=== PATIENT | male | born 1955 | race Hispanic/Latino ===

== ENCOUNTER 2016-11-13 12:23 | Inpatient (IN) | payer BC ==
[2016-11-13 12:30] VITALS: BMI 49.9
--- NOTE | 2016-11-13 13:32 | ED PDOC ---
Arrival/HPI <Luis ArmandoEdward kent - Last Filed: 11/13/16 20:12> <Celestino Vyas - Last Filed: 11/13/16 21:23> - General Chief Complaint: Shortness Of Breath Time Seen by Provider: 11/13/16 12:43 - History of Present Illness Narrative History of Present Illness (Text): 11/13/16 13:15 61 M with no pertinent PMHx presents with 6-8 weeks of gradually worsening sob. Pt states that 8 weeks ago, after flying back from [place], he had a URI infection for which he was Rx'd Abx. He started feeling sob at that time, shortly after the flight. He states that he is usually able to walk 4-6 blocks without trouble, but now he starts struggling after 2 blocks. He also states that he has trouble breathing and wheezes early in the morning. Patient denies any f/ch/cp/n/v/d. Patient further denies a cough or sputum production. He does state that his b/l LE have been more edematous. He has an appointment with Dr. Chahal next Wednesday for a nuclear stress test. No further complaints. (Edward Durán) Past Medical History - Provider Review Nursing Documentation Reviewed: Yes - Infectious Disease Hx of Infectious Diseases: None - Tetanus Immunization Tetanus Immunization: Unknown - Cardiac Hx Hypertension: Yes Hx Pacemaker: No - Pulmonary Hx Respiratory Disorders: No - Neurological Hx Paralysis: No - HEENT Hx HEENT Disorder: Yes (WEARS GLASSES) - Renal Hx Renal Disorder: No - Endocrine/Metabolic Hx Endocrine Disorders: Yes (DM TYPE 2) Hx Diabetes Mellitus Type 2: Yes - Hematological/Oncological Hx Blood Transfusions: No Hx Blood Transfusion Reaction: No - Integumentary Hx Dermatological Disorder: No - Musculoskeletal/Rheumatological Hx Musculoskeletal Disorders: No - Gastrointestinal Hx Gastrointestinal Disorders: No - Genitourinary/Gynecological Hx Genitourinary Disorders: No - Psychiatric Hx Emotional Abuse: No Hx Physical Abuse: No Hx Substance Use: No - Surgical History Hx Cholecystectomy: Yes Other/Comment: RLE sx - Anesthesia Hx Anesthesia: Yes Hx Anesthesia Reactions: No Hx Malignant Hyperthermia: No - Suicidal Assessment Feels Threatened In Home Enviroment: No <Edward Durán - Last Filed: 11/13/16 20:12> Family/Social History - Physician Review Nursing Documentation Reviewed: Yes Family/Social History: Diabetes Smoking Status: Never Smoked Hx Alcohol Use: Yes (SOCIAL) Frequency of alcohol use: Socially Hx Substance Use: No Hx Substance Use Treatment: No <Edward Durán - Last Filed: 11/13/16 20:12> Allergies/Home Meds <Edward Durán - Last Filed: 11/13/16 20:12> <AsaelCelestino Tony - Last Filed: 11/13/16 21:23> Allergies/Adverse Reactions: Allergies Sulfa (Sulfonamide Antibiotics) Allergy (Verified 11/13/16 12:30) RASH Home Medications: Home Meds Medication Instructions Recorded Confirmed Repaglinide [Prandin] 2 mg PO DAILY 06/21/13 11/13/16 Dapagliflozin Propanediol [Farxiga] 10 mg PO DAILY 08/27/14 11/13/16 Omeprazole [Prilosec] 20 mg PO DAILY 08/28/14 11/13/16 Amlodipine Besylate/Benazepril 1 cap PO DAILY 11/13/16 11/13/16 [Lotrel 10-20 mg Capsule] Benzonatate [Tessalon Perle] 200 mg pe PO TID 11/13/16 11/13/16 Budesonide [Pulmicort Flexhaler] 1 inh IH BID 11/13/16 11/13/16 Ursodiol [Actigall] 1 tab PO BID 11/13/16 11/13/16 metFORMIN [glucOPHAGE] 1 tab PO BID 11/13/16 11/13/16 Review of Systems - Physician Review All systems were reviewed & negative as marked: Yes - Review of Systems Constitutional: Normal. absent: Fatigue, Weight Change, Fevers Eyes: Normal. absent: Vision Changes, Photophobia, Eye Pain ENT: Normal. absent: Hearing Changes, Tinnitus, TMJ Pain Respiratory: SOB. absent: Cough, Sputum, Wheezing Cardiovascular: Edema. absent: Chest Pain, Palpitations, Calf Pain, SOTO, Orthopnea, Syncope Gastrointestinal: Normal. absent: Abdominal Pain, Stool Changes, Constipation, Diarrhea, Nausea, Vomiting Genitourinary Male: Normal. absent: Dysuria, Frequency, Hematuria Musculoskeletal: Normal. absent: Arthralgias, Back Pain, Neck Pain Skin: Normal. absent: Rash, Pruritis, Skin Lesions Neurological: Normal. absent: Headache, Dizziness, Focal Weakness Endocrine: Normal. absent: Diaphoresis, Polyuria, Polydipsia Hemo/Lymphatic: Normal. absent: Adenopathy, Easy Bleeding, Easy Bruising Psychiatric: Normal. absent: Anxiety, Depression, Suicidal Ideation <Edward Durán - Last Filed: 11/13/16 20:12> Physical Exam Vital Signs Reviewed: Yes Temperature: Afebrile Blood Pressure: Hypertensive Pulse: Tachycardic Respiratory Rate: Normal Appearance: Positive for: Well-Appearing, Non-Toxic, Comfortable Pain Distress: None Mental Status: Positive for: Alert and Oriented X 3 - Systems Exam Head: Present: Atraumatic, Normocephalic Pupils: Present: PERRL. No: Sluggish, Non-Reactive, Pinpoint Extroacular Muscles: Present: EOMI. No: Gaze Palsy, Entrapment Conjunctiva: Present: Normal. No: Injected, Icteric Ears: Present: Normal, NORMAL TM, Normal Canal. No: Erythema, TM Bulging Mouth: Present: Moist Mucous Membranes. No: Dry, Drooling Pharnyx: Present: Normal. No: ERYTHEMA, EXUDATE Nose (External): Present: Atraumatic. No: Abrasion, Contusion Neck: Present: Normal Range of Motion. No: Meningeal Signs, MIDLINE TENDERNESS , Paraspinal Tenderness Respiratory/Chest: Present: Clear to Auscultation, Good Air Exchange, Other ( becomes sob when talking). No: Respiratory Distress, Accessory Muscle Use Cardiovascular: Present: Regular Rate and Rhythm, Normal S1, S2. No: Murmurs Abdomen: Present: Normal Bowel Sounds. No: Tenderness, Distention, Peritoneal Signs, Rebound Back: Present: Normal Inspection. No: CVA Tenderness, Midline Tenderness, Paraspinal Tenderness Upper Extremity: Present: Normal Inspection, Normal ROM, NORMAL PULSES. No: Cyanosis, Edema, Tenderness Lower Extremity: Present: Edema (2+ pitting edema), NORMAL PULSES, Normal ROM. No: CALF TENDERNESS, Cyanosis Neurological: Present: GCS=15, CN II-XII Intact, Speech Normal, Motor Func Grossly Intact, Normal Sensory Function Skin: Present: Warm, Dry, Normal Color. No: Rashes, Diaphoretic, Erythematous Psychiatric: Present: Alert, Oriented x 3, Normal Insight, Normal Concentration , Normal Affect, Normal Mood. No: Suicidal Ideation, Homicidal Ideation <Edward Durán - Last Filed: 11/13/16 20:12> Vital Signs Temp Pulse Resp BP Pulse Ox 11/13/16 17:47 92 H 18 115/69 96 11/13/16 17:17 90 20 113/67 95 11/13/16 16:47 101 H 22 116/65 94 L 11/13/16 16:15 95 H 20 121/65 94 L 11/13/16 15:20 98 H 22 130/66 11/13/16 14:55 100 H 19 133/69 95 11/13/16 13:51 137/77 11/13/16 13:00 24 95 11/13/16 12:39 98.6 F 100 H 18 160/76 H 82 L Medical Decision Making <Luis ArmandoEdwardadolfo - Last Filed: 11/13/16 20:12> <Celestino Vyas - Last Filed: 11/13/16 21:23> ED Course and Treatment: Assessed 11/13/16 13:15 Impression 61 M presents with worsening sob and b/l LE swelling Plan - CBC, CMP, BNP - Tropes, EKG, CXR - D-Dimer, ABG - Lasix 40 mg - Reassess Reassessed 11/13/16 14:15 - CBC, CMP - D-dimer elevated - CXR shows pulm venous congestion - ABG shows elevated PCO2 - CTA ordered - Reassess Reassessed 11/13/16 15:30 - Spoke with Dr. Bella ([facility]), who agrees to admission on his service on telemetry - C/s Dr. Chahal - Low-dose SS Insulin (Edward Durán) Seen and examined with resident. 61 y/o M p/w shortness of breath on exertion that began 6 weeks ago after flight. On exam, hypoxic on room air, bilateral pitting edema, distant breath sounds. Imaging shows pulmonary vascular congestion and cardiomegaly without PE. (Celestino Vyas) - Lab Interpretations Lab Results: 11/13/16 13:45 11/13/16 13:45 Lab Results 11/13/16 14:48: POC Glucose (mg/dL) 167 H 11/13/16 14:00: pCO2 54 H, pO2 61.0 L, HCO3 26.6, ABG pH 7.30 L, ABG Total CO2 28.3 H, ABG O2 Saturation 93.7 L, ABG O2 Content 17.2, ABG Base Excess -0.7, ABG Hemoglobin 13.6, ABG Carboxyhemoglobin 2.7 H, POC ABG HHb (Measured) 6.1 H, ABG Methemoglobin 1.1, ABG O2 Capacity 18.4, Hgb O2 Saturation 90.0 L, FiO2 32.0 11/13/16 13:45: D-Dimer, Quantitative 0.86 H 11/13/16 13:45: Sodium 142, Potassium 4.8, Chloride 103, Carbon Dioxide 29, Anion Gap 15, BUN 42 H, Creatinine 1.0, Est GFR ( Amer) > 60, Est GFR ( Non-Af Amer) > 60, Random Glucose 178 H, Calcium 8.8, Total Bilirubin 1.3, AST 41, ALT 52, Alkaline Phosphatase 95, Troponin I 0.08, NT-Pro-B Natriuret Pep 1900 H, Total Protein 7.6, Albumin 4.0, Globulin 3.6, Albumin/Globulin Ratio 1.1 11/13/16 13:45: WBC 6.6, RBC 4.29, Hgb 14.2, Hct 44.8, MCV 104.4, MCH 33.1, MCHC 31.7, RDW 14.5, Plt Count 143, MPV 9.8, Gran % 80.7 H, Lymph % (Auto) 11.1 L, Story % (Auto) 6.9 H, Eos % (Auto) 0.8 L, Baso % (Auto) 0.5, Gran # 5.29, Lymph # 0.7 L, Story # 0.5, Eos # 0.1, Baso # 0.03 - RAD Interpretation Radiology Orders: 11/13/16 13:10 CHEST PORTABLE [RAD] Stat 11/13/16 14:42 ANGIO CHEST PE PROTOCOL [CT] Stat - Medication Orders Current Medication Orders: Aspirin (Ecotrin) 81 mg PO DAILY [facility] Enoxaparin Sodium (Lovenox) 30 mg SC DAILY [facility] PRN Reason: Protocol Furosemide (Lasix) 40 mg IV BID [facility] Last Admin: 11/13/16 20:29 Dose: 40 mg eMAR Start Stop Document 11/13/16 20:29 CDL (Rec: 11/13/16 20:31 CDL [id number]) Intravenous Solution Start Date 11/13/16 Start Time 20:31 End Date 11/13/16 End time 20:33 Total Infusion Time 2 MAR Blood Pressure Document 11/13/16 20:29 CDL (Rec: 11/13/16 20:31 CDL [id number]) Blood Pressure Blood Pressure (100/60-150/90) 120/60 Insulin Human Regular (Humulin R Low) 0 units SC ACHS [facility] PRN Reason: Protocol Last Admin: 11/13/16 18:11 Dose: 1 units MAR Blood Glucose Document 11/13/16 18:11 HI (Rec: 11/13/16 18:14 [id number] Blood Glucose Finger Stick Blood Glucose (70-120) 186 Subcutaneous Administrations Document 11/13/16 18:11 HI (Rec: 11/13/16 18:14 [id number] Injection Site MAR Injection Site Left Arm Charges for Administration # of Subcutaneous Administrations 1 Lisinopril (Zestril) 2.5 mg PO DAILY [facility] Pantoprazole Sodium (Protonix Ec Tab) 40 mg PO DAILY [facility] Potassium Chloride (K-Dur 20 Meq Er Tab) 20 meq PO DAILY [facility] Discontinued Medications Furosemide (Lasix) 40 mg IVP STAT STA Stop: 11/13/16 13:12 Last Admin: 11/13/16 13:51 Dose: 40 mg MAR Blood Pressure Document 11/13/16 13:51 [facility] (Rec: 11/13/16 13:52 [facility] [id number]) Blood Pressure Blood Pressure (100/60-150/90) 137/77 IVP Administration Document 11/13/16 13:51 [facility] (Rec: 11/13/16 13:52 [id number]) Charges for Administration # of IVP Administrations 1 Insulin Human Regular (Humulin R) Confirm Administered Dose 1 units .ROUTE .STK- MED ONE Stop: 11/13/16 18:13 Last Admin: 11/13/16 18:17 Dose: Iohexol (Omnipaque 350 150 Ml) Confirm Administered Dose 150 ml .ROUTE .STK-MED ONE Stop: 11/13/16 14:49 Last Admin: 11/13/16 17:48 Dose: Metoprolol Tartrate (Lopressor) 12.5 mg PO BID [facility] Stop: 11/13/16 19:16 Last Admin: 11/13/16 20:24 Dose: 12.5 mg MAR Pulse and Blood Pressure Document 11/13/16 20:24 CD[facility] (Rec: 11/13/16 20:24 CDL [id number]) Pulse Pulse Rate (60-90) 94 Blood Pressure Blood Pressure (100/60-150/90) 120/64 - PA / PHOTOGRAMMETRIC TECH / Resident Statement / has reviewed & agrees with the documentation as recorded. / has examined the patient and agrees with the treatment plan. <Celestino Vyas - Last Filed: 11/13/16 21:23> Disposition/Present on Arrival - Present on Arrival Any Indicators Present on Arrival: No History of DVT/PE: No History of Uncontrolled Diabetes: No Urinary Catheter: No History of Decub. Ulcer: No History Surgical Site Infection Following: None - Disposition Have Diagnosis and Disposition been Completed?: Yes Disposition Time: 16:00 Patient Plan: Admission <Edward Durán - Last Filed: 11/13/16 20:12> <Celestino Vyas - Last Filed: 11/13/16 21:23> - Disposition Diagnosis: CHF (congestive heart failure) Disposition: HOSPITALIZED Patient Problems: Current Active Problems Problem Status Onset CHF (congestive heart failure) Acute Condition: FAIR
[2016-11-13 14:00] LABS: BASO # 0.03 K/mm3 (0.0-2.0); BASO % 0.5 % (0.0-3.0); EOS # 0.1 (0.0-0.7); EOS % 0.8 % (1.5-5.0); GRAN # 5.29 (1.4-6.5); GRAN % 80.7 % (50.0-68.0); HEMATOCRIT 44.8 % (42.0-52.0); LYMPH # 0.7 (1.2-3.4); LYMPH % 11.1 % (22.0-35.0); MEAN CELL VOLUME 104.4 fl (80.0-105.0); MEAN CORPUSCULAR HEMOGLOBIN 33.1 pg (25.0-35.0); MEAN CORPUSCULAR HGB CONC 31.7 g/dl (31.0-37.0); MEAN PLATELET VOLUME 9.8 fl (7.0-11.0); MONO # 0.5 (0.1-0.6); MONO % 6.9 % (1.0-6.0); RED CELL DISTRIBUTION WIDTH 14.5 % (11.5-14.5); WHITE BLOOD COUNT 6.6 10^3/ul (4.5-11.0)
[2016-11-13 14:12] LABS: ARTERIAL BLOOD GAS HCO3 26.6 mmol/L (21-28); ARTERIAL BLOOD GAS O2 CAPACITY 18.4 mL/dl (16-24); ARTERIAL BLOOD GAS O2 CONTENT 17.2 ML/dl (15-23); CARBOXYHEMOGLOBIN 2.7 % (0.5-1.5); HHB 6.1 % (0-5); METHEMOGLOBIN 1.1 % (0.0-3.0)
--- NOTE | 2016-11-13 14:14 | RAD ---
HISTORY: Shortness of breath COMPARISON: 06/21/2013. FINDINGS: LUNGS: There is severe pulmonary venous congestion. There is subsegmental atelectasis in the right mid lung. PLEURA: No significant pleural effusion identified, no pneumothorax apparent. CARDIOVASCULAR: There is persistent moderate cardiomegaly. OSSEOUS STRUCTURES: No significant abnormalities. VISUALIZED UPPER ABDOMEN: Normal. OTHER FINDINGS: None. IMPRESSION: Severe pulmonary venous congestion and persistent moderate cardiomegaly. Linear atelectasis in the right mid lung.
[2016-11-13 14:16] LABS: ALB/GLOB RATIO 1.1 (1.1-1.8); ALKALINE PHOSPHATASE 95 U/L (38-126); ALT/SGPT 52 U/L (7-56); AST/SGOT 41 U/L (17-59); BILIRUBIN,TOTAL 1.3 mg/dL (0.2-1.3); BLOOD UREA NITROGEN 42 mg/dL (7-21); CALCIUM 8.8 mg/dL (8.4-10.5); CARBON DIOXIDE 29 mmol/L (21-33); CHLORIDE 103 mmol/L (98-107); GFR AFRICAN-AMERICAN > 60; GLUCOSE,RANDOM 178 mg/dL (70-110); POTASSIUM 4.8 mmol/L (3.6-5.0); SODIUM 142 mmol/L (132-148); TOTAL PROTEIN 7.6 g/dL (5.8-8.3)
[2016-11-13 14:27] LABS: TROPONIN I 0.08 ng/mL
--- NOTE | 2016-11-13 15:45 | CT ---
PROCEDURE: CT Chest with contrast (Pulmonary Angiogram) HISTORY: SOB COMPARISON: November 13, 2016. Chest x-ray TECHNIQUE: Axial computed tomography images were obtained of the chest in the pulmonary arterial phase of enhancement. Coronal and sagittal reformatted images were created and reviewed. Intravenous contrast dose: 150 cc Omnipaque 350. Mean Hounsfield unit values in the main pulmonary artery: 182.59 Radiation dose: Total exam DLP = 1085.73 mGy-cm. This CT exam was performed using one or more of the following dose reduction techniques: Automated exposure control, adjustment of the mA and/or kV according to patient size, and/or use of iterative reconstruction technique. FINDINGS: PULMONARY ARTERIES: No large, central pulmonary emboli. Based on both qualitative assessment of the study and the Hounsfield unit values this examination is nondiagnostic at and beyond the segmental branches of the pulmonary arteries. Dilated main pulmonary artery 3.94 cm consistent with but not necessarily diagnostic of pulmonary arterial hypertension. AORTA: No acute findings. No thoracic aortic aneurysm. LUNGS: Unremarkable. No nodule, mass or pulmonary consolidation. PLEURAL SPACES: Small bilateral pleural effusions. HEART: Cardiomegaly. Mild pulmonary vascular congestion. LYMPH NODES: No lymphadenopathy. BONES, CHEST WALL: Unremarkable. No fracture or destructive lesion OTHER FINDINGS: Hepatosplenomegaly incompletely visualize. Hepatic steatosis. Possible cirrhotic liver without focal hepatic masses. Trace perihepatic ascites IMPRESSION: No main, central pulmonary emboli. Limitations of the current examination: Nondiagnostic assessment at and beyond the segmental level.
[2016-11-13] MEDS: Insulin Reg-LOW-Coverage SC SCH ×2 (18:11→21:56)
[2016-11-13] MEDS ORDERED: Insulin Regular 1 UNITS/0.01 ML ML ONE (18:12)
[2016-11-14] MEDS: Potassium Chloride 20 mEq ER Tab PO SCH ×2 (00:24→09:33)
--- NOTE | 2016-11-14 01:06 | CARD ---
APPROVED REPORT EKG Measurement Heart [id number] MA [id number] <Conclusion> Sinus tachycardia RBBB Right ventricular hypertrophy Inferior infarct, age undetermined Anterolateral infarct, age undetermined Abnormal ECG
--- NOTE | 2016-11-14 01:48 | CON ---
DATE: 11/13/2016 LOCATION: The patient in room 270, bed 1. REASON FOR CONSULTATION: Congestive heart failure, hypertension, diabetes, and morbid obesity. HISTORY OF PRESENT ILLNESS: A 61-year-old male states that since last few weeks, he started getting shortness of breath on minimal exertion and is continued to get worse and he is getting shortness of breath on less distance, also gets swelling of legs. The patient was feeling very weak and tired and more short of breath today and he came to the emergency room and found to have congestive heart failure. The patient denied any chest pain or palpitation. The patient stated he sleeps with two pillows. PAST MEDICAL HISTORY: Positive for diabetes and hypertension. PERSONAL HISTORY: Denies smoking. Drinks socially. ALLERGIES: THE PATIENT IS ALLERGIC TO SULFONAMIDE, ANTIBIOTICS. HOME MEDICATIONS: The patient was on Prandin 2 mg p.o. daily, Farxiga 10 mg p.o. daily, omeprazole 20 mg daily, Lotrel 10/20 mg one capsule daily, Tessalon Perles 200 mg t.i.d., Budesonide one inhalation b.i.d., Actigall one tablet p.o. b.i.d., metformin 500 mg b.i.d. FAMILY HISTORY: Not significant. PAST MEDICAL HISTORY: The patient had knee surgery and infected foot treatment. REVIEW OF SYSTEMS: All the system reviewed. Positive mentioned in the history other than negative. PHYSICAL EXAMINATION: GENERAL: The patient is afebrile. VITAL SIGNS: Blood pressure 115/69, respiration 18, pulse 92. HEENT: Head is normocephalic. Eyes: Pupils are normal. Conjunctiva normal. Nose and throat, normal. NECK: JVP low. Carotids are equal. Thorax, AP diameter normal. LUNGS: Basilar rales. CARDIOVASCULAR: S1 and S2. ABDOMEN: Markedly protuberant. No organomegaly. EXTREMITIES: The patient has changes of chronic venous stasis and has edema bilaterally. No clubbing. No cyanosis. LABORATORY DATA: WBC 6.6, hemoglobin 14.2, hematocrit 44.8, platelets 143. Sodium 142, potassium 4.8, BUN 42, creatinine 1.0, random sugar 184, random glucose 178, anti-pro brain natriuretic peptide 1900, total protein and albumin normal. Chest x-ray consisted with congestive heart failure. 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 DIAGNOSIS: Congestive failure heart, hypertension, diabetes mellitus type 2, renal dysfunction, morbid obesity, and chronic venous stasis. PLAN: We will give Lasix 40 mg IV b.i.d., metoprolol 12.5 mg p.o. b.i.d., Lovenox 30 mg subcutaneous daily, Protonix 40 mg daily, lisinopril 2.5 mg daily, Ecotrin 81 mg daily, potassium 20 mEq p.o. daily. The patient already on insulin coverage. We will do an echocardiogram. We will also check TSH and lipid profile and we will repeat SMA-7 in the morning. We will follow with you. Inez Chahal MD
[2016-11-14 08:29] LABS: BLOOD UREA NITROGEN 42 mg/dL (7-21); CALCIUM 8.9 mg/dL (8.4-10.5); CARBON DIOXIDE 31 mmol/L (21-33); CHLORIDE 100 mmol/L (95-110); CHOLESTEROL 179 mg/dL (130-200); GFR AFRICAN-AMERICAN > 60; GLUCOSE,RANDOM 151 mg/dL (70-110); MAGNESIUM 2.2 mg/dL (1.7-2.2); PHOSPHOROUS 4.4 mg/dL (2.5-4.5); POTASSIUM 4.8 mmol/L (3.6-5.0); SODIUM 140 mmol/L (132-148)
[2016-11-14] MEDS: Insulin Reg-LOW-Coverage SC SCH ×4 (08:31→21:54)
[2016-11-14] MEDS: Enoxaparin 30 mg Syringe SC SCH (09:33)
[2016-11-14] MEDS: Pantoprazole 40 mg EC Tab PO SCH (09:33)
[2016-11-14 11:55] VITALS: RESP 20
--- NOTE | 2016-11-14 17:25 | PN ---
DATE: 11/14/2016 LOCATION: The patient is in room 270, bed 1. REASON FOR CONSULTATION: Congestive heart failure, hypertension, diabetes, and morbid obesity. SUBJECTIVE: The patient states that he still has shortness of breath and swelling of leg, but shortness of breath is less marked as compared to yesterday and swelling of leg is also decreasing. Denies chest pain or palpitation. PHYSICAL EXAMINATION: VITAL SIGNS: Blood pressure 148/85, earlier pressure was 123/73, respirations 20, pulse 86, and temperature 98.2. HEENT: Head is normocephalic. Eyes, pupils normal, conjunctivae normal. Nose and throat normal. NECK: JVP low. Carotids are equal. THORAX: AP diameter normal. LUNGS: Basal rales. CARDIOVASCULAR: S1 and S2. ABDOMEN: Markedly protuberant. No organomegaly. EXTREMITIES: No clubbing or cyanosis. The patient has chronic venous stasis changes in the leg with marked edema on the legs. LABORATORY DATA: Today's lab show sodium 140, potassium 4.8, BUN 42, creatinine 1.2, random sugar 210, and another sugar was 151. TSH is normal. Lipid profile is normal. DIAGNOSES: Congestive heart failure, hypertension, diabetes mellitus, renal dysfunction, morbid obesity, and chronic venous stasis changes on the legs. PLAN: The patient seems to be diuresing with Lasix 40 IV b.i.d. and aspirin 81 mg p.o. daily. The patient yesterday received metoprolol 12.5 mg p.o. b.i.d., but only stat dose received. We are going to reorder metoprolol 12.5 b.i.d., Lovenox 30 mg subcutaneous daily, and Protonix 40 p.o. daily. We will increase Zestril to 10 mg p.o. daily. Echo has been already ordered. We will follow with you. Ienz Chahal MD
[2016-11-15 06:08] VITALS: TEMP 97.6; O2SAT 93
--- NOTE | 2016-11-15 07:45 | HP ---
CHIEF COMPLAINT: Three weeks of worsening shortness of breath. HISTORY OF PRESENT ILLNESS: This is a 61-year-old man known to my office for many years. He is always a large fellow and has become more and more morbidly obese. He says over the last three weeks he developed worsening shortness of breath, was seen in the office by Dr. Juliano Bella, sent for cardiology evaluation. He was seen by Dr. Chahal in the office. EKG was unremarkable. Echocardiogram and stress test was scheduled. Diet was emphasized; however, in the past week, he has worsening dyspnea with a slightest bit of exertion and came to the emergency room because he was more concerned. In the emergency room, pulmonary embolus is entertained and ruled out. The patient was found to be volume overloaded, CHF showing congestion in the lungs. He was treated with IV Lasix and admitted. He was seen in the ER late last night by Dr. Chahal and again this morning. PAST MEDICAL HISTORY: Significant for hypertension and diabetes. There is no history of coronary artery disease, cardiac catheterization, stents, or other heart symptoms. There is no history of tuberculosis, asthma, seizures, gout, COPD, TIA, and CVA. He did have a history of a foot infection and varicose veins, venous insufficiency, and venostasis of lower extremities and morbid obesity. MEDICATIONS: See list above. ALLERGIES: NONE KNOWN. SOCIAL HISTORY: Tobacco, no. Alcohol, rare occasional. REVIEW OF SYSTEMS: Multi-point review of systems is significant only for those items mentioned above as it would relate to his arthritis and his obesity. PHYSICAL EXAMINATION: GENERAL: The patient was seen this Wednesday morning in room 270, bed 1, sitting at the edge of the bed, much more comfortable and clinically improves and as described on admission. HEENT: Conjunctivae are pink. Mucous membranes are moist. NECK: Supple without masses. LUNGS: Clear. HEART: Regular, not tachycardic. ABDOMEN: Morbidly obese. EXTREMITIES: Obese with +1 to +2 soft pitting edema, most likely the edema of obesity. IMPRESSION: 1. Morbid obesity. 2. Congestive heart failure. 3. Volume overload. 4. Anasarca. 5. Hypertension. 6. Diabetes. PLAN: The patient was scheduled for an echocardiogram later today, certainly thallium stress test to rule out underlying coronary artery disease would be indicated. We will continue to diurese him aggressively with IV Lasix report on his echo. I suspect LV function would be rather good and a large portion of his exertional dyspnea and volume overload is related to obesity, but we will need to look at cardiac workup first. Pulmonary embolus and DVTs have been ruled out. Hypertension and diabetes have been under reasonable control. I talked with the patient at great length and counseled him regarding the morbid obesity and diet. He has been hearing this from the family as well and realizes it is time to change. Jose Angel Bella MD
[2016-11-15] MEDS: Insulin Reg-LOW-Coverage SC SCH ×2 (08:48→12:24)
[2016-11-15] MEDS: Pantoprazole 40 mg EC Tab PO SCH (10:00)
[2016-11-15] MEDS: Potassium Chloride 20 mEq ER Tab PO SCH (10:00)
[2016-11-15] MEDS: Enoxaparin 30 mg Syringe SC SCH (10:02)
--- NOTE | 2016-11-15 10:24 | RAD ---
HISTORY: COMPARISON: 11/13/2016 TECHNIQUE: Chest PA and lateral FINDINGS: LINES AND TUBES: None. LUNG AND PLEURA: There is interval improvement in pulmonary venous congestion. There are bilateral small pleural effusions, larger on the right. There is right lower lobe subsegmental atelectasis and mild left basilar atelectasis. There is fluid in the minor fissure HEART AND MEDIASTINUM: The heart is not enlarged. The hilar and mediastinal contours are within normal limits. SKELETAL STRUCTURES: The bony structures are within normal limits for the patient's age. VISUALIZED UPPER ABDOMEN: Normal. OTHER FINDINGS: None. IMPRESSION: Improving congestive heart failure.
--- NOTE | 2016-11-15 11:42 | CARD ---
APPROVED REPORT EXAM: Two-dimensional and M-mode echocardiogram with Doppler and color Doppler. INDICATION 2D DIMENSIONS IVSd1.4 (0.7-1.1cm)LVDd5.2 (3.9-5.9cm) PWd1.3 (0.7-1.1cm)LVDs4.0 (2.5-4.0cm) FS (%) 22.9 %LVEF (%)45.7 (>50%) M-Mode DIMENSIONS Left Atrium (MM)5.70 (2.5-4.0cm)Aortic Root3.80 (2.2-3.7cm) Aortic Cusp Exc.2.00 (1.5-2.0cm) Aortic Valve AoV Peak Skotcifq152.0cm/Claude Peak GR.6mmHg Mitral Valve MV E Siwizity294.0cm/sMV E Peak Gr.8mmHgMV E Mean Gr.4mmHg E/A ratio0.0 TDI Lateral E' Peak V7.31cm/sMedial E' Peak V5.17cm/sE/Lateral E'17.5 E/Medial E'24.8 Tricuspid Valve TR Peak [id number]/sRAP [id number] Peak Gr.21mmHg [id number] LEFT VENTRICLE The left ventricle is normal size. There is mild concentric left ventricular hypertrophy. The systolic function is mildly impaired.EF-45% There is mild to moderate hypokinesis in the apical anterior wall. Transmitral Doppler flow pattern is Grade III-reversible restrictive diastolic dysfunction. No left ventricle thrombus noted on this study. There is no ventricular septal defect visualized. There is no left ventricular aneurysm. There is no mass noted in the left ventricle. RIGHT VENTRICLE The right ventricle is normal size. There is normal right ventricular wall thickness. The right ventricular systolic function is normal. ATRIA The left atrium is mildly dilated. The right atrium size is normal. The interatrial septum is intact with no evidence for an atrial septal defect. AORTIC VALVE The aortic valve is calcified and displays decreased opening. There is trace aortic regurgitation. There is mild valvular aortic stenosis. There is no aortic valvular vegetation. MITRAL VALVE The mitral valve is thickened but opens well. Mitral annular calcification is moderate to severe. Mitral regurgitation is trace. There is no mitral valve stenosis. There is no evidence of mitral valve prolapse. TRICUSPID VALVE The tricuspid valve leaflets are thickened , but open well. There is trace tricuspid regurgitation.RVSP-31 mmof hg. There is no tricuspid valve stenosis. There is no tricuspid valve prolapse or vegetation. PULMONIC VALVE The pulmonic valve is mildly thickened. There is trace pulmonic valvular regurgitation. There is no pulmonic valvular stenosis. GREAT VESSELS The aortic root is normal in size. The ascending aorta is normal in size. The pulmonary artery is normal. The IVC was not visualized. PERICARDIAL EFFUSION There is no pleural effusion. There is no pericardial effusion. <Conclusion> The left ventricle is normal size. There is mild concentric left ventricular hypertrophy. The systolic function is mildly impaired.EF-45% There is trace aortic regurgitation. There is mild valvular aortic stenosis. The aortic valve is calcified and displays decreased opening. Mitral regurgitation is trace. There is trace tricuspid regurgitation.RVSP-31 mmof hg. The IVC was not visualized. There is no pericardial effusion. TDS poor Sonic Window.
[2016-11-15 12:46] VITALS: BP 106/63; PULSE 71
--- NOTE | 2016-11-15 13:37 | PN ---
DATE: 11/15/2016 REASON FOR CONSULTATION AND FOLLOWUP: Congestive heart failure, hypertension, diabetes, and morbid obesity. SUBJECTIVE: The patient's breathing is better and swelling of leg is better. Denies chest pain, shortness of breath, or palpitation. PHYSICAL EXAMINATION: VITAL SIGNS: Blood pressure 148/75, respirations 20, pulse 75, and temperature 97.6. HEENT: Head is normocephalic. Eyes, pupils normal, conjunctivae normal. Nose and throat normal. NECK: JVP low. Carotids are equal. THORAX: AP diameter normal. LUNGS: Rales have improved. CARDIOVASCULAR: S1 and S2. ABDOMEN: Protuberant. No organomegaly. Bowel sounds normal. EXTREMITIES: No clubbing. No cyanosis. Chronic venous stasis marking on the lower legs. Edema of leg has gotten less. LABORATORY DATA: Done on 11/13/2016 and 11/14/2016 and there were reported no previous notes. The patient has a chest x-ray today, which showed improvement of the congestive heart failure. DIAGNOSES: Congestive heart failure, hypertension, diabetes mellitus, renal dysfunction, morbid obesity, and chronic venous stasis changes on the legs. PLAN: The patient insist on going home today and he promised he will do stress test outpatient. Actually, he is scheduled for coming for stress test. Dr. Bella is going to give the prescriptions for medication. All of the instructions were given to the patient. He will not go back to work until he has stress test done and he was advised to lose weight. We will follow with you. Inez Chahal MD
== END 2016-11-15 14:10 | disposition home or self-care (01) | DRG 292 ==
LOC: ED 12:23 → ERH 16:01 → 2RSO 19:32
PROVIDERS: ADMIT Internal Medicine; ATTEND Internal Medicine
DX: I11.0 Hypertensive heart disease with heart failure (principal); I50.9 Heart failure, unspecified; Z68.42 Body mass index [BMI] 45.0-49.9, adult; E66.01 Morbid (severe) obesity due to excess calories; E11.9 Type 2 diabetes mellitus without complications; I87.2 Venous insufficiency (chronic) (peripheral); N28.9 Disorder of kidney and ureter, unspecified; Z79.84 Long term (current) use of oral hypoglycemic drugs; Z90.49 Acquired absence of other specified parts of digestive tract; Z88.2 Allergy status to sulfonamides

== ENCOUNTER 2016-12-07 06:11 | Day surgery (SDC) | payer BC ==
[2016-12-01 11:38] VITALS: BMI 45.9
--- NOTE | 2016-12-05 18:59 | HP ---
REASON FOR ADMISSION: Left heart cath, abnormal stress test, unstable angina, diabetes, hypertension, and morbid obesity. BRIEF CLINICAL HISTORY: A 61-year-old male with past medical history significant for morbid obesity, diabetes, hypertension, hyperlipidemia, and cardiomyopathy complaining of chest pain. So the patient underwent stress test that revealed abnormal stress myocardial perfusion study dated 11/20/2016. This is significant for interseptal ischemia, ejection fraction 17%. The patient is scheduled for active cardiac cath and possible angioplasty. The patient is complaining of chest pain and dyspnea on exertion. PAST MEDICAL HISTORY: Significant for diabetes, hypertension, hyperlipidemia, and morbid obesity. Previous cardiac workup as follows: The patient had echocardiography done on 11/14/2016, at [facility] that showed ejection fraction of 45%, trace aortic regurgitation, mild valvular aortic stenosis, aorta was calcified, trace mitral regurgitation, tricuspid regurgitation, RV systolic pressure of 31. Left atrium is mildly dilated and right atrium is normal. Right ventricle has normal function and normal LV size. The patient underwent a stress test dated 11/20/2016, it was a Lexiscan that showed abnormal SPECT myocardial perfusion with a fixed anteroseptal apical defect consistent with myocardial injury or infarct in the past and ejection fraction of 17%. REVIEW OF SYSTEMS: As per HPI. CURRENT MEDICATIONS: The patient is taking at home; metformin one tablet twice a day, Prandin 2 mg daily, Lasix 20 mg daily, omeprazole 20 mg daily, metoprolol, Lopressor 25 mg q.12 hours, Ecotrin 81 mg, amlodipine 10 mg, and benazepril 20 mg daily. ALLERGIES: ALLERGY TO SULFONAMIDES. PHYSICAL EXAMINATION VITAL SIGNS: Height of the patient is 5 feet 10 inches, weight of the patient is 320 pounds, body mass index 45.9 kg/m2. HEENT: PERRLA intact. NECK: Supple. No carotid bruit or thyromegaly. CHEST: Clear to auscultation. HEART: S1 and S2, regular. ABDOMEN: Soft. EXTREMITIES: Clubbing and cyanosis negative. LABORATORY DATA: Blood workup pending. EKG shows a normal sinus. IMPRESSION: 1. Morbid obesity. 2. Unstable angina. 3. Diabetes. 4. Hypertension. 5. Hyperlipidemia. 6. Abnormal stress test. 7. Chest pain. 8. No dyspnea on exertion. 9. Cardiomyopathy, rule out ischemic cardiomyopathy. RECOMMENDATIONS: We will follow the blood, once it is available. If the hemoglobulin, BUN, and creatinine is stable we will give 300 mg of prazosin, loaded aspirin, Plavix, and do the cardiac catheterization. Further recommendation after cardiac catheterization. We will follow with you. Thank you Dr. Bella/Dr. Chahal for providing us the opportunity in taking care of the patient, Chaparro Eller. Inez Guillen MD
[2016-12-07 07:08] LABS: BASO # 0.04 K/mm3 (0.0-2.0); BASO % 0.6 % (0.0-3.0); EOS # 0.2 (0.0-0.7); EOS % 3.3 % (1.5-5.0); GRAN # 4.48 (1.4-6.5); GRAN % 67.7 % (50.0-68.0); HEMATOCRIT 46.9 % (42.0-52.0); LYMPH # 1.2 (1.2-3.4); LYMPH % 18.7 % (22.0-35.0); MEAN CORPUSCULAR HEMOGLOBIN 32.1 pg (25.0-35.0); MEAN CORPUSCULAR HGB CONC 32.2 g/dl (31.0-37.0); MEAN PLATELET VOLUME 9.9 fl (7.0-11.0); MONO # 0.6 (0.1-0.6); MONO % 9.7 % (1.0-6.0); RED CELL DISTRIBUTION WIDTH 13.7 % (11.5-14.5); WHITE BLOOD COUNT 6.6 10^3/ul (4.5-11.0)
[2016-12-07 07:10] LABS: MEAN CELL VOLUME 99.6 fl (80.0-105.0)
[2016-12-07 07:22] LABS: BLOOD UREA NITROGEN 38 mg/dL (7-21); CALCIUM 9.5 mg/dL (8.4-10.5); CARBON DIOXIDE 33 mmol/L (21-33); CHLORIDE 101 mmol/L (98-107); CHOLESTEROL 199 mg/dL (130-200); GFR AFRICAN-AMERICAN > 60; GLUCOSE,RANDOM 134 mg/dL (70-110); SODIUM 143 mmol/L (132-148)
[2016-12-07 07:33] LABS: INR 1.01 (0.93-1.08); PARTIAL THROMBOPLASTIN TIME 26.8 Seconds (23.7-30.8)
[2016-12-07] MEDS ORDERED: Lidocaine 2% Inj (20ml) ONE (07:41)
[2016-12-07] MEDS ORDERED: Nitroglycerin 50mg in D5W 50 MG/250 ML BOTTLE IV ONE (07:42)
[2016-12-07] MEDS ORDERED: Midazolam 2 MG/2 ML VIAL ONE (07:44)
[2016-12-07] MEDS ORDERED: Iodixanol 320 MG/ML 200 ML BOTTLE IV ONE (07:44)
[2016-12-07 08:05] VITALS: O2SAT 95
[2016-12-07] MEDS ORDERED: Iohexol 350mgl/ml 50 ML ONE (08:43)
[2016-12-07] MEDS ORDERED: Eptifibatide 20 mg/10mL Inj IVP ONE (08:48)
[2016-12-07] MEDS ORDERED: Iodixanol 320 MG/ML 100 ML BOTTLE IV ONE ×2 (08:49→09:08)
[2016-12-07] MEDS ORDERED: Sodium Chloride 0.9% 1,000 ML IV SCH (09:45)
[2016-12-07] MEDS ORDERED: AMLODIPINE BESYLATE PO SCH (10:00)
[2016-12-07] MEDS ORDERED: BENAZEPRIL PO SCH (10:00)
[2016-12-07 11:09] VITALS: TEMP 98.7
[2016-12-07] MEDS ORDERED: Insulin Reg-LOW-Coverage SC SCH (11:30)
[2016-12-07 12:19] LABS: BLOOD UREA NITROGEN 36 mg/dL (7-21); CARBON DIOXIDE 28 mmol/L (21-33); CHLORIDE 101 mmol/L (98-107); GFR AFRICAN-AMERICAN > 60; GLUCOSE,RANDOM 161 mg/dL (70-110); POTASSIUM 4.6 mmol/L (3.6-5.0); SODIUM 139 mmol/L (132-148)
[2016-12-07 12:42] LABS: BASO # 0.02 K/mm3 (0.0-2.0); BASO % 0.3 % (0.0-3.0); EOS # 0.1 (0.0-0.7); EOS % 1.5 % (1.5-5.0); GRAN # 4.93 (1.4-6.5); GRAN % 75.7 % (50.0-68.0); HEMATOCRIT 43.1 % (42.0-52.0); LYMPH # 1.1 (1.2-3.4); LYMPH % 16.1 % (22.0-35.0); MEAN CELL VOLUME 98.6 fl (80.0-105.0); MEAN CORPUSCULAR HEMOGLOBIN 32.3 pg (25.0-35.0); MEAN CORPUSCULAR HGB CONC 32.7 g/dl (31.0-37.0); MEAN PLATELET VOLUME 9.8 fl (7.0-11.0); MONO # 0.4 (0.1-0.6); MONO % 6.4 % (1.0-6.0); RED CELL DISTRIBUTION WIDTH 13.6 % (11.5-14.5); WHITE BLOOD COUNT 6.5 10^3/ul (4.5-11.0)
[2016-12-07] MEDS ORDERED: Bacitracin 500 Units/gm Oint Foilpak UD ONE (14:39)
[2016-12-07 15:05] VITALS: BP 120/70; PULSE 88; RESP 18
--- NOTE | 2016-12-07 18:19 | CARD ---
APPROVED REPORT Procedure(s) performed: Left Heart Catheterization PTCA with Stenting of Proximal LAd with HUMBERTO PTCA with Stenting of Mid LAD with HUMBERTO HISTORY The patient is a 61 year-old male with a history of : most recent EF: 17%. (EF Method: RADIONUCLIDE), previous CHF, diabetes mellitus with oral treatment , hypertension , dyslipidemia , chest Pain and abnormal stress test. INDICATION The indication(s) include : positive stress test, dyspnea. CASE TECHNIQUE The patient was brought electively to the Cardiac Catheterization Laboratory in a fasting state and was prepped and draped in a sterile manner. The left wrist was infiltrated with 2% Lidocaine subcutaneous anesthesia. A 6 Fr Glidesheath (Radial) sheath was inserted into the left radial artery without difficulty. Coronary angiography was performed using coronary diagnostic catheters. The left coronary system was accessed and visualized with a Diagnostic ,6 Fr JL 4.5 catheter. The right coronary system was accessed and visualized with a Diagnostic ,5 Fr JR 4 catheter. The left ventricle was accessed and visualized with a 5 Fr Pigtail 145 (Angled) catheter. Left ventricular/Aortic Valve gradient assessed on pullback. Left ventriculogram was performed in ROJAS projection. Pre-demployment femoral angiogram was performed . Closure device was deployed with a Fr TR Band without any complications. The patient tolerated the procedure well and there were no complications associated with the procedure. Vessel Analysis The patient's coronary anatomy is co-dominant. The left main coronary artery is a large size vessel with diffuse calcification noted throughout this vessel and without significant stenosis. The left main trifurcates to the left anterior descending, circumflex, and ramus. The left anterior descending artery is a medium size vessel with diffuse calcification noted throughout this vessel and with significant stenosis. There is a 95% stenosis in the proximal segment. Distal LAd is diffusely diseased, Mid LAD has 80% stenosis. The first diagonal branch is a small size vessel . The second diagonal branch is a small size vessel . The circumflex artery is a large size vessel with diffuse calcification noted throughout this vessel and without significant stenosis. The first obtuse marginal branch is a large size vessel with diffuse calcification noted throughout this vessel and without significant stenosis. The second obtuse marginal branch is a large size vessel with diffuse calcification noted throughout this vessel and without significant stenosis. The left posterior descending artery is a medium size vessel with diffuse calcification noted throughout this vessel and without significant stenosis. There is a 50% stenosis . The ramus intermedius artery is a large size vessel with diffuse calcification noted throughout this vessel and without significant stenosis. The right coronary artery is a large size vessel with diffuse calcification noted throughout this vessel and without significant stenosis. The right posterior descending artery is a medium size vessel with diffuse calcification noted throughout this vessel and without significant stenosis. There is a 50-60% stenosis in the distal segment. Left Ventricle The left ventricle is mildly enlarged in size with mildly decreased contractility. Ischemic cardiomyopathy. The left ventricular ejection fraction is estimated to be 45%. The left ventricular end diastolic pressure is 25 mmHg. There was no gradient across the aortic valve upon pullback. PCI Technique Lesion Anticoagulation was achieved with Heparin. Percutaneous coronary intervention was performed on the proximal left anterior descending artery segment. The lesion stenosis prior to intervention was 95% with JREEMY 2 flow. A 6 Fr XB 3.5 Guide Catheter was used to engage the ostium. BALLOON DILATION A Balloon catheter 2.5 x 15 mm Sprinter RX was inserted and inflated up to 12.00atm for 27seconds. STENT DEPLOYMENT A drug-eluting stent 2.75 x 30 mm Resolute HUMBERTO was inserted and inflated up to 14.00atm for 16seconds. Another HUMBERTO Distal to first overlapping to first Humberto deployed in Mid LAD POST STENT DEPLOYMENT BALLOON DILATION A Balloon catheter 3.0 x 15 mm Trek RX NC was inserted and inflated up to 14.00atm for 16seconds. Final angiography reveals 0 % stenosis with JEREMY 3 flow. PCI Technique Lesion 2 Percutaneous Coronary Intervention was performed on the mid left anterior descending artery segment. The lesion stenosis prior to intervention was 80% with JEREMY 2 flow. A 6 Fr XB 3.5 Guide Catheter was used to engage the ostium. BALLOON DILATION A Balloon catheter 2.5 x 15 mm Sprinter RX was inserted and inflated up to 12atm for 20seconds. STENT DEPLOYMENT A drug-eluting stent 2.5 x 14 mm Resolute HUMBERTO was inserted and inflated up to 10atm for 20seconds. POST STENT DEPLOYMENT BALLOON DILATION A Balloon catheter 3.0 x 15 mm Trek RX NC was inserted and inflated up to 12atm for 20seconds. Final angiography reveals 0 % stenosis with JEREMY 3 flow. 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 EF-45%, EDP-25 mmoh Hg. Successful PTCA with HUMBERTO of Proximal and Mid LAD Morbid obesity NO Significant Gradient across Aortic Valve Noted (NO by Cath), Mild to Moderate by Echo. Recommendations Cardiac Rehabilitation ReferralDaily ASA with Plavix for at least one year Aggressive Medical TherapyCardiac Risk Reduction Program Weight Loss Reduction Program CC; DRs. Manuel Bella / Fela.
--- NOTE | 2016-12-07 19:58 | CARD ---
APPROVED REPORT EKG Measurement Heart [id number] <Conclusion> Normal sinus rhythm Possible Left atrial enlargement Right bundle branch block Septal infarct, age undetermined Abnormal ECG
== END 2016-12-07 16:31 | disposition home or self-care (01) ==
LOC: CATH 06:11 → 2RSO 09:50 → CATH 16:31
PROVIDERS: ATTEND Internal Medicine Cardiovascular Disease
DX: I25.110 Atherosclerotic heart disease of native coronary artery with unstable angina pectoris (principal); I25.5 Ischemic cardiomyopathy; I11.0 Hypertensive heart disease with heart failure; I50.9 Heart failure, unspecified; I08.3 Combined rheumatic disorders of mitral, aortic and tricuspid valves; E66.01 Morbid (severe) obesity due to excess calories; Z68.42 Body mass index [BMI] 45.0-49.9, adult; E11.9 Type 2 diabetes mellitus without complications; Z79.84 Long term (current) use of oral hypoglycemic drugs; E78.5 Hyperlipidemia, unspecified; Z88.2 Allergy status to sulfonamides
CPT/HCPCS: 36415; 80048; 80061; 82948; 85025; 85175; 85610; 85730; 86850; 86900; 93005; 93458; 99152; 99153; C1725 ×2; C1769 ×2; C1874 ×2; C1887 ×2; C9600; J1327; J1644 ×2; J2250; J3010; J7030; J7040; Q9967 ×2

== ENCOUNTER 2017-11-09 11:22 | Inpatient (IN) | payer BC ==
[2017-11-09 11:37] VITALS: BMI 49.9
[2017-11-09 11:58] LABS: BASO # 0.03 K/mm3 (0.0-2.0); BASO % 0.4 % (0.0-3.0); EOS # 0.2 (0.0-0.7); EOS % 2.4 % (1.5-5.0); GRAN # 6.07 (1.4-6.5); GRAN % 81.5 % (50.0-68.0); HEMOGLOBIN 9.7 g/dL (14.0-18.0); LYMPH # 0.7 (1.2-3.4); LYMPH % 9.3 % (22.0-35.0); MEAN CELL VOLUME 83.3 fl (80.0-105.0); MEAN CORPUSCULAR HEMOGLOBIN 24.6 pg (25.0-35.0); MEAN CORPUSCULAR HGB CONC 29.5 g/dl (31.0-37.0); MEAN PLATELET VOLUME 9.5 fl (7.0-11.0); MONO # 0.5 (0.1-0.6); MONO % 6.4 % (1.0-6.0); RBC 3.95 10^6/uL (3.5-6.1); RED CELL DISTRIBUTION WIDTH 16.5 % (11.5-14.5); WHITE BLOOD COUNT 7.5 10^3/ul (4.5-11.0)
--- NOTE | 2017-11-09 12:03 | ED PDOC ---
Arrival/HPI - General Historian: Patient - History of Present Illness Time/Duration: Prior to Arrival Symptom Onset: Sudden Symptom Course: Unchanged <Vladimir Nieto - Last Filed: 11/09/17 20:54> <Jeremias Ayoub - Last Filed: 11/09/17 22:16> - General Chief Complaint: Palpitations Time Seen by Provider: 11/09/17 11:23 - History of Present Illness Narrative History of Present Illness (Text): 11/09/17 11:58 62 year old male, past medical history of 2 OANH placed in RCA and LAD, diabetes , hypertension, and hyperlipidemia, presents to the emergency department with rapid afib. Patient was upstairs getting a stress test with Dr. Chahal when he converted to rapid afib. At that time he was given Digoxin, verapamil, and beta ba which did not bring the heart rate down. Patient was subsequently sent to the Emergency room. This is new onset for him, no known prior history. He denies feeling short of breath, dizzy, lightheaded, or any loss of consciousness. He denies palpitations or chest pain with radiation to the arm, back, or jaw. He is currently on plavix and aspirin, no anticoagulants. Denies fever, chills, nausea, vomiting, cough, headache, or urinary symptoms. PMD: Dr. De Jesus Cardio: Dr. Chahal (Vladimir Nieto) Past Medical History - Provider Review Nursing Documentation Reviewed: Yes - Infectious Disease Hx of Infectious Diseases: None - Tetanus Immunization Tetanus Immunization: Unknown - Cardiac Hx Congestive Heart Failure: Yes Hx Hypertension: Yes Hx Pacemaker: No - Pulmonary Hx Respiratory Disorders: No - Neurological Hx Paralysis: No - HEENT Hx HEENT Disorder: Yes Other/Comment: wear glasses - Renal Hx Renal Disorder: Yes Hx Kidney Stones: Yes - Endocrine/Metabolic Hx Diabetes Mellitus Type 2: Yes - Hematological/Oncological Hx Blood Transfusions: No Hx Blood Transfusion Reaction: No - Integumentary Hx Dermatological Disorder: No - Musculoskeletal/Rheumatological Hx Musculoskeletal Disorders: Yes - Gastrointestinal Hx Gastrointestinal Disorders: Yes Hx Gall Bladder Disease: Yes (cholecystectomy) Hx Gastroesophageal Reflux: Yes - Genitourinary/Gynecological Hx Genitourinary Disorders: No - Psychiatric Hx Emotional Abuse: No Hx Physical Abuse: No Hx Substance Use: No - Surgical History Hx Cardiac Catheterization: Yes Hx Cholecystectomy: Yes - Anesthesia Hx Anesthesia Reactions: No Hx Malignant Hyperthermia: No - Suicidal Assessment Feels Threatened In Home Enviroment: No <Vladimir Nieto - Last Filed: 11/09/17 20:54> Family/Social History - Physician Review Nursing Documentation Reviewed: Yes Family/Social History: Unknown Family HX Smoking Status: Never Smoked Hx Alcohol Use: Yes (SOCIAL) Frequency of alcohol use: Socially Hx Substance Use: No Hx Substance Use Treatment: No <Vladimir Nieto - Last Filed: 11/09/17 20:54> Allergies/Home Meds <Vladimir Nieto - Last Filed: 11/09/17 20:54> <Jeremias Ayoub - Last Filed: 11/09/17 22:16> Allergies/Adverse Reactions: Allergies Sulfa (Sulfonamide Antibiotics) Allergy (Verified 11/09/17 11:27) RASH Home Medications: Home Meds Medication Instructions Recorded Confirmed Repaglinide [Prandin] 2 mg PO DAILY 06/21/13 11/09/17 Dapagliflozin Propanediol [Farxiga] 10 mg PO DAILY 08/27/14 11/09/17 Omeprazole [Prilosec] 20 mg PO DAILY 08/28/14 11/09/17 metFORMIN [glucOPHAGE] 1 tab PO BID 11/13/16 11/09/17 Benzonatate [Tessalon Perles] 200 mg PO TID 12/07/16 11/09/17 Amlodipine Besylate/Benazepril 1 cap PO DAILY 11/09/17 11/09/17 [Lotrel 10-20 mg Capsule] Atorvastatin [Lipitor] 10 mg PO DAILY 11/09/17 11/09/17 Cyclobenzaprine [Cyclobenzaprine 10 mg PO DAILY 11/09/17 11/09/17 HCl] Furosemide 40 mg PO DAILY 11/09/17 11/09/17 Meloxicam [Mobic] 15 mg PO DAILY 11/09/17 11/09/17 Review of Systems - Physician Review All systems were reviewed & negative as marked: Yes - Review of Systems Constitutional: absent: Fevers Eyes: absent: Vision Changes ENT: absent: Hearing Changes Respiratory: absent: SOB, Cough Cardiovascular: Edema. absent: Chest Pain, Palpitations, Calf Pain, Syncope Gastrointestinal: absent: Abdominal Pain, Nausea, Vomiting Genitourinary Male: absent: Dysuria, Hematuria Musculoskeletal: Back Pain Skin: Skin Lesions Neurological: absent: Headache, Dizziness, Focal Weakness, Speech Changes, Facial Droop Endocrine: absent: Diaphoresis <Vladimir Nieto - Last Filed: 11/09/17 20:54> Physical Exam Vital Signs Reviewed: Yes Temperature: Afebrile Blood Pressure: Normal Pulse: Tachycardic Respiratory Rate: Normal Appearance: Positive for: Well-Appearing, Non-Toxic, Comfortable Pain Distress: None Mental Status: Positive for: Alert and Oriented X 3 - Systems Exam Head: Present: Atraumatic, Normocephalic Pupils: Present: PERRL Extroacular Muscles: Present: EOMI Conjunctiva: Present: Normal Mouth: Present: Moist Mucous Membranes Respiratory/Chest: Present: Clear to Auscultation, Good Air Exchange. No: Respiratory Distress, Accessory Muscle Use Cardiovascular: Present: Normal S1, S2, Peripheal Pulses Present, Tachycardic. No: Murmurs Abdomen: No: Tenderness, Distention, Peritoneal Signs Upper Extremity: Present: Normal Inspection, NORMAL PULSES. No: Cyanosis, Edema Lower Extremity: Present: Edema, Temperature Abnormalties. No: CALF TENDERNESS , NORMAL PULSES Neurological: Present: GCS=15, Speech Normal Psychiatric: Present: Alert, Oriented x 3, Normal Insight, Normal Concentration <BiggvazquezVladimir - Last Filed: 11/09/17 20:54> Vital Signs Temp Pulse Resp BP Pulse Ox 11/09/17 16:32 98.6 F 118 H 18 117/89 98 11/09/17 15:06 135 H 117/67 11/09/17 14:24 117/67 11/09/17 14:08 137 H 134/78 11/09/17 13:27 137 H 18 129/83 11/09/17 12:39 136 H 114/66 11/09/17 12:16 135 H 18 142/96 H 97 11/09/17 12:13 135 H 142/96 H 11/09/17 11:23 98.7 F 134 H 18 136/72 95 Medical Decision Making <Vladimir Nieto - Last Filed: 11/09/17 20:54> <Jeremias Ayoub - Last Filed: 11/09/17 22:16> ED Course and Treatment: 11/09/17 12:06 62M, presents with new onset rapid Afib. Patient currently has no complaints. Remains tachycardic. CBC, CMP, BNP, PT/PTT/INR Chest x-ray EKG Urinalysis Cardezem Bolus then Drip Reassess 11/09/17 12:32 BNP elevated Hgb 9.7 - Rectal exam performed, negative FOBT EKG - sinus tachycardia, 134bpm, RBBB 11/09/17 14:35 Contacted PMD who stated patient had labs drawn on 11/02/17 which also showed a low Hgb of 10.4. Will start anticoagulation. Patient remains stable, normotensive, satting at 95-99%. He continues to be tachycardic in the 130s. Contacted Dr. Chahal who recommends increasing the cardezem drip and adding atenolol. 11/09/17 16:09 Spoke with hospitalist. Patient will be admitted to telemetry. (Vladimir Nieto) 11/09/17 20:49 Patient seen with Resident: In agreement with resident note. Patient was seen and evaluated with resident, came up with plan and treatment together. Patient's history and presentation reviewed with Dr. Leighton Chahal, who had evaluated patient prior to arrival. Patient reportedly was at outpatient stress test when he was found to be in tachycardic rhythm consistent with new onset atrial fibrillation. Patient had no response PRIOR to arrival from administered Verapamil, Metoprolol and Digoxin. He was sent to ED by log handler for evaluation. On examination, he DENIES any acute symptoms. Does state feeling sob with exertion for several months. No chest pain. Blood pressure stable. On monitor patient is in rapid irregular heart rate/rhythm rate of 130-136, but DENIES symptoms with serial exams. Patient initiated on Cardizem bolus and drip with no change in heart rate. He remains asymptomatic. Dr. Leighton Chahal updated with patient's rhythm. With cardiology consultation, Cardizem bolus repeated, drip increased and Atenolol ordered. Rate slightly improved. I have communicated with cardiology that heart rate improved but persistently tachycardic. Patient noted to be anemic. I called PMD Dr. Tony Bella who reports blood work on 11/02 that also revealed anemia. He denies melena, denies rectal bleeding, denies hemotpysis. Rectal exam reviewed and patient with no melena, guaiac NEGATIVE. Dr. Chahal and PMD notified of anemia, log handler requests heparin administration for rapid atrial fibrillation. Patient updated with treatment plan. On re-exam, he denies any chest pain or shortness of breath, denies dizziness. (Jeremias Ayoub) - Lab Interpretations Lab Results: 11/09/17 11:20 11/09/17 11:20 Lab Results 11/09/17 11:20: PT 12.7 H, INR 1.10, APTT 28.8 11/09/17 11:20: WBC 7.5, RBC 3.95, Hgb 9.7 L D, Hct 32.9 L, MCV 83.3 D, MCH 24.6 L, MCHC 29.5 L, RDW 16.5 H, Plt Count 180, MPV 9.5, Gran % 81.5 H, Lymph % (Auto) 9.3 L, [place] % (Auto) 6.4 H, Eos % (Auto) 2.4, Baso % (Auto) 0.4, Gran # 6.07, Lymph # (Auto) 0.7 L, [place] # (Auto) 0.5, Eos # (Auto) 0.2, Baso # (Auto) 0.03 11/09/17 11:20: Sodium 141, Potassium 4.6, Chloride 105, Carbon Dioxide 25, Anion Gap 16, BUN 53 H, Creatinine 1.2, Est GFR ( Amer) > 60, Est GFR ( Non-Af Amer) > 60, Random Glucose 178 H, Calcium 8.9, Magnesium 2.3 H, Total Bilirubin 0.6, AST 31, ALT 35, Alkaline Phosphatase 77, Lactate Dehydrogenase 548, Total Creatine Kinase 108, Troponin I 0.04 D, NT-Pro-B Natriuret Pep 2820 H, Total Protein 8.0, Albumin 4.2, Globulin 3.8, Albumin/Globulin Ratio 1.1 - RAD Interpretation Radiology Orders: 11/09/17 11:38 CHEST PORTABLE [RAD] Stat - Medication Orders Current Medication Orders: Aspirin (Aspirin Chewable) 81 mg PO DAILY BRYSON Atenolol (Tenormin) 25 mg PO DAILY BRYSON Atorvastatin Calcium (Lipitor) 10 mg PO DIN BRYSON Heparin Sodium/Sodium Chloride (Heparin 92138 Units/250ml 1/2 Normal Saline) 25 ,000 units in 250 mls @ 18.942 mls/hr IV .[id number] PRN; Protocol; 12 UNITS/KG/HR PRN Reason: ADJUST RATE PER PROTOCOL Last Admin: 11/09/17 15:08 Dose: 12 units/kg/hr, 18.942 mls/hr eMAR Start Stop Document 11/09/17 15:08 (Rec: 11/09/17 15:09 [id number] Intravenous Solution Start Date 11/09/17 Start Time 15:09 Titration Intervention Document 11/09/17 15:08 (Rec: 11/09/17 15:09 [id number][facility] Titration Intake Waste Amount 0 Container Volume 250 Titration Dosing Titration Dose 12 IV Rate 18.942 Intake/Decrease Started diltiaZEM IVPB 100mg in NS (Cardizem 100mg In Ns) 100 mls @ 10 mls/hr IV .Q10H PRN; Protocol; 10 MG/HR PRN Reason: TITRATE PER MD ORDER Last Admin: 11/09/17 16:10 Dose: 10 mg/hr, 10 mls/hr eMAR Start Stop Document 11/09/17 16:10 (Rec: 11/09/17 16:10 [id number]) Intravenous Solution Start Date 11/09/17 Start Time 14:24 MAR Pulse Rate Document 11/09/17 16:10 (Rec: 11/09/17 16:10 [id number]) Pulse Rate Pulse Rate (60-90) 135 Titration Intervention Document 11/09/17 16:10 (Rec: 11/09/17 16:10 [id number]) Titration Intake Waste Amount 0 Container Volume 100 Titration Dosing Titration Dose 10 IV Rate 10 Intake/Decrease Started Sodium Chloride (Sodium Chloride 0.45%) 1,000 mls @ 100 mls/hr IV .Q10H BRYSON Metformin HCl (Glucophage) 500 mg PO BID BRYSON Discontinued Medications Atenolol (Tenormin) 25 mg PO DAILY STA Stop: 11/09/17 14:25 Last Admin: 11/09/17 15:06 Dose: 25 mg MAR Pulse and Blood Pressure Document 11/09/17 15:06 (Rec: 11/09/17 15:07 [id number]) Pulse Pulse Rate (60-90) 135 Blood Pressure Blood Pressure (100/60-150/90) 117/67 Diltiazem HCl (Cardizem) 15 mg IVP ONCE ONE Stop: 11/09/17 12:06 Last Admin: 11/09/17 12:13 Dose: 15 mg IVP Administration Document 11/09/17 12:13 (Rec: 11/09/17 12:14 [id number]) Charges for Administration # of IVP Administrations 1 MAR Pulse and Blood Pressure Document 11/09/17 12:13 (Rec: 11/09/17 12:14 [id number]) Pulse Pulse Rate (60-90) 135 Blood Pressure Blood Pressure (100/60-150/90) 142/96 Diltiazem HCl (Cardizem) 20 mg IVP ONCE ONE Stop: 11/09/17 13:31 Last Admin: 11/09/17 14:08 Dose: 20 mg IVP Administration Document 11/09/17 14:08 (Rec: 11/09/17 14:08 [id number]) Charges for Administration # of IVP Administrations 1 MAR Pulse and Blood Pressure Document 11/09/17 14:08 (Rec: 11/09/17 14:08 [id number]) Pulse Pulse Rate (60-90) 137 Blood Pressure Blood Pressure (100/60-150/90) 134/78 Heparin Sodium (Porcine) (Heparin) 4,000 units IV ONCE ONE PRN Reason: Protocol Stop: 11/09/17 14:12 Last Admin: 11/09/17 15:07 Dose: 4,000 units eMAR Start Stop Document 11/09/17 15:07 (Rec: 11/09/17 15:08 [id number]) Intravenous Solution Start Date 11/09/17 Start Time 15:07 diltiaZEM IVPB 100mg in NS (Cardizem 100mg In Ns) 100 mls @ 5 mls/hr IV .Q20H PRN; Protocol; 5 MG/HR PRN Reason: PER MD Last Admin: 11/09/17 12:14 Dose: 5 mls/hr eMAR Start Stop Document 11/09/17 12:14 (Rec: 11/09/17 12:15 [facility]-[id number]) Intravenous Solution Start Date 11/09/17 Start Time 12:15 Pneumococcal Polyvalent Vaccine (Pneumovax 23 Vaccine) 0.5 ml IM .ONCE ONE Stop: 11/09/17 17:08 <Vladimir Nieto - Last Filed: 11/09/17 20:54> - PA / ART HISTORY INSTRUCTOR / Resident Statement MD/DO has reviewed & agrees with the documentation as recorded. MD/DO has examined the patient and agrees with the treatment plan. - Scribe Statement The provider has reviewed the documentation as recorded by the Scribe <Jeremias Ayoub - Last Filed: 11/09/17 22:16> - Scribe Statement Caroline Juan All medical record entries made by the Scribe were at my direction and personally dictated by me. I have reviewed the chart and agree that the record accurately reflects my personal performance of the history, physical exam, medical decision making, and the department course for this patient. I have also personally directed, reviewed, and agree with the discharge instructions and disposition. (Jeremias Ayoub) Disposition/Present on Arrival - Present on Arrival Any Indicators Present on Arrival: No History of DVT/PE: No History of Uncontrolled Diabetes: No Urinary Catheter: No History of Decub. Ulcer: No History Surgical Site Infection Following: None - Disposition Have Diagnosis and Disposition been Completed?: Yes Disposition Time: 14:37 Patient Plan: Admission, Telemetry <Vladimir Nieto - Last Filed: 11/09/17 20:54> <Jeremias Ayoub - Last Filed: 11/09/17 22:16> - Disposition Diagnosis: New onset a-fib, Anemia Disposition: HOSPITALIZED Patient Problems: Current Active Problems Problem Status Onset New onset a-fib Acute Condition: STABLE
[2017-11-09] MEDS ORDERED: diltiaZEM IVPB 100mg in NS 100 ML IV PRN (12:05)
[2017-11-09 12:09] LABS: INR 1.1; PARTIAL THROMBOPLASTIN TIME 28.8 Seconds (25.1-36.5); PROTHROMBIN TIME 12.7 SECONDS (9.4-12.5)
[2017-11-09 12:10] LABS: ALB/GLOB RATIO 1.1 (1.1-1.8); ALBUMIN 4.2 g/dL (3.0-4.8); ALT/SGPT 35 U/L (7-56); AST/SGOT 31 U/L (17-59); BLOOD UREA NITROGEN 53 mg/dL (7-21); CALCIUM 8.9 mg/dL (8.4-10.5); GFR NON-AFRICAN AMERICAN > 60
[2017-11-09 12:20] LABS: B-TYPE NATRIURETIC PEPTIDE 2820 pg/mL (0-450); TROPONIN I 0.04 ng/mL
--- NOTE | 2017-11-09 14:09 | RAD ---
Date of service: 11/09/2017 HISTORY: new onset rapid atrial fibrillation COMPARISON: 11/15/2016 FINDINGS: LUNGS: No active pulmonary disease. PLEURA: No significant pleural effusion identified, no pneumothorax apparent. CARDIOVASCULAR: Moderate cardiomegaly OSSEOUS STRUCTURES: No significant abnormalities. VISUALIZED UPPER ABDOMEN: Normal. OTHER FINDINGS: None. IMPRESSION: No active disease.
--- NOTE | 2017-11-09 14:10 | CARD ---
APPROVED REPORT Date of service: 11/09/2017 EKG Measurement Heart [id number] <Conclusion> Suspect arm lead reversal, interpretation assumes no reversal Sinus tachycardia Right bundle branch block Anteroseptal infarct, age undetermined Abnormal ECG
[2017-11-09] MEDS: Heparin25000 units/250ml 1/2NS 25,000 UNITS/250 ML BAG IV PRN (15:08)
[2017-11-09 15:52] LABS: URINE BILIRUBIN NEGATIVE (NEGATIVE); URINE BLOOD NEGATIVE (NEGATIVE); URINE GLUCOSE (UA) >=1000 mg/dL (NEGATIVE); URINE LEUKOCYTE ESTERASE NEGATIVE Leu/uL (NEGATIVE); URINE PROTEIN TRACE mg/dL (<30 mg/dL)
[2017-11-09 15:53] LABS: URINE APPEARANCE SL CLOUDY (CLEAR); URINE COLOR YELLOW (YELLOW)
[2017-11-09 15:56] LABS: URINE BACTERIA FEW (NEG); URINE RBC 0 - 2 /hpf (0-2); URINE WBC 0 - 2 /hpf (0-6)
[2017-11-09] MEDS: diltiaZEM IVPB 100mg in NS 100 ML IV PRN ×2 (16:10→22:52)
[2017-11-09] MEDS ORDERED: Pneumococcal 23-Valent Vaccine IM ONE (17:07)
[2017-11-09] MEDS: Sodium Chloride 0.45% 1,000 ML IV SCH (20:00)
[2017-11-10 03:30] LABS: BASO # 0.04 K/mm3 (0.0-2.0); BASO % 0.6 % (0.0-3.0); EOS # 0.4 (0.0-0.7); EOS % 5.6 % (1.5-5.0); GRAN # 4.04 (1.4-6.5); GRAN % 64.6 % (50.0-68.0); HEMOGLOBIN 8.5 g/dL (14.0-18.0); LYMPH # 1.3 (1.2-3.4); LYMPH % 21.4 % (22.0-35.0); MEAN CELL VOLUME 83.3 fl (80.0-105.0); MEAN CORPUSCULAR HEMOGLOBIN 24.9 pg (25.0-35.0); MEAN CORPUSCULAR HGB CONC 29.9 g/dl (31.0-37.0); MEAN PLATELET VOLUME 8.9 fl (7.0-11.0); MONO # 0.5 (0.1-0.6); MONO % 7.8 % (1.0-6.0); RBC 3.41 10^6/uL (3.5-6.1); RED CELL DISTRIBUTION WIDTH 16.7 % (11.5-14.5); WHITE BLOOD COUNT 6.3 10^3/ul (4.5-11.0)
[2017-11-10 03:36] LABS: BLOOD UREA NITROGEN 44 mg/dL (7-21); CALCIUM 7.3 mg/dL (8.4-10.5); GFR NON-AFRICAN AMERICAN > 60; HDL CHOLESTEROL 24 mg/dL (29-60)
[2017-11-10 03:47] LABS: LDL CHOLESTEROL 45 mg/dL (0-129)
--- NOTE | 2017-11-10 04:17 | CON ---
DATE: 11/09/2017 LOCATION: The patient is in emergency room. REASON FOR CONSULTATION: Atrial flutter, atrial fibrillation, coronary artery disease, history of stent, hypertension, diabetes, hyperlipidemia, morbid obesity. HISTORY OF PRESENT ILLNESS: The patient is a 62-year-old male with known case of coronary artery disease, has sent inserted in 11/2016, known hypertension, diabetes, hyperlipidemia, morbid obesity, admitted with a history that he came for outpatient nuclear stress test today and when he was put on the monitor he was found to be in atrial flutter with rapid rate, ventricular rate around 136 to 140 per minute. The patient denies any chest pain, dizziness or palpitation or shortness of breath. The patient has no prior history of arrhythmia in the past. PAST MEDICAL HISTORY: As mentioned before patient had coronary artery disease, has a stent insertion in 11/2016, CHF, hypertension, diabetes, hyperlipidemia, morbid obesity. PAST SURGICAL HISTORY: The patient had cholecystectomy and also had surgery on the foot. PERSONAL HISTORY: Denies smoking, drinks socially. ALLERGIES: THE PATIENT IS NOT SURE WHETHER HE IS ALLERGIC TO SULFA DRUGS THAT IS QUESTIONABLE. FAMILY HISTORY: Mother with coronary artery disease. REVIEW OF SYSTEMS: All the systems are reviewed. Positives mentioned in the history, others were negative. MEDICATIONS AT HOME: The patient was taking Lasix 40 daily, potassium 20 daily, Plavix 75 daily, aspirin 81 daily, metformin 1000 b.i.d. and Lipitor 10 daily, Timolol. PHYSICAL EXAMINATION VITAL SIGNS: Blood pressure 124/80, respirations 18, pulse around 130 per minute, patient is afebrile. HEENT: Head is normocephalic. Eyes: Pupils normal. Conjunctivae slightly pale. NECK: JVP low. Carotids equal. THORAX: AP diameter normal. LUNGS: No rales. CARDIOVASCULAR: S1 and S2. ABDOMEN: Protuberant. No organomegaly. EXTREMITIES: No clubbing, no cyanosis. The patient has some changes of chronic venous stasis on the lower legs. LABORATORY DATA: Sodium 141, potassium 4.6, BUN 53, creatinine 1.2, calcium 8.9, random glucose 176. AST and ALT normal. Total protein and albumin normal. Troponin 0.04. WBC 7.5, hemoglobin 9.7, hematocrit 32, MCV 83.3, MCH 24.6, MCHC 29.5. Platelets 180. EKG showed atrial flutter, heart rate around 136 per minute, right bundle-branch block. DIAGNOSES: New onset of atrial flutter with rapid rate with coronary artery disease, history of stent insertion in 11/2016, hypertension, diabetes mellitus. The patient also with acute congestive heart failure in the past, has changes of chronic venous stasis, morbid obesity, hyperlipidemia, renal dysfunction, anemia. PLAN: Since patient has anemia, we will start heparin, so if he has any signs of GI bleeding, it can be reversed easily. We will give Cardizem bolus and Cardizem drip. We will continue aspirin 81 mg daily, we will hold off Plavix form because patient is going on heparin and also he is almost 11 months when we put the stent for coronary artery disease. The patient had stress test today, we will follow the report, we will check also TSH and lipid profile and SMA-7, magnesium, phosphorus in the morning. The patient's PT, PTT on admission were normal. IV Fluids, Labs in Morning. We will follow with you. Inez Chahal MD CHRISTINE
[2017-11-10] MEDS: Heparin25000 units/250ml 1/2NS 25,000 UNITS/250 ML BAG IV PRN (04:28)
--- NOTE | 2017-11-10 06:22 | HP ---
ADMITTING HISTORY AND PHYSICAL CHIEF COMPLAINT: New-onset atrial fibrillation in an asymptomatic 62-year-old male. HISTORY OF PRESENT ILLNESS: This is a 62-year-old man with a history of coronary artery disease, stents placed 1 year ago, who was undergoing routine followup evaluation by his trapeze artist, Dr. Chahal. He had an echocardiogram with exercise thallium stress test. When he presented for his scans, was found to be tachycardic at 130 to 140 beats per minute and new-onset atrial fibrillation. The patient has no history of atrial fibrillation. Only drinks one cup of coffee a day, does not smoke, does not take diet pills, decongestants, antihistamines, stimulants, or other medications. There is no history of thyroid abnormalities. PAST MEDICAL HISTORY: Significant for hypertension and diabetes, morbid obesity, cardiac catheterization and stents placed in 11/2016, diabetic foot ulcer, infections with venous stasis and venous insufficiency of lower extremities. There is no history of tuberculosis, asthma, seizures, gout, COPD, TIA, or CVA. MEDICATIONS: He is on multiple medications with the diagnoses as above. Please see the medication list. ALLERGIES: SULFA THAT IS REPORTED AN ALLERGY WITH UNKNOWN REACTION. SOCIAL HISTORY: Tobacco, does not smoke, although there is a questionable history in the past. Alcohol, no. Coffee, one cup per day. Social, he is with grandchildren. Works in [employer]. His trapeze artist is Dr. Chahal. 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 Mckay, from his leg wounds in 2013. His last reported ejection fraction was approximately 17%. MEDICATIONS: Included aspirin, potassium, Plavix, Lotrel 10/20, Lasix 40, metformin 500 b.i.d., Prandin 2 mg, Prilosec, metoprolol 25 b.i.d., Farxiga 10 mg daily. PHYSICAL EXAMINATION: GENERAL: The patient was seen in room 268, bed 1, this Wednesday evening with his sitting at the bedside. He is sitting up, awake, alert, clear, no acute distress, totally asymptomatic. HEENT: Head and neck is unremarkable. Conjunctivae are pink. Mucous membranes are moist. NECK: Supple without masses. No thyroid masses. No bruits. No palpable masses. LUNGS: Showed good aeration right and left. HEART: Irregular, but not tachycardic. ABDOMEN: Massively obese. EXTREMITIES: Showed trace to +1 chronic edema of obesity. IMPRESSION: 1. New-onset atrial fibrillation. 2. Diabetes. 3. Hypertension. 4. Coronary artery disease. 5. Low ejection fraction of 17%. PLAN: The patient is admitted to Telemetry floor after receiving doses of IV Cardizem. He is currently on heparin drip. I explained to the patient and his about the electrical malfunction abnormality of atrial fibrillation and the need for anticoagulants in the future. He has had an echo and a stress test done today, so we will await the results of those tests. We will use medications to control his weight as he was already on the beta-ba. We will discuss that with his trapeze artist, Dr. Chahal. Of course, again the importance of diet, exercises, and weight reduction has been explained to the patient as his estimated weight is in a 350-pound range. Jose Angel Bella MD
[2017-11-10] MEDS ORDERED: diltiaZEM IVPB 100mg in NS 100 ML IV PRN (06:23)
--- NOTE | 2017-11-10 08:03 | CP.PCM.PN ---
Subjective - Date & Time of Evaluation Date of Evaluation: 11/10/17 Time of Evaluation: 06:20 - Subjective Subjective: Awake, sitting at side of bed, no distress Reason for consultation and follow up: Cardiac evaluation of new onset atrial fibrillation Seen and examined by me and Dr. Guillen Objective - Vital Signs/Intake and Output Vital Signs (last 24 hours): Temp Pulse Resp BP Pulse Ox 97.7 F 65 19 108/59 L 94 L 11/10/17 05:59 11/10/17 05:59 11/10/17 05:59 11/10/17 05:59 11/10/17 05:59 Intake and Output: 11/10/17 11/10/17 06:59 18:59 Intake Total 2009 Output Total 600 Balance 1410 - Medications Medications: Current Medications Aspirin (Aspirin Chewable) 81 mg PO DAILY [facility] Atenolol (Tenormin) 25 mg PO DAILY [facility] Atorvastatin Calcium (Lipitor) 10 mg PO DIN [facility] Diltiazem HCl (Cardizem) 60 mg PO TID [facility] Heparin Sodium/Sodium Chloride (Heparin 39825 Units/250ml 1/2 Normal Saline) 25 ,000 units in 250 mls @ 18.942 mls/hr IV .[id number] PRN; Protocol; 12 UNITS/KG/HR PRN Reason: ADJUST RATE PER PROTOCOL Last Admin: 11/10/17 04:28 Dose: 12 units/kg/hr, 18.942 mls/hr Sodium Chloride (Sodium Chloride 0.45%) 1,000 mls @ 100 mls/hr IV .Q10H [facility] Last Admin: 11/09/17 20:00 Dose: 100 mls/hr Metformin HCl (Glucophage) 500 mg PO BID [facility] - Labs Labs: 11/10/17 03:15 11/10/17 03:15 PT 12.7 SECONDS (9.4-12.5) H 11/09/17 11:20 INR 1.10 11/09/17 11:20 APTT 67.3 Seconds (25.1-36.5) H 11/10/17 03:15 - Constitutional Appears: No Acute Distress - Eye Exam Eye Exam: Normal appearance - ENT Exam ENT Exam: Mucous Membranes Moist - Respiratory Exam Respiratory Exam: Decreased Breath Sounds, NORMAL BREATHING PATTERN - Cardiovascular Exam Cardiovascular Exam: +S1, +S2 Additional comments: Aflutter- 60's 2 seconds pause on telemetry - GI/Abdominal Exam GI & Abdominal Exam: Soft, Normal Bowel Sounds - Extremities Exam Additional comments: 2+ edema - Neurological Exam Neurological Exam: Alert, Awake, Oriented x3 - Psychiatric Exam Psychiatric exam: Normal Affect - Skin Skin Exam: Dry, Warm Assessment and Plan - Assessment and Plan (Free Text) Assessment: 62 year old male morbidly obese who came in for elective stress test and found to be in rapid atrial fibrillation. He was sent to the ER and started on Cardizem drip with bolus.He was also given Digoxin, verapamil, and beta ba which did not bring the heart rate down. History of coronary artery disease with drug eluding stent on the RCA and LAD, diabetes, hypertension, and hyperlipidemia. Admitted to telemetry on Cardizem drip. He is going for his second part of stress test today. Plan: Had 2.6 seconds pause on telemetry, Aflutter at 60/min On cardizem drip at 10 mg /hr, decreased to 5 mg/hr Will discontinue drip and switch to oral cardizem Stable blood pressure Patient willl go for second part of Stress test today No distress Continue current medications Continue current treatment Will follow up Plan and treatment discussed with Dr. Guillen
[2017-11-10] MEDS: Sodium Chloride 0.45% 1,000 ML IV SCH ×2 (08:07→16:57)
[2017-11-10] MEDS ORDERED: Potassium Chloride 20 mEq ER Tab PO ONE (09:50)
--- NOTE | 2017-11-10 10:37 | PN ---
DATE: 11/10/2017 LOCATION: The patient in room 268, bed 1. SUBJECTIVE: As mentioned in today's progress note already written by Nina Mcnally, the patient was admitted with rapid atrial flutter yesterday. The patient's heart rate has slowed down now and the patient is being switched to p.o. Cardizem, but on the other hand, the patient's BUN was elevated on admission and hemoglobin and hematocrit were 9.7 and 32.9. BUN and creatinine on admission were 53 and 1.2. So the patient was also started on hydration with 100 mL half normal saline. Today's BUN 44, creatinine 1.2. Hemoglobin 8.5, hematocrit 28.4. MCH is also low. MCHC is also low. The patient has a history of CHF and LV dysfunction. The patient was put on heparin because of the consideration that he may have GI bleeding for cause of his anemia, that is why he was not put on Lovenox or Eliquis. So the patient's, with hydration, hemoglobin and hematocrit are falling further. He needs GI workup for rule out GI bleeding for this anemia. So I discussed with Dr. Juliano Bella. He agrees with that and a GI consultation is going to be requested. Till that time, we will continue heparin while GI workup is going on. He will be going for the second part of his stress test today because of Obesity his Stress Test is 2 days protocol. Inez Chahal MD CHRISTINE
--- NOTE | 2017-11-10 11:58 | CP.PCM.CON ---
<Yuni Estes - Last Filed: 11/10/17 11:59> History of Present Illness - History of Present Illness History of Present Illness: Seen and examined at bedside, chart reviewed. Request for consult is for Anemia. HPI: This is a 62 y.o patient with PMH of of CAD s/p stent on Plavix and Aspirin was [facility], s/p thallium stress foudn to be tachycardic 130-140 with new onset Atrial Fibrillation, patient denies SOB or CP. On admission hgb was 9.7, today noted to drop at 8.5. Patient has h/o gastric ulcer on last EGD in 2014. He is currently on baby Aspirin and Plavix. He also has chronic back pain and takes Advil at least 2-3 times a week. He is also on Flexeril prn and recently given a prescription for Mobic which he has not started. He denies dyspepsia, N/V or abdominal pain. He in on Prilosec 20 mg for many years now. No melena or BRBPR. He did have stool guiac done yesterday, negative. No c/o anorexia or weight loss. No c/o of overt GI bleeding. Never had colonoscopy. He is currently on Heparin drip per protocol. PMH: HTN, morbid obesity,DM,diabetic foot ulcer, venous stasis of lower extremities, CBD stone PSH: cholecystectomy, cardiac catherization w/ stent (11/2016), EGD 08/2014: gastric ulcer, gastric BX: no IM/HP, EUS/ERCP 06/2013: CBD stone extraction w/ spincterotomy Social HX: denies smoking, etoh, illicit drugs Allergies: Sulfa Family HX: noncontributory at this time MEDS: reviewed as per MAR: at home on PLAVIX/Aspirin ROS: systems reviewed , w/ positive findings, see HPI Past Patient History - Infectious Disease Hx of Infectious Diseases: None - Tetanus Immunizations Tetanus Immunization: Unknown - Past Social History Smoking Status: Never Smoked - CARDIAC Hx Congestive Heart Failure: Yes Hx Hypertension: Yes Hx Pacemaker: No - PULMONARY Hx Respiratory Disorders: No - NEUROLOGICAL Hx Paralysis: No - HEENT Hx HEENT Problems: Yes Other/Comment: wear glasses - RENAL Hx Chronic Kidney Disease: Yes Hx Kidney Stones: Yes - ENDOCRINE/METABOLIC Hx Diabetes Mellitus Type 2: Yes - HEMATOLOGICAL/ONCOLOGICAL Hx Blood Transfusions: No Hx Blood Transfusion Reaction: No - INTEGUMENTARY Hx Dermatological Problems: No - MUSCULOSKELETAL/RHEUMATOLOGICAL Hx Musculoskeletal Disorders: Yes - GASTROINTESTINAL Hx Gastrointestinal Disorders: Yes Hx Gall Bladder Disease: Yes (cholecystectomy) Hx Gastroesophageal Reflux: Yes - GENITOURINARY/GYNECOLOGICAL Hx Genitourinary Disorders: No - PSYCHIATRIC Hx Emotional Abuse: No Hx Physical Abuse: No Hx Substance Use: No - SURGICAL HISTORY Hx Cardiac Catheterization: Yes Hx Cholecystectomy: Yes - ANESTHESIA Hx Anesthesia Reactions: No Hx Malignant Hyperthermia: No Meds Allergies/Adverse Reactions: Allergies Allergy/AdvReac Type Severity Reaction Status Date / Time Sulfa (Sulfonamide Allergy RASH Verified 11/09/17 11:27 Antibiotics) - Medications Medications: Current Medications Aspirin (Aspirin Chewable) 81 mg PO DAILY [facility] Last Admin: 11/10/17 10:31 Dose: 81 mg Atenolol (Tenormin) 25 mg PO DAILY [facility] Last Admin: 11/10/17 10:33 Dose: 25 mg Atorvastatin Calcium (Lipitor) 10 mg PO DIN [facility] Diltiazem HCl (Cardizem) 60 mg PO TID [facility] Last Admin: 11/10/17 10:32 Dose: 60 mg Heparin Sodium/Sodium Chloride (Heparin 60771 Units/250ml 1/2 Normal Saline) 25,000 units in 250 mls @ 18.942 mls/hr IV .[id number] PRN; Protocol; 12 UNITS/KG/HR PRN Reason: ADJUST RATE PER PROTOCOL Last Admin: 11/10/17 04:28 Dose: 12 units/kg/hr, 18.942 mls/hr Sodium Chloride (Sodium Chloride 0.45%) 1,000 mls @ 100 mls/hr IV .Q10H [facility] Last Admin: 11/10/17 08:07 Dose: 100 mls/hr Metformin HCl (Glucophage) 500 mg PO BID [facility] Last Admin: 11/10/17 10:32 Dose: 500 mg Physical Exam - Constitutional Appears: No Acute Distress - Head Exam Head Exam: NORMOCEPHALIC - Eye Exam Eye Exam: Normal appearance. absent: Scleral icterus - Neck Exam Neck exam: Positive for: Normal Inspection - Respiratory Exam Respiratory Exam: Clear to Auscultation Bilateral, NORMAL BREATHING PATTERN. absent: Respiratory Distress - Cardiovascular Exam Cardiovascular Exam: +S1, +S2 - GI/Abdominal Exam GI & Abdominal Exam: Normal Bowel Sounds (obese), Soft. absent: Guarding, Or ganomegaly, Rebound, Tenderness - Extremities Exam Extremities exam: Positive for: pedal edema (venous stasis). Negative for: calf tenderness - Neurological Exam Neurological exam: Alert, Oriented x3 - Skin Skin Exam: Dry, Warm Results - Vital Signs Recent Vital Signs: Last Vital Signs Temp 97.7 F 11/10/17 05:59 Pulse 65 11/10/17 05:59 Resp 19 11/10/17 05:59 BP 108/59 L 11/10/17 05:59 Pulse Ox 94 L 11/10/17 05:59 - Labs Result Diagrams: 11/10/17 03:15 11/10/17 03:15 Labs: Laboratory Results - last 24 hr 11/09/17 11/09/17 11/10/17 15:30 21:32 03:15 WBC 6.3 RBC 3.41 L Hgb 8.5 L Hct 28.4 L MCV 83.3 MCH 24.9 L MCHC 29.9 L RDW 16.7 H Plt Count 146 MPV 8.9 Gran % 64.6 Lymph % (Auto) 21.4 L Preble % (Auto) 7.8 H Eos % (Auto) 5.6 H Baso % (Auto) 0.6 Gran # 4.04 Lymph # (Auto) 1.3 Preble # (Auto) 0.5 Eos # (Auto) 0.4 Baso # (Auto) 0.04 APTT 50.5 H Sodium Potassium Chloride Carbon Dioxide Anion Gap BUN Creatinine Est GFR ( Amer) Est GFR (Non-Af Amer) POC Glucose (mg/dL) Random Glucose Calcium Phosphorus Magnesium Triglycerides Cholesterol LDL Cholesterol Direct HDL Cholesterol Urine Color Yellow Urine Appearance Sl cloudy Urine pH 6.0 Ur Specific [place] 1.025 Urine Protein Trace H Urine Glucose (UA) >=1000 Urine Ketones Negative Urine Blood Negative Urine Nitrate Negative Urine Bilirubin Negative Urine Urobilinogen 1.0 H Ur Leukocyte Esterase Negative Urine RBC 0 - 2 Urine WBC 0 - 2 Ur Epithelial Cells None Urine Bacteria Few Stool Occult Blood 11/10/17 11/10/17 11/10/17 03:15 03:15 03:36 WBC RBC Hgb Hct MCV MCH MCHC RDW Plt Count MPV Gran % Lymph % (Auto) Preble % (Auto) Eos % (Auto) Baso % (Auto) Gran # Lymph # (Auto) Preble # (Auto) Eos # (Auto) Baso # (Auto) APTT 67.3 H Sodium 133 Potassium 3.7 Chloride 103 Carbon Dioxide 21 Anion Gap 13 BUN 44 H Creatinine 1.2 Est GFR ( Amer) > 60 Est GFR (Non-Af Amer) > 60 POC Glucose (mg/dL) Random Glucose 101 Calcium 7.3 L Phosphorus 3.8 Magnesium 2.0 Triglycerides 100 Cholesterol 96 L LDL Cholesterol Direct 45 HDL Cholesterol 24 L Urine Color Urine Appearance Urine pH Ur Specific [place] Urine Protein Urine Glucose (UA) Urine Ketones Urine Blood Urine Nitrate Urine Bilirubin Urine Urobilinogen Ur Leukocyte Esterase Urine RBC Urine WBC Ur Epithelial Cells Urine Bacteria Stool Occult Blood Negative 11/10/17 07:54 WBC RBC Hgb Hct MCV MCH MCHC RDW Plt Count MPV Gran % Lymph % (Auto) Preble % (Auto) Eos % (Auto) Baso % (Auto) Gran # Lymph # (Auto) Preble # (Auto) Eos # (Auto) Baso # (Auto) APTT Sodium Potassium Chloride Carbon Dioxide Anion Gap BUN Creatinine Est GFR ( Amer) Est GFR (Non-Af Amer) POC Glucose (mg/dL) 154 H Random Glucose Calcium Phosphorus Magnesium Triglycerides Cholesterol LDL Cholesterol Direct HDL Cholesterol Urine Color Urine Appearance Urine pH Ur Specific [place] Urine Protein Urine Glucose (UA) Urine Ketones Urine Blood Urine Nitrate Urine Bilirubin Urine Urobilinogen Ur Leukocyte Esterase Urine RBC Urine WBC Ur Epithelial Cells Urine Bacteria Stool Occult Blood Assessment & Plan - Assessment and Plan (Free Text) Assessment: ASSESSMENT: New Onset Atrial Fibrillation Anemia, r/o GIB, PUD h/o Gastric Ulcer Chronic Back Pain, NSAID use Morbid Obesity DM HTN Poor Ejection fraction 17% PLAN: monitor H/H for overt GIB obtain iron studies, B12, folate start Protonix 40 mg IVP on Heparin drip per protocol Cardiology FU Patient would benefit from EGD in view of h/o gastric ulcer and NSAID use, consider when patient is optimal. Also discuss w/ patient he would benefit from colonoscopy. Thank you for this consult and for allowing us to participate in your patient care, further recommendation based upon clinical course. Seen and discussed w/ Dr. Muro. <Sarah Muro V - Last Filed: 11/11/17 00:04> Meds - Medications Medications: Current Medications Aspirin (Aspirin Chewable) 81 mg PO DAILY [facility] Last Admin: 11/10/17 10:31 Dose: 81 mg Atenolol (Tenormin) 25 mg PO DAILY [facility] Last Admin: 11/10/17 10:33 Dose: 25 mg Atorvastatin Calcium (Lipitor) 10 mg PO DIN [facility] Last Admin: 11/10/17 17:22 Dose: 10 mg Diltiazem HCl (Cardizem) 60 mg PO TID [facility] Last Admin: 11/10/17 17:22 Dose: 60 mg Heparin Sodium/Sodium Chloride (Heparin 65850 Units/250ml 1/2 Normal Saline) 25,000 units in 250 mls @ 18.942 mls/hr IV .[id number] PRN; Protocol; 12 UNITS/KG/HR PRN Reason: ADJUST RATE PER PROTOCOL Last Admin: 11/10/17 04:28 Dose: 12 units/kg/hr, 18.942 mls/hr Sodium Chloride (Sodium Chloride 0.45%) 1,000 mls @ 100 mls/hr IV .Q10H [facility] Last Admin: 11/10/17 16:57 Dose: 100 mls/hr Metformin HCl (Glucophage) 500 mg PO BID [facility] Last Admin: 11/10/17 17:22 Dose: 500 mg Pantoprazole Sodium (Protonix Inj) 40 mg IVP DAILY [facility] Last Admin: 11/10/17 13:41 Dose: 40 mg Results - Vital Signs Recent Vital Signs: Last Vital Signs Temp 98.6 F 11/10/17 17:51 Pulse 67 11/10/17 17:51 Resp 20 11/10/17 17:51 BP 129/73 11/10/17 17:51 Pulse Ox 95 11/10/17 14:22 - Labs Result Diagrams: 11/10/17 03:15 11/10/17 03:15 Labs: Laboratory Results - last 24 hr 11/10/17 11/10/17 11/10/17 03:15 03:15 03:15 WBC 6.3 RBC 3.41 L Hgb 8.5 L Hct 28.4 L MCV 83.3 MCH 24.9 L MCHC 29.9 L RDW 16.7 H Plt Count 146 MPV 8.9 Gran % 64.6 Lymph % (Auto) 21.4 L Pre[place] % (Auto) 7.8 H Eos % (Auto) 5.6 H Baso % (Auto) 0.6 Gran # 4.04 Lymph # (Auto) 1.3 Preble # (Auto) 0.5 Eos # (Auto) 0.4 Baso # (Auto) 0.04 APTT 67.3 H Sodium 133 Potassium 3.7 Chloride 103 Carbon Dioxide 21 Anion Gap 13 BUN 44 H Creatinine 1.2 Est GFR ( Amer) > 60 Est GFR (Non-Af Amer) > 60 POC Glucose (mg/dL) Random Glucose 101 Calcium 7.3 L Phosphorus 3.8 Magnesium 2.0 Iron TIBC % Saturation Ferritin Triglycerides 100 Cholesterol 96 L LDL Cholesterol Direct 45 HDL Cholesterol 24 L Vitamin B12 Folate TSH 3rd Generation Stool Occult Blood 11/10/17 11/10/17 11/10/17 03:36 07:54 11:36 WBC RBC Hgb Hct MCV MCH MCHC RDW Plt Count MPV Gran % Lymph % (Auto) Pre[place] % (Auto) Eos % (Auto) Baso % (Auto) Gran # Lymph # (Auto) Pre[place] # (Auto) Eos # (Auto) Baso # (Auto) APTT Sodium Potassium Chloride Carbon Dioxide Anion Gap BUN Creatinine Est GFR ( Amer) Est GFR (Non-Af Amer) POC Glucose (mg/dL) 154 H 146 H Random Glucose Calcium Phosphorus Magnesium Iron TIBC % Saturation Ferritin Triglycerides Cholesterol LDL Cholesterol Direct HDL Cholesterol Vitamin B12 Folate TSH 3rd Generation Stool Occult Blood Negative 11/10/17 11/10/17 11/10/17 13:00 13:00 13:00 WBC RBC Hgb Hct MCV MCH MCHC RDW Plt Count MPV Gran % Lymph % (Auto) [place] % (Auto) Eos % (Auto) Baso % (Auto) Gran # Lymph # (Auto) Pre[place] # (Auto) Eos # (Auto) Baso # (Auto) APTT Sodium Potassium Chloride Carbon Dioxide Anion Gap BUN Creatinine Est GFR ( Amer) Est GFR (Non-Af Amer) POC Glucose (mg/dL) Random Glucose Calcium Phosphorus Magnesium Iron 44 L TIBC 442 % Saturation 10 L Ferritin 9.5 Triglycerides Cholesterol LDL Cholesterol Direct HDL Cholesterol Vitamin B12 440 Folate 18.1 TSH 3rd Generation 1.15 Stool Occult Blood 11/10/17 11/10/17 16:42 21:22 WBC RBC Hgb Hct MCV MCH MCHC RDW Plt Count MPV Gran % Lymph % (Auto) [place] % (Auto) Eos % (Auto) Baso % (Auto) Gran # Lymph # (Auto) Pre[place] # (Auto) Eos # (Auto) Baso # (Auto) APTT Sodium Potassium Chloride Carbon Dioxide Anion Gap BUN Creatinine Est GFR ( Amer) Est GFR (Non-Af Amer) POC Glucose (mg/dL) 141 H 140 H Random Glucose Calcium Phosphorus Magnesium Iron TIBC % Saturation Ferritin Triglycerides Cholesterol LDL Cholesterol Direct HDL Cholesterol Vitamin B12 Folate TSH 3rd Generation Stool Occult Blood Attending/Attestation - Attestation I have personally seen and examined this patient.: Yes I have fully participated in the care of the patient.: Yes I have reviewed all pertinent clinical information: Yes Notes (Text): This is an addendum to GI cconsult report dictated by Yuni Estes APN.The patient was seen and examined earlier. Medical records, lab studies, imagings were reviewed. Last 24 hours events reviewed. Agreed with the above treatment plan as outlined in Yuni Estes APN's notes with the addition of the following This patient was found to be tachycardic while at stress test Patient was found to have A.fib Patient was found to be anemic with Hemoglobin of 8.5 Patient denied wendi Patient had been on NSAID for chronic back pain Patient also has been on aspirin and plavix History of PUD, gastric ulcer Last EGD 2014 never has colonoscopy History of CBD stone status post ERCP in 2013 Continue PPI Will follow up hemoglobin and hematocrit Follow up EGD and colon in view of significant anemia requiring anti-platelet therapy/anticoagulation Would request CT on abdomen and pelvis with PO contrast 11/10/17 23:55
[2017-11-10 14:18] LABS: IRON 44 ug/dL (45-180)
[2017-11-10 14:28] LABS: % IRON SATURATION 10 % (20-55); TOTAL IRON BINDING CAPACITY 442 ug/dL (261-462)
[2017-11-10 16:14] LABS: FERRITIN 9.5 ng/mL
[2017-11-10 16:45] LABS: FOLATE 18.1 ng/mL
[2017-11-11] MEDS: Pantoprazole 40 mg EC Tab PO SCH (06:44)
[2017-11-11] MEDS: Heparin25000 units/250ml 1/2NS 25,000 UNITS/250 ML BAG IV PRN ×2 (06:44→20:19)
[2017-11-11 07:21] LABS: HEMOGLOBIN 9.1 g/dL (14.0-18.0); MEAN CELL VOLUME 82.8 fl (80.0-105.0); MEAN PLATELET VOLUME 9.9 fl (7.0-11.0); RBC 3.79 10^6/uL (3.5-6.1); RED CELL DISTRIBUTION WIDTH 16.7 % (11.5-14.5); WHITE BLOOD COUNT 7.2 10^3/ul (4.5-11.0)
[2017-11-11 07:52] LABS: ALB/GLOB RATIO 1.1 (1.1-1.8); ALBUMIN 3.8 g/dL (3.0-4.8); ALT/SGPT 29 U/L (7-56); AST/SGOT 25 U/L (17-59); BLOOD UREA NITROGEN 39 mg/dL (7-21); CALCIUM 8.6 mg/dL (8.4-10.5); GFR NON-AFRICAN AMERICAN > 60
[2017-11-11] MEDS ORDERED: Barium Sulfate Susp 2.1% w/v, 2.0% w/w 450 mL Bottle PO ONE (07:57)
--- NOTE | 2017-11-11 08:01 | CP.PCM.PN ---
<Sim Da Silva - Last Filed: 11/11/17 12:14> Subjective - Date & Time of Evaluation Date of Evaluation: 11/11/17 Time of Evaluation: 07:57 - Subjective Subjective: GI Progress Note for Dr. Muro's Service- Walter, PGY2 Patient seen and assessed at bedside. No acute events overnight noted. Patient currently denies any fevers, chills, chest pain, abdominal pain, N/V/D/C, changes in urine output or any skin changes. Objective - Vital Signs/Intake and Output Vital Signs (last 24 hours): Temp Pulse Resp BP Pulse Ox 98.2 F 129 H 20 128/78 96 11/11/17 06:00 11/11/17 06:00 11/11/17 06:00 11/11/17 06:00 11/11/17 06:00 Intake and Output: 11/11/17 11/11/17 06:59 18:59 Intake Total 1727 Output Total 0 Balance 1727 - Medications Medications: Current Medications Aspirin (Aspirin Chewable) 81 mg PO DAILY [facility] Last Admin: 11/10/17 10:31 Dose: 81 mg Atenolol (Tenormin) 25 mg PO DAILY [facility] Last Admin: 11/10/17 10:33 Dose: 25 mg Atorvastatin Calcium (Lipitor) 10 mg PO DIN [facility] Last Admin: 11/10/17 17:22 Dose: 10 mg Diltiazem HCl (Cardizem) 60 mg PO TID [facility] Last Admin: 11/10/17 17:22 Dose: 60 mg Heparin Sodium/Sodium Chloride (Heparin 23205 Units/250ml 1/2 Normal Saline) 25 ,000 units in 250 mls @ 18.942 mls/hr IV .[id number] PRN; Protocol; 12 UNITS/KG/HR PRN Reason: ADJUST RATE PER PROTOCOL Last Admin: 11/11/17 06:44 Dose: 12 units/kg/hr, 18.942 mls/hr Sodium Chloride (Sodium Chloride 0.45%) 1,000 mls @ 100 mls/hr IV .Q10H [facility] Last Admin: 11/10/17 16:57 Dose: 100 mls/hr Metformin HCl (Glucophage) 500 mg PO BID [facility] Last Admin: 11/10/17 17:22 Dose: 500 mg Pantoprazole Sodium (Protonix Ec Tab) 40 mg PO 0600 [facility] Last Admin: 11/11/17 06:44 Dose: 40 mg - Labs Labs: 11/11/17 06:30 11/11/17 06:30 PT 12.7 SECONDS (9.4-12.5) H 11/09/17 11:20 INR 1.10 11/09/17 11:20 APTT 76.7 Seconds (25.1-36.5) H 11/11/17 06:30 - Constitutional Appears: Non-toxic, No Acute Distress - Head Exam Head Exam: ATRAUMATIC, NORMOCEPHALIC - Eye Exam Eye Exam: EOMI - Neck Exam Neck Exam: Full ROM - Respiratory Exam Respiratory Exam: NORMAL BREATHING PATTERN. absent: Accessory Muscle Use, Respiratory Distress - Cardiovascular Exam Cardiovascular Exam: +S1, +S2 - GI/Abdominal Exam GI & Abdominal Exam: Soft, Normal Bowel Sounds. absent: Bruit, Distended, Firm , Guarding, Rigid, Tenderness, Diminished Bowel Sounds, Hernia, Hyperactive Bowel Sounds, Hypoactive Bowel Sounds, Organomegaly, Pulsatile Mass, Rebound, Mass - Rectal Exam Rectal Exam: Deferred - Extremities Exam Extremities Exam: absent: Calf Tenderness - Neurological Exam Neurological Exam: Alert, Awake - Psychiatric Exam Psychiatric exam: Normal Affect, Normal Mood - Skin Skin Exam: Dry, Intact, Normal Color, Warm Assessment and Plan - Assessment and Plan (Free Text) Assessment: 62 year old male with a past medical history significant for HTN, morbid obesity , DM2 ,diabetic foot ulcer, venous stasis of lower extremities, CBD stone, PUD, who presents for new onset atrial fibrillation. GI was consulted for acute drop in hemoglobin. FOBT negative. Patient is currently on a heparin drip and without GI complaints such as abdominal pain, N/V/D/C, hematemesis, melena or hematochezia. Plan: -CT Abdomen/Pelvis with PO contract pending -H/H trending upwards at 9.1/31.4 -Continue to monitor with serial CBC's -Heart Healthy Moderate Carbohydrate Consistent Diet -Continue daily PPI GI Disposition: Patient will benefit from EGD/Colonoscopy. Will need anesthesia to evaluate patient prior to scheduling. Patient seen and case discussed with attending, Dr. Muro. <Sarah Muro V - Last Filed: 11/11/17 22:17> Objective - Vital Signs/Intake and Output Vital Signs (last 24 hours): Temp Pulse Resp BP Pulse Ox 97.7 F 72 18 111/81 96 11/11/17 18:00 11/11/17 22:00 11/11/17 18:00 11/11/17 22:00 11/11/17 06:00 Intake and Output: 11/11/1718 18:59 06:59 Intake Total 920 250 Output Total 2300 Balance -1380 250 - Medications Medications: Current Medications Aspirin (Aspirin Chewable) 81 mg PO DAILY [facility] Last Admin: 11/11/17 09:12 Dose: 81 mg Atorvastatin Calcium (Lipitor) 10 mg PO DIN [facility] Last Admin: 11/11/17 18:01 Dose: 10 mg Carvedilol (Coreg) 3.125 mg PO BID [facility] Last Admin: 11/11/17 18:01 Dose: 3.125 mg Digoxin (Lanoxin) 0.25 mg PO 1400 [facility] Diltiazem HCl (Cardizem) 60 mg PO QID [facility] Last Admin: 11/11/17 22:00 Dose: 60 mg Furosemide (Lasix) 40 mg PO DAILY [facility] Heparin Sodium/Sodium Chloride (Heparin 00622 Units/250ml 1/2 Normal Saline) 25 ,000 units in 250 mls @ 18.942 mls/hr IV .[id number] PRN; Protocol; 12 UNITS/KG/HR PRN Reason: ADJUST RATE PER PROTOCOL Last Admin: 11/11/17 20:19 Dose: 12 units/kg/hr, 18.942 mls/hr Lisinopril (Zestril) 2.5 mg PO DAILY [facility] Metformin HCl (Glucophage) 500 mg PO BID [facility] Last Admin: 11/11/17 18:01 Dose: 500 mg Pantoprazole Sodium (Protonix Ec Tab) 40 mg PO 0600 [facility] Last Admin: 11/11/17 06:44 Dose: 40 mg - Labs Labs: 11/11/17 06:30 11/11/17 06:30 PT 12.7 SECONDS (9.4-12.5) H 11/09/17 11:20 INR 1.10 11/09/17 11:20 APTT 76.7 Seconds (25.1-36.5) H 11/11/17 06:30 Attending/Attestation - Attestation I have personally seen and examined this patient.: Yes I have fully participated in the care of the patient.: Yes I have reviewed all pertinent clinical information, including history, physical exam and plan: Yes Notes (Text): This is an addendum to GI followup report dictated by the Online [employer]. The patient was seen and evaluated earlier. Medical records, lab studies, imagings were reviewed. Last 24 hours events reviewed. Agreed with the above treatment plan as outlined in [employer] 's notes with the addition of the following This patient denies any bleeding per rectum or wendi Patient did have drop in hemoglobin On heparin drip CT scan was reviewed negative History of Gastric ulcer last EGD 2013 On examination morbidly obese patient Discussed with DR. Bella Scheduled for EGD tomorrow Would get cardiology clearance and anesthesiology prior Would hold heparin four hours before procedure 11/11/17 22:13
--- NOTE | 2017-11-11 08:16 | PN ---
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 The patient had no symptoms. He denied chest pain, palpitations, shortness of breath. He was treated with beta-blockers and calcium channel blockers. Finally on oral diltiazem, the patient's rate had come down to 65 beats per minute. When seen today, he is sitting up in bed. His is at bedside. He offers no complaints. He is in good spirits. He will be going for the second part of his thallium stress test later today. PHYSICAL EXAMINATION: LUNGS: On physical exam, his lungs are clear. HEART: Irregularly irregular. VITAL SIGNS: He is afebrile at 97.7 degrees Fahrenheit, blood pressure is 108/59 and heart rate is 65 beats per minute. LABORATORY DATA: The a.m. laboratory studies show the white blood cell count to be 6.3. His hemoglobin is 8.5 which is a considerable drop from 9.7 the day before. Hematocrit is 28.4, platelet count is 146. Sodium is 133, potassium 3.7, blood urea nitrogen is 44 which is down from 53, thanks to overnight IV fluids, creatinine is 1.2, glucose is 101. I discussed the case with Dr. Chahal, his laborer pole crew. We agree that there may be some dilutional effects causing the drop in his hemoglobin, however, 1 g drop is considerable amount concerning the size of the patient and there was a note of concern, therefore, we decided to follow the patient with repeat blood work in the morning and we are asking Dr. Muro, the fruit picker to evaluate the patient. Of note, few stool samples from 3 o'clock in the morning was negative for heme. We will continue to closely follow the patient. Juliano Bella MD [facility] # [id number]
--- NOTE | 2017-11-11 08:28 | CP.PCM.PN ---
Subjective - Date & Time of Evaluation Date of Evaluation: 11/11/17 Time of Evaluation: 06:25 - Subjective Subjective: No distress,awake, sitting at side of bed, unable to sleep at night Reason for consultation and follow up: Cardiac evaluation of new onset atrial fibrillation, elective stress test Seen and examined by me and Dr. Guillen Objective - Vital Signs/Intake and Output Vital Signs (last 24 hours): Temp Pulse Resp BP Pulse Ox 98.2 F 129 H 20 128/78 96 11/11/17 06:00 11/11/17 06:00 11/11/17 06:00 11/11/17 06:00 11/11/17 06:00 Intake and Output: 11/11/17 11/11/17 06:59 18:59 Intake Total 1727 Output Total 0 Balance 1727 - Medications Medications: Current Medications Aspirin (Aspirin Chewable) 81 mg PO DAILY [facility] Last Admin: 11/10/17 10:31 Dose: 81 mg Atenolol (Tenormin) 25 mg PO DAILY [facility] Last Admin: 11/10/17 10:33 Dose: 25 mg Atorvastatin Calcium (Lipitor) 10 mg PO DIN [facility] Last Admin: 11/10/17 17:22 Dose: 10 mg Diltiazem HCl (Cardizem) 60 mg PO TID [facility] Last Admin: 11/10/17 17:22 Dose: 60 mg Heparin Sodium/Sodium Chloride (Heparin 65751 Units/250ml 1/2 Normal Saline) 25 ,000 units in 250 mls @ 18.942 mls/hr IV .[id number] PRN; Protocol; 12 UNITS/KG/HR PRN Reason: ADJUST RATE PER PROTOCOL Last Admin: 11/11/17 06:44 Dose: 12 units/kg/hr, 18.942 mls/hr Sodium Chloride (Sodium Chloride 0.45%) 1,000 mls @ 100 mls/hr IV .Q10H [facility] Last Admin: 11/10/17 16:57 Dose: 100 mls/hr Metformin HCl (Glucophage) 500 mg PO BID [facility] Last Admin: 11/10/17 17:22 Dose: 500 mg Pantoprazole Sodium (Protonix Ec Tab) 40 mg PO 0600 [facility] Last Admin: 11/11/17 06:44 Dose: 40 mg - Labs Labs: 11/11/17 06:30 11/11/17 06:30 PT 12.7 SECONDS (9.4-12.5) H 11/09/17 11:20 INR 1.10 11/09/17 11:20 APTT 76.7 Seconds (25.1-36.5) H 11/11/17 06:30 - Constitutional Appears: No Acute Distress - Eye Exam Eye Exam: Normal appearance - ENT Exam ENT Exam: Mucous Membranes Moist - Respiratory Exam Respiratory Exam: Decreased Breath Sounds, Clear to Ausculation Bilateral, NORMAL BREATHING PATTERN - Cardiovascular Exam Cardiovascular Exam: Irregular Rhythm, +S1, +S2 Additional comments: Atrial flutter-120's - GI/Abdominal Exam GI & Abdominal Exam: Soft, Normal Bowel Sounds - Extremities Exam Additional comments: 2+ edema - Neurological Exam Neurological Exam: Alert, Awake, Oriented x3 - Psychiatric Exam Psychiatric exam: Normal Affect - Skin Skin Exam: Intact, Warm Assessment and Plan - Assessment and Plan (Free Text) Assessment: 62 year old male morbidly obese who came in for elective stress test and found to be in rapid atrial fibrillation. He was sent to the ER and started on Cardizem drip with bolus.He was also given Digoxin, Verapamil, and beta ba which did not bring the heart rate down. History of coronary artery disease with drug eluding stent on the RCA and LAD, diabetes, hypertension, and hyperlipidemia. Admitted to telemetry on Cardizem drip and Heparin drip. Completed stress test. GI work up for low H/H. Plan: Completed 2 part protocol Thallium Stress test yesterday pending results Heart rate 120's Aflutter, will increase Cardizem and Atenolol dose He was on Cardizem drip yesterday however had 2 seconds pause, IV Cardizem switch to oral Cardizem Stable blood pressure No distress, but unable to sleep at night On Heparin drip for Atrial fib/Aflutter. titrated per protocol On IV 1/2 NSS at 100 cc/hr for hydration, BUN/creatinine improving H/H-8.5/28.4, GI on consult GI recommendation appreciated to have EGD, patient undecided, wanted to go home and come back as out patient procedure Continue current medications Continue current treatment Will follow up Plan and treatment discussed with Dr. Guillen
[2017-11-11] MEDS: Sodium Chloride 0.45% 1,000 ML IV SCH ×2 (12:38→13:50)
--- NOTE | 2017-11-11 13:07 | CT ---
Date of service: 11/11/2017 PROCEDURE: CT Abdomen and Pelvis without intravenous contrast HISTORY: Anemia; History of PUD COMPARISON: None. TECHNIQUE: Without contrast.. Contrast dose: Radiation dose: Total exam DLP = 1093 mGy-cm. This CT exam was performed using one or more of the following dose reduction techniques: Automated exposure control, adjustment of the mA and/or kV according to patient size, and/or use of iterative reconstruction technique. FINDINGS: LOWER THORAX: Small pleural effusions LIVER: Unremarkable. No gross lesion or ductal dilatation. GALLBLADDER AND BILE DUCTS: Gallbladder removed PANCREAS: Unremarkable. No gross lesion or ductal dilatation. SPLEEN: Unremarkable. ADRENALS: Unremarkable. No mass. KIDNEYS AND URETERS: Unremarkable. No hydronephrosis. No solid mass. VASCULATURE: Unremarkable. No aortic aneurysm. BOWEL: Unremarkable. No obstruction. No gross mural thickening. APPENDIX: Unremarkable. Normal appendix. PERITONEUM: Unremarkable. No free fluid. No free air. LYMPH NODES: Unremarkable. No enlarged lymph nodes. BLADDER: Unremarkable. REPRODUCTIVE: Unremarkable. BONES: No acute fracture. OTHER FINDINGS: None. IMPRESSION: No acute intra-abdominal findings
[2017-11-11] MEDS ORDERED: Digoxin 500 mcg/2ml (0.5 mg/2ml) Inj IVP ONE ×2 (14:38→18:00)
--- NOTE | 2017-11-11 19:42 | PN ---
DATE: 11/11/2017 DAILY PROGRESS NOTE SUBJECTIVE: Patient was seen this morning in room 268, bed 1, who is sitting at the edge of the bed with no visitors present. We spoke with him about atrial fibrillation and the workup in progress including the drop in hemoglobin and the endoscopy that is hoped for tomorrow. PHYSICAL EXAMINATION: GENERAL: Patient is awake, alert, and clear. LUNGS: Show good aeration, right and left. HEART: Regular, borderline tachycardic in the upper 90s. ASSESSMENT AND PLAN: Case discussed with Dr. Muro for endoscopy tomorrow to work up the drop in hemoglobin. We will keep him on IV heparin until then and then switch probably to Eliquis. I told the patient if he is cleared by Cardiology and his rate remains stable regardless of rhythm, he might be ready to go home as early as Wednesday or Wednesday. The patient is very much looking forward to go home as soon as possible. Jose Angel Bella MD
[2017-11-12] MEDS: Pantoprazole 40 mg EC Tab PO SCH (06:07)
--- NOTE | 2017-11-12 06:53 | CP.PCM.PN ---
Subjective - Date & Time of Evaluation Date of Evaluation: 11/12/17 Time of Evaluation: 06:15 - Subjective Subjective: Lying in bed, No distress,awake, kept NPO for EGD today Reason for consultation and follow up: Cardiac evaluation of new onset atrial fibrillation, elective Thallium Stress test, Seen and examined by me and Dr. Guillen Objective - Vital Signs/Intake and Output Vital Signs (last 24 hours): Temp Pulse Resp BP Pulse Ox 97.8 F 130 H 19 129/88 95 11/12/17 06:00 11/12/17 06:00 11/12/17 06:00 11/12/17 06:00 11/12/17 06:00 Intake and Output: 11/11/17 11/12/17 18:59 06:59 Intake Total 920 736 Output Total 2300 600 Balance -1380 136 - Medications Medications: Current Medications Aspirin (Aspirin Chewable) 81 mg PO DAILY [facility] Last Admin: 11/11/17 09:12 Dose: 81 mg Atorvastatin Calcium (Lipitor) 10 mg PO DIN [facility] Last Admin: 11/11/17 18:01 Dose: 10 mg Carvedilol (Coreg) 3.125 mg PO BID [facility] Last Admin: 11/11/17 18:01 Dose: 3.125 mg Digoxin (Lanoxin) 0.25 mg PO 1400 [facility] Diltiazem HCl (Cardizem) 60 mg PO QID [facility] Last Admin: 11/11/17 22:00 Dose: 60 mg Furosemide (Lasix) 40 mg PO DAILY [facility] Heparin Sodium/Sodium Chloride (Heparin 05069 Units/250ml 1/2 Normal Saline) 25 ,000 units in 250 mls @ 18.942 mls/hr IV .[id number] PRN; Protocol; 12 UNITS/KG/HR PRN Reason: ADJUST RATE PER PROTOCOL Last Admin: 11/11/17 20:19 Dose: 12 units/kg/hr, 18.942 mls/hr Lisinopril (Zestril) 2.5 mg PO DAILY [facility] Metformin HCl (Glucophage) 500 mg PO BID [facility] Last Admin: 11/11/17 18:01 Dose: 500 mg Pantoprazole Sodium (Protonix Ec Tab) 40 mg PO 0600 [facility] Last Admin: 11/12/17 06:07 Dose: 40 mg - Labs Labs: 11/11/17 06:30 11/11/17 06:30 PT 12.7 SECONDS (9.4-12.5) H 11/09/17 11:20 INR 1.10 11/09/17 11:20 APTT 76.7 Seconds (25.1-36.5) H 11/11/17 06:30 - Constitutional Appears: No Acute Distress - Eye Exam Eye Exam: Normal appearance - ENT Exam ENT Exam: Mucous Membranes Moist - Respiratory Exam Respiratory Exam: Clear to Ausculation Bilateral, NORMAL BREATHING PATTERN - Cardiovascular Exam Cardiovascular Exam: Irregular Rhythm, +S1, +S2 Additional comments: telemetry Atrial flutter 70's - GI/Abdominal Exam GI & Abdominal Exam: Soft, Normal Bowel Sounds - Extremities Exam Extremities Exam: Normal Capillary Refill Additional comments: 1-2+ edema - Neurological Exam Neurological Exam: Alert, Awake, Oriented x3 - Psychiatric Exam Psychiatric exam: Normal Affect - Skin Skin Exam: Intact, Warm Assessment and Plan - Assessment and Plan (Free Text) Assessment: 62 year old male morbidly obese who came in for elective stress test and found to be in rapid atrial fibrillation. He was sent to the ER and started on Cardizem drip with bolus.He was also given Digoxin, Verapamil, and beta ba which did not bring the heart rate down. History of coronary artery disease with drug eluding stent on the RCA and LAD, diabetes, hypertension, and hyperlipidemia. Admitted to telemetry on Cardizem drip and Heparin drip. Completed stress test. GI work up for low H/H. IV Cardizem switch to oral. For EGD today. Cleared for procedure. Moderate to high risk considering co- morbidities. Plan: Agreed and consented for EGD today Cleared for procedure from cardiac standpoint Hold Heparin for the procedure Thallium Stress test fixed savanah septal apical distal defect suggestive of previous myocardial infarction, LVEF 22% Needs Ablation as out patient for afib/aflutter if does not convert to normal sinus rhthym. right now rate controlled. In the future, may need AICD for low EF (LVEF 22%) Stable blood pressure Started Digoxin yesterday No distress On ASA 81 mg daily,Lipitor 10 mg daily,coreg 3.125 mg BID, Digoxin 0.25 mg daily, Cardizem 60 mg QID,Zestril 2.5 mg daily, Lasix 40 mg daily GI on consult, work up in progress Continue current medications Continue current treatment Will follow up Plan and treatment discussed with Dr. Guillen
--- NOTE | 2017-11-12 08:21 | PN ---
DATE: 11/11/2017 REASON FOR THE CONSULTATION AND FOLLOWUP: Atrial flutter, new onset during the stress test; severe anemia. This note is an addendum to the initial progress note dictated by our nurse practitioner, Nina Mcnally. Stress test reviewed fixed defect. No reversible ischemia. Ejection fraction 22%, significantly decreased. The patient had echocardiography done also shows 4-chamber dilatation, ejection fraction 35% to 40%, atrial flutter, trace aortic regurgitation, trace mitral regurgitation, trace tricuspid regurgitation. In view of above, we will continue the GI workup. Once the GI workup is done, we will start Eliquis because it is hard for the patient to be remained in sinus because of 4-chamber dilatation and suggest possible radiofrequency ablation that will improve the EF and after radiofrequency ablation, if still EF remains low, consider AICD. We will discuss with the patient and discuss with the . For now, we will leave on heparin until the endoscopy is done and GI workup is done. Once the GI workup we will start Eliquis and will discharge as outpatient to have EP evaluation for radiofrequency ablation of flutter, so that it may improve the LV function. Monitor renal function closely and monitor electrolytes, and we will change medication to Coreg and first we will control the heart rate. When the rate is well controlled, then we will put low dose of LILIANA inhibitors, diuretics, heart failure therapy, and we will discontinue IV fluid. We will give two doses of digoxin and continue with Cardizem. Inez Guillen MD
[2017-11-12 08:36] LABS: BASO # 0.05 K/mm3 (0.0-2.0); BASO % 0.7 % (0.0-3.0); EOS # 0.4 (0.0-0.7); EOS % 4.9 % (1.5-5.0); GRAN # 5.05 (1.4-6.5); GRAN % 71.4 % (50.0-68.0); HEMOGLOBIN 9.2 g/dL (14.0-18.0); LYMPH # 0.9 (1.2-3.4); MEAN CELL VOLUME 83.1 fl (80.0-105.0); MEAN CORPUSCULAR HEMOGLOBIN 24.7 pg (25.0-35.0); MEAN CORPUSCULAR HGB CONC 29.7 g/dl (31.0-37.0); MEAN PLATELET VOLUME 9.4 fl (7.0-11.0); MONO # 0.7 (0.1-0.6); RBC 3.73 10^6/uL (3.5-6.1); RED CELL DISTRIBUTION WIDTH 16.6 % (11.5-14.5); WHITE BLOOD COUNT 7.1 10^3/ul (4.5-11.0)
[2017-11-12 08:39] LABS: INR 1.14; PROTHROMBIN TIME 13.1 SECONDS (9.4-12.5)
[2017-11-12 08:47] LABS: ALB/GLOB RATIO 1.3 (1.1-1.8); ALBUMIN 3.8 g/dL (3.0-4.8); ALT/SGPT 32 U/L (7-56); AST/SGOT 20 U/L (17-59); BLOOD UREA NITROGEN 32 mg/dL (7-21); CALCIUM 8.6 mg/dL (8.4-10.5); GFR NON-AFRICAN AMERICAN > 60
[2017-11-12] MEDS ORDERED: Dextrose 50% SYRINGE Inj (50 ml) IV STA (09:14)
[2017-11-12] MEDS ORDERED: Insulin Regular 1 UNITS/0.01 ML ML IVP STA (09:14)
[2017-11-12 12:57] LABS: BLOOD UREA NITROGEN 30 mg/dL (7-21); CALCIUM 8.8 mg/dL (8.4-10.5); GFR NON-AFRICAN AMERICAN > 60
--- NOTE | 2017-11-12 14:58 | PN ---
DATE: 11/12/2017 REASON FOR DICTATION: Addendum to initial progress note dictated this morning. SUBJECTIVE: The patient is cleared for endoscopy and colonoscopy. Continue now heart failure therapy because stress test was done, found the ejection fraction of 22%, fixed defect. No reversible ischemia. 35%. The patient has stent in coronaries and admitted with AFib/flutter. Plan is to continue GI workup. Rule out any active bleeding. If no active bleeding, we will start anticoagulation and therefore the patient for radiofrequency ablation for AFib/flutter. Reassess the LV function after ablation if the EF does not improve 35, consider AICD. Discussed with the patient in length. Discussed with the patient's . The patient is cleared to go for endoscopy from Cardiology point of view. After endoscopy, the patient is okay to be discharged. We have started back on digoxin. Continue Lasix. Continue lisinopril and continue Coreg. The patient is not on spironolactone because potassium is elevated. We will repeat SMA-7 in the morning. Inez Guillen MD
[2017-11-12] MEDS ORDERED: Benzocaine/Butamben/Tetracai 14-2-2% TOP Spray TOP ONE (15:31)
[2017-11-12] MEDS ORDERED: Midazolam 2 MG/2 ML VIAL ONE ×2 (15:34→15:36)
[2017-11-12] MEDS ORDERED: Propofol 10 mg/ml Inj (20 ML) ONE (15:35)
[2017-11-12] MEDS ORDERED: Esmolol 100 mg/10ml Inj IV ONE (15:35)
[2017-11-12] MEDS ORDERED: Etomidate 20 mg/10ml Inj IV ONE (15:35)
[2017-11-12 16:00] LABS: ARTERIAL BLOOD GAS O2 SAT 98.7 % (95-98); ARTERIAL BLOOD GAS PCO2 52 mm/Hg (35-45); ARTERIAL BLOOD GAS PH 7.29 (7.35-7.45); ARTERIAL BLOOD GAS TCO2 26.6 mmol.L (22-28)
[2017-11-12] MEDS ORDERED: Naloxone 0.4 mg/ml Inj (Adult) ONE (16:02)
[2017-11-12] MEDS ORDERED: Flumazenil 0.1 mg/ml Inj (5ml) IVP ONE (16:02)
--- NOTE | 2017-11-12 16:19 | PCM.RRT ---
<Bruce Portillo - Last Filed: 11/12/17 16:46> FRONT END ALIGNMENT SPECIALIST Nurse Assessment - Situation Date: 11/12/17 Time FRONT END ALIGNMENT SPECIALIST was called: 15:43 FRONT END ALIGNMENT SPECIALIST Location:: Endoscopy FRONT END ALIGNMENT SPECIALIST Reason for Call: O2 Saturation below 90% FRONT END ALIGNMENT SPECIALIST Called By: Physician - Respiratory Oxygen Delivery Method: Intubated Plan - Assessment of Findings&Treatment Plan Bruce Portillo- Internal Medicine Resident- House Doctor Subjective: FRONT END ALIGNMENT SPECIALIST called on patient for oxygen desaturation during endoscopic procedure. As per staff, patient was undergoing upper endoscopy with use of fentanyl and versed for sedation when his oxygen saturation decreased to ~50%. Procedure was stopped and patient was intubated by anesthesiologist. During FRONT END ALIGNMENT SPECIALIST patient was given flumazenil and narcan as per anesthesiologist's instructions. Further subjective data cannot be attained at this time due to ams. 12 Point ROS cannot be ascertained due to altered mental status Physical Examination: - Constitutional Appears: No Acute Distress - Head Exam Head Exam: ATRAUMATIC - Eye Exam Pupil Exam: PERRL - ENT Exam ENT Exam: Mucous Membranes Moist - Respiratory Exam Respiratory Exam: Bilateral breath sounds audible, absent: Respiratory Distress - Cardiovascular Exam Cardiovascular Exam: Tachycardia, +S1, +S2 - GI/Abdominal Exam GI & Abdominal Exam: Normal Bowel Sounds. absent: Firm, Guarding - Extremities Exam Extremities exam: Positive for: normal inspection. Negative for: calf tenderness - Neurological Exam Neurological exam: patient is awake, alert, does not respond to verbal stimuli, does not follow commands, retracts from painful stimuli - Skin Skin Exam: Normal Color, Warm Assessment and Plan: Patient is a 62 year old male on whom an FRONT END ALIGNMENT SPECIALIST called was called upon for respiratory failure. Hypercapnic Respiratory Failure - Patient intubated by anesthesiologist, s/p flumazenil and narcan - EKG- Sinus Tachycardia, RBBB- HR 129bpm, QTc 591 - ABG reviewed- acidotic, retaining CO2 52, O2 516, Bicarb 25, Lactic 2.5 - Patient transferred to ICU for further management- extubated as patient is more awake, alert, and responsive - Patient case endorsed to ICU team Primary team made aware patient case. Family made aware by ICU attending and are present at bedside. Patient case endorsed to and plan approved by attending physician, Dr. Ríos. <Josy Ríos - Last Filed: 11/13/17 13:52> Attending/Attestation - Attestation I have personally seen and examined this patient.: Yes I have fully participated in the care of the patient.: Yes I have reviewed all pertinent clinical information, including history, physical exam and plan: Yes Notes (Text): 11/13/17 13:48 Attending note; Patient seen and examined with resident during rapid response. Patient is a 62 year old male with PMH of of CAD s/p stent, new onset Atrial Fibrillation was placed on cardizem and heparin drip. The patient went for endoscopy today and desaturated despite measures take to gently sedate and carefully monitor O2 sat. Patient was intubated by anesthesia. EGD was not completed due to desaturation. A rapid response was called, the patient was given narcan to reverse the sedation effects and the patient was moved to the ICU. She was evaluated by sewing machine operator semiautomatic . Currently patient is extubated . Alert and awake .mildly confused . Not in any acute distress . Vitals stable . Case discussed with sewing machine operator semiautomatic in detail . Patient's family by the bedside . Monitor closely in ICU. PMD and saddle and side wire stitcher aware of the transfer. Further plan per PMD/cardiology and GI. 11/13/17 13:52
[2017-11-12] MEDS ORDERED: Dextrose 50% SYRINGE Inj (50 ml) IV PRN (16:23)
[2017-11-12] MEDS: diltiaZEM IVPB 100mg in NS 100 ML IV PRN (16:33)
--- NOTE | 2017-11-12 16:50 | CP.PCM.CON ---
<Jazmine Maurice - Last Filed: 11/12/17 17:28> History of Present Illness - History of Present Illness History of Present Illness: ICU Consult for Dr. Hernández consulted for Respiratory Distress This is a 62 y.o patient with PMH of of CAD s/p stent on Plavix and Aspirin was at last picker, s/p thallium stress 11/10 found to be tachycardic 130-140 with new onset Atrial Fibrillation,placed on cardizem and heparin drip. recieved endoscopy today and despite measures take to gently sedate and carefully monitor O2 sat the patient quickly desaturated and had to be intubated. A rapid response was called, the patient was given narcan to reverse the sedation effects and the patient was moved to the ICU. Upon arrival he began to be more alert and mildly combative. The patient was extubated after following commands and passing extubation criteria. After extubation he was able to cough well and answer simple questions. He denies CP, WEST, abdominal pain, nausea or vomiting. PMH: HTN, morbid obesity,DM,diabetic foot ulcer, venous stasis of lower extremities, CBD stone PSH: cholecystectomy, cardiac catherization w/ stent (11/2016), EGD 08/2014: gastric ulcer, gastric BX: no IM/HP, EUS/ERCP 06/2013: CBD stone extraction w/ spincterotomy Social HX: denies smoking, etoh, illicit drugs Allergies: Sulfa Family HX: noncontributory at this time Home MEDS: reviewed as per MAR: at home on PLAVIX/Aspirin Review of Systems - Review of Systems All systems: reviewed and no additional remarkable complaints except Review of Systems: as per HPI Past Patient History - Infectious Disease Hx of Infectious Diseases: None - Tetanus Immunizations Tetanus Immunization: Unknown - Past Social History Smoking Status: Never Smoked - CARDIAC Hx Congestive Heart Failure: Yes Hx Hypertension: Yes Hx Pacemaker: No - PULMONARY Hx Respiratory Disorders: No - NEUROLOGICAL Hx Paralysis: No - HEENT Hx HEENT Problems: Yes Other/Comment: wear glasses - RENAL Hx Chronic Kidney Disease: Yes Hx Kidney Stones: Yes - ENDOCRINE/METABOLIC Hx Diabetes Mellitus Type 2: Yes - HEMATOLOGICAL/ONCOLOGICAL Hx Blood Transfusions: No Hx Blood Transfusion Reaction: No - INTEGUMENTARY Hx Dermatological Problems: No - MUSCULOSKELETAL/RHEUMATOLOGICAL Hx Musculoskeletal Disorders: Yes - GASTROINTESTINAL Hx Gastrointestinal Disorders: Yes Hx Gall Bladder Disease: Yes (cholecystectomy) Hx Gastroesophageal Reflux: Yes - GENITOURINARY/GYNECOLOGICAL Hx Genitourinary Disorders: No - PSYCHIATRIC Hx Emotional Abuse: No Hx Physical Abuse: No Hx Substance Use: No - SURGICAL HISTORY Hx Surgeries: Yes - ANESTHESIA Hx Anesthesia Reactions: No Hx Malignant Hyperthermia: No Meds Allergies/Adverse Reactions: Allergies Allergy/AdvReac Type Severity Reaction Status Date / Time Sulfa (Sulfonamide Allergy RASH Verified 11/09/17 11:27 Antibiotics) - Medications Medications: Current Medications Aspirin (Aspirin Chewable) 81 mg PO DAILY [facility] Last Admin: 11/12/17 09:27 Dose: Not Given Atorvastatin Calcium (Lipitor) 10 mg PO DIN [facility] Last Admin: 11/11/17 18:01 Dose: 10 mg Carvedilol (Coreg) 3.125 mg PO BID [facility] Last Admin: 11/12/17 09:23 Dose: 3.125 mg Dextrose (Dextrose 50% Inj) 0 ml IV STAT PRN; Protocol PRN Reason: Hypoglycemia Protocol Digoxin (Lanoxin) 0.25 mg PO 1400 [facility] Diltiazem HCl (Cardizem) 60 mg PO QID [facility] Last Admin: 11/12/17 13:44 Dose: Not Given Furosemide (Lasix) 40 mg PO DAILY [facility] Last Admin: 11/12/17 09:23 Dose: 40 mg Heparin Sodium/Sodium Chloride (Heparin 43471 Units/250ml 1/2 Normal Saline) 25 ,000 units in 250 mls @ 18.942 mls/hr IV .[id number] PRN; Protocol; 12 UNITS/KG/HR PRN Reason: ADJUST RATE PER PROTOCOL Last Admin: 11/11/17 20:19 Dose: 12 units/kg/hr, 18.942 mls/hr diltiaZEM IVPB 100mg in NS (Cardizem 100mg In Ns) 100 mls @ 5 mls/hr IV .Q20H PRN; Protocol; 5 MG/HR PRN Reason: TITRATE PER MD ORDER Last Admin: 11/12/17 16:33 Dose: 5 mg/hr, 5 mls/hr Dextrose (Dextrose 5% In Water 1000 Ml) 1,000 mls @ 0 mls/hr IV .Q0M PRN; Protocol; Per Protocol PRN Reason: Hypoglycemia Protocol Insulin Human Lispro (Humalog Low) 0 units SC ACHS [facility] PRN Reason: Protocol Lisinopril (Zestril) 2.5 mg PO DAILY [facility] Last Admin: 11/12/17 09:24 Dose: 2.5 mg Metformin HCl (Glucophage) 500 mg PO BID [facility] Last Admin: 11/11/17 18:01 Dose: 500 mg Pantoprazole Sodium (Protonix Ec Tab) 40 mg PO 0600 [facility] Last Admin: 11/12/17 06:07 Dose: 40 mg Physical Exam - Constitutional Appears: Non-toxic, No Acute Distress - Head Exam Head Exam: ATRAUMATIC, NORMAL INSPECTION - Respiratory Exam Respiratory Exam: Rales - Cardiovascular Exam Cardiovascular Exam: Tachycardia Additional comments: in atrial fibrillation with RVR - GI/Abdominal Exam GI & Abdominal Exam: Soft. absent: Firm, Guarding, Tenderness - Extremities Exam Extremities exam: Negative for: calf tenderness - Neurological Exam Neurological exam: Alert, CN II-XII Intact, Oriented x3 - Psychiatric Exam Psychiatric exam: Normal Affect, Normal Mood - Skin Skin Exam: Dry, Intact, Normal Color, Warm Results - Vital Signs Recent Vital Signs: Last Vital Signs Temp 98 F 11/12/17 15:14 Pulse 114 H 11/12/17 15:14 Resp 16 11/12/17 15:14 BP 163/91 H 11/12/17 16:32 Pulse Ox 100 11/12/17 15:14 - Labs Result Diagrams: 11/12/17 07:30 11/12/17 12:40 Labs: Laboratory Results - last 24 hr 11/11/17 11/11/17 11/12/17 16:47 21:24 06:30 WBC RBC Hgb Hct MCV MCH MCHC RDW Plt Count MPV Gran % Lymph % (Auto) Woodruff % (Auto) Eos % (Auto) Baso % (Auto) Gran # Lymph # (Auto) Woodruff # (Auto) Eos # (Auto) Baso # (Auto) PT INR APTT 75.1 H pCO2 pO2 HCO3 ABG pH ABG Total CO2 ABG O2 Saturation ABG Base Excess ABG Potassium Lactate FiO2 Sodium Potassium Chloride Carbon Dioxide Anion Gap BUN Creatinine Est GFR ( Amer) Est GFR (Non-Af Amer) POC Glucose (mg/dL) 144 H 136 H Random Glucose Calcium Total Bilirubin AST ALT Alkaline Phosphatase Total Protein Albumin Globulin Albumin/Globulin Ratio Arterial Blood Potassium 11/12/17 11/12/17 11/12/17 07:30 07:30 07:30 WBC 7.1 RBC 3.73 Hgb 9.2 L Hct 31.0 L MCV 83.1 MCH 24.7 L MCHC 29.7 L RDW 16.6 H Plt Count 164 MPV 9.4 Gran % 71.4 H Lymph % (Auto) 13.0 L Woodruff % (Auto) 10.0 H Eos % (Auto) 4.9 Baso % (Auto) 0.7 Gran # 5.05 Lymph # (Auto) 0.9 L Woodruff # (Auto) 0.7 H Eos # (Auto) 0.4 Baso # (Auto) 0.05 PT 13.1 H INR 1.14 APTT pCO2 pO2 HCO3 ABG pH ABG Total CO2 ABG O2 Saturation ABG Base Excess ABG Potassium Lactate FiO2 Sodium 139 Potassium 5.3 H Chloride 107 Carbon Dioxide 25 Anion Gap 12 BUN 32 H Creatinine 1.2 Est GFR ( Amer) > 60 Est GFR (Non-Af Amer) > 60 POC Glucose (mg/dL) Random Glucose 152 H Calcium 8.6 Total Bilirubin 0.6 AST 20 ALT 32 Alkaline Phosphatase 79 Total Protein 6.7 Albumin 3.8 Globulin 3.0 Albumin/Globulin Ratio 1.3 Arterial Blood Potassium 11/12/17 11/12/17 11/12/17 07:33 12:40 12:48 WBC RBC Hgb Hct MCV MCH MCHC RDW Plt Count MPV Gran % Lymph % (Auto) Woodruff % (Auto) Eos % (Auto) Baso % (Auto) Gran # Lymph # (Auto) Woodruff # (Auto) Eos # (Auto) Baso # (Auto) PT INR APTT pCO2 pO2 HCO3 ABG pH ABG Total CO2 ABG O2 Saturation ABG Base Excess ABG Potassium Lactate FiO2 Sodium 139 Potassium 4.6 Chloride 106 Carbon Dioxide 25 Anion Gap 13 BUN 30 H Creatinine 1.2 Est GFR ( Amer) > 60 Est GFR (Non-Af Amer) > 60 POC Glucose (mg/dL) 149 H 164 H Random Glucose 171 H Calcium 8.8 Total Bilirubin AST ALT Alkaline Phosphatase Total Protein Albumin Globulin Albumin/Globulin Ratio Arterial Blood Potassium 11/12/17 15:57 WBC RBC Hgb Hct MCV MCH MCHC RDW Plt Count MPV Gran % Lymph % (Auto) Woodruff % (Auto) Eos % (Auto) Baso % (Auto) Gran # Lymph # (Auto) Woodruff # (Auto) Eos # (Auto) Baso # (Auto) PT INR APTT pCO2 52 H pO2 516.0 H HCO3 25.0 ABG pH 7.29 L ABG Total CO2 26.6 ABG O2 Saturation 98.7 H ABG Base Excess -2.3 L ABG Potassium 4.0 Lactate 2.5 H FiO2 100.0 Sodium 139.0 Potassium Chloride 110.0 H Carbon Dioxide Anion Gap BUN Creatinine Est GFR ( Amer) Est GFR (Non-Af Amer) POC Glucose (mg/dL) Random Glucose Calcium Total Bilirubin AST ALT Alkaline Phosphatase Total Protein Albumin Globulin Albumin/Globulin Ratio Arterial Blood Potassium 4.0 Assessment & Plan - Assessment and Plan (Free Text) Assessment: 62 y/o M who presents from Endoscopy with acute respiratory decompensation during procedure with light sedation. Patient needed to be intubated during the procedure d/t acute desaturation. Upon arrival in ICU after recieving narcan he became alert and awake following commands and was subsequently extubated. Will monitor in ICU overnight. Plan: Neuro - awake alert oriented x3 - denies pain - moves all extremities, no gross deficits Cardio: - afib RVR, restarted on Heparin and Cardizem drip - c/w all previous cardiac meds - Dr. Guillen following - maintain systolic BP above 90 Pulm: - will likely need bipap overnight - maintain O2 sats >90% - O2NC PRN GI: - soft NT - c/w protonix - GI following Endo: - ISS, hypoglycemia protocol oin place - [facility] blood sugar checks - maintain euglycemia Renal: - BUN/ CR 33/1.2 - f/u UOP - will monitor Heme: - hgb/hct 9.2/31 - no signs of bleeding at this time - will monitor ID: - no concerns for infection at this time - WBC normal, afebrile patient seen and discussed with Dr. Edgar Maurice, PGY1 - Date & Time Date: 11/12/17 Time: 16:20 <Krunal Hernández - Last Filed: 11/12/17 18:15> Meds - Medications Medications: Current Medications Aspirin (Aspirin Chewable) 81 mg PO DAILY [facility] Last Admin: 11/12/17 09:27 Dose: Not Given Atorvastatin Calcium (Lipitor) 10 mg PO DIN [facility] Last Admin: 11/12/17 16:50 Dose: Not Given Carvedilol (Coreg) 3.125 mg PO BID [facility] Last Admin: 11/12/17 09:23 Dose: 3.125 mg Dextrose (Dextrose 50% Inj) 0 ml IV STAT PRN; Protocol PRN Reason: Hypoglycemia Protocol Digoxin (Lanoxin) 0.25 mg PO 1400 [facility] Diltiazem HCl (Cardizem) 60 mg PO QID [facility] Last Admin: 11/12/17 13:44 Dose: Not Given Furosemide (Lasix) 40 mg PO DAILY [facility] Last Admin: 11/12/17 09:23 Dose: 40 mg Heparin Sodium/Sodium Chloride (Heparin 62145 Units/250ml 1/2 Normal Saline) 25 ,000 units in 250 mls @ 18.942 mls/hr IV .[id number] PRN; Protocol; 12 UNITS/KG/HR PRN Reason: ADJUST RATE PER PROTOCOL Last Admin: 11/12/17 17:16 Dose: 12 units/kg/hr, 18.942 mls/hr diltiaZEM IVPB 100mg in NS (Cardizem 100mg In Ns) 100 mls @ 5 mls/hr IV .Q20H PRN; Protocol; 5 MG/HR PRN Reason: TITRATE PER MD ORDER Last Admin: 11/12/17 16:33 Dose: 5 mg/hr, 5 mls/hr Dextrose (Dextrose 5% In Water 1000 Ml) 1,000 mls @ 0 mls/hr IV .Q0M PRN; Protocol; Per Protocol PRN Reason: Hypoglycemia Protocol Insulin Human Lispro (Humalog Low) 0 units SC ACHS [facility] PRN Reason: Protocol Last Admin: 11/12/17 17:12 Dose: 1 unit Lisinopril (Zestril) 2.5 mg PO DAILY [facility] Last Admin: 11/12/17 09:24 Dose: 2.5 mg Metformin HCl (Glucophage) 500 mg PO BID [facility] Last Admin: 11/11/17 18:01 Dose: 500 mg Pantoprazole Sodium (Protonix Ec Tab) 40 mg PO 0600 [facility] Last Admin: 11/12/17 06:07 Dose: 40 mg Results - Vital Signs Recent Vital Signs: Last Vital Signs Temp 98 F 11/12/17 15:14 Pulse 114 H 11/12/17 15:14 Resp 16 11/12/17 15:14 BP 163/91 H 11/12/17 16:32 Pulse Ox 100 11/12/17 15:14 - Labs Result Diagrams: 11/12/17 07:30 11/12/17 12:40 Labs: Laboratory Results - last 24 hr 11/11/17 11/11/17 11/12/17 16:47 21:24 06:30 WBC RBC Hgb Hct MCV MCH MCHC RDW Plt Count MPV Gran % Lymph % (Auto) Woodruff % (Auto) Eos % (Auto) Baso % (Auto) Gran # Lymph # (Auto) Woodruff # (Auto) Eos # (Auto) Baso # (Auto) PT INR APTT 75.1 H pCO2 pO2 HCO3 ABG pH ABG Total CO2 ABG O2 Saturation ABG Base Excess ABG Potassium Lactate FiO2 Sodium Potassium Chloride Carbon Dioxide Anion Gap BUN Creatinine Est GFR ( Amer) Est GFR (Non-Af Amer) POC Glucose (mg/dL) 144 H 136 H Random Glucose Calcium Total Bilirubin AST ALT Alkaline Phosphatase Total Protein Albumin Globulin Albumin/Globulin Ratio Arterial Blood Potassium 11/12/17 11/12/17 11/12/17 07:30 07:30 07:30 WBC 7.1 RBC 3.73 Hgb 9.2 L Hct 31.0 L MCV 83.1 MCH 24.7 L MCHC 29.7 L RDW 16.6 H Plt Count 164 MPV 9.4 Gran % 71.4 H Lymph % (Auto) 13.0 L Woodruff % (Auto) 10.0 H Eos % (Auto) 4.9 Baso % (Auto) 0.7 Gran # 5.05 Lymph # (Auto) 0.9 L Woodruff # (Auto) 0.7 H Eos # (Auto) 0.4 Baso # (Auto) 0.05 PT 13.1 H INR 1.14 APTT pCO2 pO2 HCO3 ABG pH ABG Total CO2 ABG O2 Saturation ABG Base Excess ABG Potassium Lactate FiO2 Sodium 139 Potassium 5.3 H Chloride 107 Carbon Dioxide 25 Anion Gap 12 BUN 32 H Creatinine 1.2 Est GFR ( Amer) > 60 Est GFR (Non-Af Amer) > 60 POC Glucose (mg/dL) Random Glucose 152 H Calcium 8.6 Total Bilirubin 0.6 AST 20 ALT 32 Alkaline Phosphatase 79 Total Protein 6.7 Albumin 3.8 Globulin 3.0 Albumin/Globulin Ratio 1.3 Arterial Blood Potassium 11/12/17 11/12/17 11/12/17 07:33 12:40 12:48 WBC RBC Hgb Hct MCV MCH MCHC RDW Plt Count MPV Gran % Lymph % (Auto) Woodruff % (Auto) Eos % (Auto) Baso % (Auto) Gran # Lymph # (Auto) Woodruff # (Auto) Eos # (Auto) Baso # (Auto) PT INR APTT pCO2 pO2 HCO3 ABG pH ABG Total CO2 ABG O2 Saturation ABG Base Excess ABG Potassium Lactate FiO2 Sodium 139 Potassium 4.6 Chloride 106 Carbon Dioxide 25 Anion Gap 13 BUN 30 H Creatinine 1.2 Est GFR ( Amer) > 60 Est GFR (Non-Af Amer) > 60 POC Glucose (mg/dL) 149 H 164 H Random Glucose 171 H Calcium 8.8 Total Bilirubin AST ALT Alkaline Phosphatase Total Protein Albumin Globulin Albumin/Globulin Ratio Arterial Blood Potassium 11/12/17 15:57 WBC RBC Hgb Hct MCV MCH MCHC RDW Plt Count MPV Gran % Lymph % (Auto) Woodruff % (Auto) Eos % (Auto) Baso % (Auto) Gran # Lymph # (Auto) Woodruff # (Auto) Eos # (Auto) Baso # (Auto) PT INR APTT pCO2 52 H pO2 516.0 H HCO3 25.0 ABG pH 7.29 L ABG Total CO2 26.6 ABG O2 Saturation 98.7 H ABG Base Excess -2.3 L ABG Potassium 4.0 Lactate 2.5 H FiO2 100.0 Sodium 139.0 Potassium Chloride 110.0 H Carbon Dioxide Anion Gap BUN Creatinine Est GFR ( Amer) Est GFR (Non-Af Amer) POC Glucose (mg/dL) Random Glucose Calcium Total Bilirubin AST ALT Alkaline Phosphatase Total Protein Albumin Globulin Albumin/Globulin Ratio Arterial Blood Potassium 4.0 Addendum Addendum: 11/12/17 18:11 ICU Attending Addendum: Patient seen and examined. Case reviewed on round with housestaff. Agree with resident note above with the following additions/exceptions: 62M with hx of CAD s/p stent on Plavix and Aspirin along with afib who is brought over to the MICU after rapid response during EGD. Patient was given sedation for the procedure and went into resp failure. Intubated by anesthesia, procedure terminated and brought to MICU. It appeared that his resp distress was from sedation. He was given flumazenil and narcan. When he arrived to MICU he was awake and thrashing. He was pulling for volumes and oxygenating well. I extubated him and he has been holding his own airway since. He has a good cough, 94% on 2L NC, awake alert and following commands. Will monitor in ICU BiPAP QHS F/u CXR Cardio managing Afib RVR cont cardizem drip for now use PO when ok with GI rest of care above Krunal Hernández MD Account Director Crtical Care TIme: 31 mins
[2017-11-12] MEDS: Insulin Lispro (humaLOG) LOW Coverage SC SCH ×2 (17:12→22:46)
[2017-11-12] MEDS: Heparin25000 units/250ml 1/2NS 25,000 UNITS/250 ML BAG IV PRN (17:16)
--- NOTE | 2017-11-12 17:19 | RAD ---
Date of service: 11/12/2017 HISTORY: Extubation. COMPARISON: 11/09/2017 FINDINGS: LUNGS: No active pulmonary disease. PLEURA: No significant pleural effusion identified, no pneumothorax apparent. CARDIOVASCULAR: Cardiomegaly. No evidence of acute, significant cardiovascular disease. OSSEOUS STRUCTURES: No significant abnormalities. VISUALIZED UPPER ABDOMEN: Normal. OTHER FINDINGS: None. IMPRESSION: No active disease. No significant interval change compared to the prior examination(s).
--- NOTE | 2017-11-12 20:57 | CARD ---
APPROVED REPORT Date of service: 11/12/2017 EKG Measurement Heart [id number] <Conclusion> Wide QRS tachycardia with fusion complexes Right bundle branch block Anteroseptal infarct, age undetermined Abnormal ECG
[2017-11-12 21:19] LABS: VENOUS BLOOD GAS BASE EXCESS -0.7 mmol/L (0.0-2.0); VENOUS BLOOD GAS PO2 46 mm/Hg (30-55)
--- NOTE | 2017-11-13 01:43 | PN ---
DATE: 11/12/2017 DAILY PROGRESS NOTE SUBJECTIVE: The patient was seen this Wednesday edge banding off bearer in room 268, bed 1. He is scheduled for endoscopy later today and workup for the drop in hemoglobin. He was seen sitting on the edge of the bed, awake, alert, clear, comfortable. Hoping to go home soon. PHYSICAL EXAMINATION: This morning; LUNGS: Show good aeration, right and left. HEART: Irregular, borderline tachycardiac in the high 90s. ABDOMEN: Obese. EXTREMITIES: Show no edema. IMPRESSION: New onset atrial fibrillation, anemia, drop in hemoglobin, for endoscopy later today. I spoke with the hospitalist and residents and received the phone call from Dr. Muro. During the endoscopy, patient's O2 saturation desaturated , he was intubated, came to the intensive care, was quickly weaned and extubated, will be kept in the ICU to further evaluate and follow up. Jose Angel Bella MD
[2017-11-13] MEDS: diltiaZEM IVPB 100mg in NS 100 ML IV PRN (03:05)
[2017-11-13] MEDS: Pantoprazole 40 mg EC Tab PO SCH (06:10)
[2017-11-13 06:13] LABS: BASO # 0.03 K/mm3 (0.0-2.0); BASO % 0.4 % (0.0-3.0); EOS # 0.2 (0.0-0.7); EOS % 2.9 % (1.5-5.0); GRAN # 5.09 (1.4-6.5); GRAN % 73.7 % (50.0-68.0); HEMOGLOBIN 9.2 g/dL (14.0-18.0); LYMPH % 13.9 % (22.0-35.0); MEAN CELL VOLUME 83.3 fl (80.0-105.0); MEAN CORPUSCULAR HEMOGLOBIN 24.3 pg (25.0-35.0); MEAN CORPUSCULAR HGB CONC 29.2 g/dl (31.0-37.0); MEAN PLATELET VOLUME 9.3 fl (7.0-11.0); MONO # 0.6 (0.1-0.6); MONO % 9.1 % (1.0-6.0); RBC 3.78 10^6/uL (3.5-6.1); RED CELL DISTRIBUTION WIDTH 16.7 % (11.5-14.5); WHITE BLOOD COUNT 6.9 10^3/ul (4.5-11.0)
[2017-11-13 06:25] LABS: BLOOD UREA NITROGEN 31 mg/dL (7-21); GFR NON-AFRICAN AMERICAN 56
[2017-11-13] MEDS: Heparin25000 units/250ml 1/2NS 25,000 UNITS/250 ML BAG IV PRN ×2 (06:45→23:21)
[2017-11-13] MEDS: Insulin Lispro (humaLOG) LOW Coverage SC SCH ×4 (09:56→22:00)
--- NOTE | 2017-11-13 11:07 | CP.PCM.PN ---
<Bradley Mansfield - Last Filed: 11/13/17 11:03> Subjective - Date & Time of Evaluation Date of Evaluation: 11/13/17 Time of Evaluation: 11:04 - Subjective Subjective: GI Fellow PGY4 Patient had eventful day yesterday. Patient became hypoxic very early during EGD. The hypoxia was significant and sudden. There was some small amount of bloody seen in distal stomach/duodenum however unable to observe closely due to hypoxia and procedure aborted. Patient is awake, alert and without any focal neurologic changes. He looks very good today. Heart rate is in the 90s. All details of events discussed with patient at bedside today. He is aware that we would need to perform EGD/CSPY with intubation in the future. Objective - Vital Signs/Intake and Output Vital Signs (last 24 hours): Temp Pulse Resp BP Pulse Ox 97.6 F 88 14 155/60 H 97 11/13/17 06:00 11/13/17 09:55 11/13/17 06:30 11/13/17 09:55 11/13/17 06:30 Intake and Output: 11/13/17 11/13/17 06:59 18:59 Intake Total 1040 Output Total 500 Balance 540 - Medications Medications: Current Medications Aspirin (Aspirin Chewable) 81 mg PO DAILY [facility] Last Admin: 11/13/17 09:55 Dose: 81 mg Atorvastatin Calcium (Lipitor) 10 mg PO DIN [facility] Last Admin: 11/12/17 16:50 Dose: Not Given Carvedilol (Coreg) 3.125 mg PO BID [facility] Last Admin: 11/13/17 09:54 Dose: 3.125 mg Dextrose (Dextrose 50% Inj) 0 ml IV STAT PRN; Protocol PRN Reason: Hypoglycemia Protocol Digoxin (Lanoxin) 0.25 mg PO 1400 [facility] Diltiazem HCl (Cardizem) 60 mg PO QID [facility] Last Admin: 11/13/17 09:55 Dose: 60 mg Furosemide (Lasix) 40 mg PO DAILY [facility] Last Admin: 11/13/17 09:55 Dose: 40 mg Heparin Sodium/Sodium Chloride (Heparin 14566 Units/250ml 1/2 Normal Saline) 25 ,000 units in 250 mls @ 18.942 mls/hr IV .[id number] PRN; Protocol; 12 UNITS/KG/HR PRN Reason: ADJUST RATE PER PROTOCOL Last Admin: 11/13/17 06:45 Dose: 12 units/kg/hr, 18.942 mls/hr Dextrose (Dextrose 5% In Water 1000 Ml) 1,000 mls @ 0 mls/hr IV .Q0M PRN; Protocol; Per Protocol PRN Reason: Hypoglycemia Protocol Insulin Human Lispro (Humalog Low) 0 units SC ACHS [facility] PRN Reason: Protocol Last Admin: 11/13/17 09:56 Dose: Not Given Lisinopril (Zestril) 2.5 mg PO DAILY [facility] Last Admin: 11/13/17 09:55 Dose: 2.5 mg Metformin HCl (Glucophage) 500 mg PO BID [facility] Last Admin: 11/11/17 18:01 Dose: 500 mg Pantoprazole Sodium (Protonix Ec Tab) 40 mg PO 0600 [facility] Last Admin: 11/13/17 06:10 Dose: 40 mg - Labs Labs: 11/13/17 05:00 11/13/17 05:00 PT 13.1 SECONDS (9.4-12.5) H 11/12/17 07:30 INR 1.14 11/12/17 07:30 APTT 51.1 Seconds (25.1-36.5) H 11/13/17 08:00 - Constitutional Appears: Non-toxic, No Acute Distress - Head Exam Head Exam: NORMAL INSPECTION - Eye Exam Eye Exam: EOMI, Normal appearance - ENT Exam ENT Exam: Mucous Membranes Moist - Respiratory Exam Respiratory Exam: Clear to Ausculation Bilateral, NORMAL BREATHING PATTERN. absent: Rales - Cardiovascular Exam Cardiovascular Exam: Irregular Rhythm, +S1, +S2. absent: Tachycardia - GI/Abdominal Exam GI & Abdominal Exam: Soft, Tenderness, Normal Bowel Sounds - Extremities Exam Extremities Exam: Normal Inspection - Neurological Exam Neurological Exam: Alert, Awake, Oriented x3 - Psychiatric Exam Psychiatric exam: Normal Affect, Normal Mood - Skin Skin Exam: Dry, Normal Color Assessment and Plan - Assessment and Plan (Free Text) Assessment: 62 year old male with a past medical history significant for HTN, morbid obesity , DM2 ,diabetic foot ulcer, venous stasis of lower extremities, CBD stone, PUD, who presents for new onset atrial fibrillation. GI was consulted for acute drop in hemoglobin. FOBT negative. Patient is currently on a heparin drip and without GI complaints such as abdominal pain, N/V/D/C, hematemesis, melena or hematochezia. Plan: -EGD 11/12/17 aborted due to acute hypoxia. Small amount of blood observed in distal stomach/duodenum. Cannot comment on source as exam aborted quickly into procedure. He will need to be intubated if we are to evaluate upper and lower GI system in the future. -H/H stable -Continue to monitor with serial CBC's -OK to resume Heart Healthy Moderate Carbohydrate Consistent Diet -Continue daily PPI. Avoid NSAIDs. -No planned endoscopic procedures at this time, will discuss with Dr. Muro and medical team. <Sarah Muro V - Last Filed: 11/13/17 20:52> Objective - Vital Signs/Intake and Output Vital Signs (last 24 hours): Temp Pulse Resp BP Pulse Ox 98.4 F 77 14 136/92 H 97 11/13/17 18:00 11/13/17 18:00 11/13/17 06:30 11/13/17 17:08 11/13/17 06:30 Intake and Output: 11/13/17 11/14/17 18:59 06:59 Intake Total 976 Output Total 1000 Balance -24 - Medications Medications: Current Medications Aspirin (Aspirin Chewable) 81 mg PO DAILY [facility] Last Admin: 11/13/17 09:55 Dose: 81 mg Atorvastatin Calcium (Lipitor) 10 mg PO DIN [facility] Last Admin: 11/13/17 17:07 Dose: 10 mg Carvedilol (Coreg) 3.125 mg PO BID [facility] Last Admin: 11/13/17 17:07 Dose: 3.125 mg Dextrose (Dextrose 50% Inj) 0 ml IV STAT PRN; Protocol PRN Reason: Hypoglycemia Protocol Digoxin (Lanoxin) 0.25 mg PO 1400 [facility] Last Admin: 11/13/17 13:10 Dose: 0.25 mg Diltiazem HCl (Cardizem) 60 mg PO QID [facility] Last Admin: 11/13/17 17:08 Dose: 60 mg Furosemide (Lasix) 40 mg PO DAILY [facility] Last Admin: 11/13/17 09:55 Dose: 40 mg Heparin Sodium/Sodium Chloride (Heparin 48908 Units/250ml 1/2 Normal Saline) 25 ,000 units in 250 mls @ 18.942 mls/hr IV .[id number] PRN; Protocol; 12 UNITS/KG/HR PRN Reason: ADJUST RATE PER PROTOCOL Last Admin: 11/13/17 06:45 Dose: 12 units/kg/hr, 18.942 mls/hr Dextrose (Dextrose 5% In Water 1000 Ml) 1,000 mls @ 0 mls/hr IV .Q0M PRN; Protocol; Per Protocol PRN Reason: Hypoglycemia Protocol Insulin Human Lispro (Humalog Low) 0 units SC ACHS [facility] PRN Reason: Protocol Last Admin: 11/13/17 17:07 Dose: 1 unit Lisinopril (Zestril) 2.5 mg PO DAILY [facility] Last Admin: 11/13/17 09:55 Dose: 2.5 mg Metformin HCl (Glucophage) 500 mg PO BID [facility] Last Admin: 11/11/17 18:01 Dose: 500 mg Pantoprazole Sodium (Protonix Ec Tab) 40 mg PO 0600 [facility] Last Admin: 11/13/17 06:10 Dose: 40 mg - Labs Labs: 11/13/17 05:00 11/13/17 05:00 PT 13.1 SECONDS (9.4-12.5) H 11/12/17 07:30 INR 1.14 11/12/17 07:30 APTT 51.1 Seconds (25.1-36.5) H 11/13/17 08:00 Attending/Attestation - Attestation I have personally seen and examined this patient.: Yes I have fully participated in the care of the patient.: Yes I have reviewed all pertinent clinical information, including history, physical exam and plan: Yes Notes (Text): This is an addendum to GI progress report dictated by the GI Fellow.The patient was seen and examined earlier. Medical records, lab studies, imagings were reviewed. Last 24 hours events reviewed. 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
--- NOTE | 2017-11-13 11:47 | CP.CCUPN ---
<Jethro Portillo - Last Filed: 11/13/17 11:44> CCU Subjective - Physician Review Subjective (Free Text): 11/13/17 11:44 Jethro Portillo DO PGY1 - Internal Medicine Human Resources Director - ICU Progress Note Patient seen and examiend this morning at bed side. Overnight patient did show signs of apnea; patient was observed w/ respiratory pauses. No complaints voiced this AM Denies any chest pain, shortness of breath, abd pain, n/v/d/c, FND, headaches, dizziness. Remainder of 12 system ROS negative at this time. CCU Objective - Vital Signs / Intake & Output Vital Signs (Last 4 hours): Vital Signs Pulse BP 11/13/17 09:55 88 155/60 H 11/13/17 09:54 88 155/60 H Intake and Output (Last 8hrs): Intake & Output 11/12/17 11/13/17 11/13/17 22:59 06:59 14:59 Intake Total 15 1025 Output Total 500 Balance 15 525 Weight 157.714 kg Intake: IV 15 625 Left Wrist 288 Oral 400 Output: Urine 500 Urine, Voided 500 Other: # Bowel Movements 0 - Physical Exam Head: Positive for: Atraumatic, Normocephalic Pupils: Positive for: PERRL Extroacular Muscles: Positive for: EOMI Conjunctiva: Positive for: Normal Mouth: Positive for: Moist Mucous Membranes Respiratory/Chest: Positive for: Clear to Auscultation, Good Air Exchange, Other (Apneic ). Negative for: Respiratory Distress, Accessory Muscle Use Cardiovascular: Positive for: Normal S1, S2, Peripheal Pulses Present. Negative for: Murmurs Abdomen: Positive for: Other (Obese abdomen w/ normoactive bowel sounds w/o rebound, guarding, or tenderness. ). Negative for: Tenderness, Distention, Peritoneal Signs Upper Extremity: Positive for: Normal Inspection, NORMAL PULSES. Negative for: Cyanosis, Edema Lower Extremity: Positive for: Edema (2+ pitting bilaterally), Other ( diminished pulses in lower extremities BL ). Negative for: CALF TENDERNESS, NORMAL PULSES Neurological: Positive for: GCS=15, Speech Normal Psychiatric: Positive for: Alert, Oriented x 3, Normal Insight, Normal Concentration - Medications Active Medications: Active Medications Generic Name Dose Route Start Last Admin Trade Name Freq PRN Reason Stop Dose Admin Aspirin 81 mg 11/10/17 10:00 11/13/17 09:55 Aspirin Chewable PO 81 mg DAILY BRYSON Administration Atorvastatin Calcium 10 mg 11/10/17 17:00 11/12/17 16:50 Lipitor PO Not Given DIN BRYSON Carvedilol 3.125 mg 11/11/17 18:00 11/13/17 09:54 Coreg PO 3.125 mg BID BRYSON Administration Dextrose 0 ml 11/12/17 16:23 Dextrose 50% Inj IV STAT PRN Hypoglycemia Protocol Protocol Digoxin 0.25 mg 11/12/17 14:00 Lanoxin PO 1400 BRYSON Diltiazem HCl 60 mg 11/11/17 10:00 11/13/17 09:55 Cardizem PO 60 mg QID BRYSON Administration Furosemide 40 mg 11/12/17 10:00 11/13/17 09:55 Lasix PO 40 mg DAILY BRYSON Administration Heparin Sodium/Sodium Chloride 25,000 units in 250 mls @ 18.942 mls/hr 14:11 11/13/17 06:45 Heparin 75107 Units/250ml 1/2 Normal Saline IV 12 units/kg/hr .[id number] PRN 18.942 mls/hr ADJUST RATE PER PROTOCOL Administration Protocol 12 UNITS/KG/HR Dextrose 1,000 mls @ 0 mls/hr 11/12/17 16:23 Dextrose 5% In Water 1000 Ml IV .Q0M PRN Hypoglycemia Protocol Protocol Per Protocol Insulin Human Lispro 0 units 11/12/17 16:30 11/13/17 09:56 Humalog Low SC Not Given ACHS [facility] Protocol Lisinopril 2.5 mg 11/12/17 10:00 11/13/17 09:55 Zestril PO 2.5 mg DAILY BRYSON Administration Metformin HCl 500 mg 11/10/17 10:00 11/11/17 18:01 Glucophage PO 500 mg BID BRYSON Administration Pantoprazole Sodium 40 mg 11/11/17 06:00 11/13/17 06:10 Protonix Ec Tab PO 40 mg 0600 BRYSON Administration - Patient Studies Lab Studies: Lab Studies 11/13/17 11/13/17 11/13/17 Range/Units 08:00 07:36 05:00 WBC (4.5-11.0) 10^3/ul RBC (3.5-6.1) 10^6/uL Hgb (14.0-18.0) g/dL Hct (42.0-52.0) % MCV (80.0-105.0) fl MCH (25.0-35.0) pg MCHC (31.0-37.0) g/dl RDW (11.5-14.5) % Plt Count (120.0-450.0) 10^3/uL MPV (7.0-11.0) fl Gran % (50.0-68.0) % Lymph % (Auto) (22.0-35.0) % Toole % (Auto) (1.0-6.0) % Eos % (Auto) (1.5-5.0) % Baso % (Auto) (0.0-3.0) % Gran # (1.4-6.5) Lymph # (Auto) (1.2-3.4) Toole # (Auto) (0.1-0.6) Eos # (Auto) (0.0-0.7) Baso # (Auto) (0.0-2.0) K/mm3 APTT 51.1 H (25.1-36.5) Seconds pCO2 (35-45) mm/Hg pO2 (80-100) mm/Hg HCO3 (21-28) mmol/L ABG pH (7.35-7.45) ABG Total CO2 (22-28) mmol.L ABG O2 Saturation (95-98) % ABG Base Excess (-2.0-3.0) mmol/L ABG Potassium (3.6-5.2) mmol/L VBG pH (7.32-7.43) VBG pCO2 (40-60) VBG HCO3 (21-28) mmol/l VBG Total CO2 (22-28) mmol.L VBG O2 Sat (Calc) (40-65) % VBG Base Excess (0.0-2.0) mmol/L VBG Potassium (3.6-5.2) mmol/L Glucose Lactate (0.7-2.1) mmol/L FiO2 % Sodium 140 (132-148) mmol/L Potassium 4.3 (3.6-5.0) mmol/L Chloride 105 (98-107) mmol/L Carbon Dioxide 26 (21-33) mmol/L Anion Gap 13 (10-20) BUN 31 H (7-21) mg/dL Creatinine 1.3 (0.8-1.5) mg/dl Est GFR ( Amer) > 60 Est GFR (Non-Af Amer) 56 POC Glucose (mg/dL) 152 H (65-110) mg/dL Random Glucose 145 H (70-110) mg/dL Calcium 9.0 (8.4-10.5) mg/dL Phosphorus 4.2 (2.5-4.5) mg/dL Magnesium 2.2 (1.7-2.2) mg/dL Arterial Blood Potassium (3.6-5.2) mmol/L Venous Blood Potassium (3.6-5.2) mmol/L 11/13/17 11/12/17 11/12/17 Range/Units 05:00 23:45 21:00 WBC 6.9 (4.5-11.0) 10^3/ul RBC 3.78 (3.5-6.1) 10^6/uL Hgb 9.2 L (14.0-18.0) g/dL Hct 31.5 L (42.0-52.0) % MCV 83.3 (80.0-105.0) fl MCH 24.3 L (25.0-35.0) pg MCHC 29.2 L (31.0-37.0) g/dl RDW 16.7 H (11.5-14.5) % Plt Count 160 (120.0-450.0) 10^3/uL MPV 9.3 (7.0-11.0) fl Gran % 73.7 H (50.0-68.0) % Lymph % (Auto) 13.9 L (22.0-35.0) % Toole % (Auto) 9.1 H (1.0-6.0) % Eos % (Auto) 2.9 (1.5-5.0) % Baso % (Auto) 0.4 (0.0-3.0) % Gran # 5.09 (1.4-6.5) Lymph # (Auto) 1.0 L (1.2-3.4) Toole # (Auto) 0.6 (0.1-0.6) Eos # (Auto) 0.2 (0.0-0.7) Baso # (Auto) 0.03 (0.0-2.0) K/mm3 APTT 49.6 H (25.1-36.5) Seconds pCO2 (35-45) mm/Hg pO2 46 (80-100) mm/Hg HCO3 (21-28) mmol/L ABG pH (7.35-7.45) ABG Total CO2 (22-28) mmol.L ABG O2 Saturation (95-98) % ABG Base Excess (-2.0-3.0) mmol/L ABG Potassium (3.6-5.2) mmol/L VBG pH 7.30 L (7.32-7.43) VBG pCO2 54.0 (40-60) VBG HCO3 26.6 (21-28) mmol/l VBG Total CO2 28.3 H (22-28) mmol.L VBG O2 Sat (Calc) 77.5 H (40-65) % VBG Base Excess -0.7 L (0.0-2.0) mmol/L VBG Potassium 4.5 (3.6-5.2) mmol/L Glucose 158 H Lactate 1.0 (0.7-2.1) mmol/L FiO2 21.0 % Sodium 138.0 (132-148) mmol/L Potassium (3.6-5.0) mmol/L Chloride 108.0 H (98-107) mmol/L Carbon Dioxide (21-33) mmol/L Anion Gap (10-20) BUN (7-21) mg/dL Creatinine (0.8-1.5) mg/dl Est GFR ( Amer) Est GFR (Non-Af Amer) POC Glucose (mg/dL) (65-110) mg/dL Random Glucose (70-110) mg/dL Calcium (8.4-10.5) mg/dL Phosphorus (2.5-4.5) mg/dL Magnesium (1.7-2.2) mg/dL Arterial Blood Potassium (3.6-5.2) mmol/L Venous Blood Potassium 4.5 (3.6-5.2) mmol/L 11/12/17 11/12/17 11/12/17 Range/Units 16:56 15:57 12:48 WBC (4.5-11.0) 10^3/ul RBC (3.5-6.1) 10^6/uL Hgb (14.0-18.0) g/dL Hct (42.0-52.0) % MCV (80.0-105.0) fl MCH (25.0-35.0) pg MCHC (31.0-37.0) g/dl RDW (11.5-14.5) % Plt Count (120.0-450.0) 10^3/uL MPV (7.0-11.0) fl Gran % (50.0-68.0) % Lymph % (Auto) (22.0-35.0) % Toole % (Auto) (1.0-6.0) % Eos % (Auto) (1.5-5.0) % Baso % (Auto) (0.0-3.0) % Gran # (1.4-6.5) Lymph # (Auto) (1.2-3.4) Toole # (Auto) (0.1-0.6) Eos # (Auto) (0.0-0.7) Baso # (Auto) (0.0-2.0) K/mm3 APTT (25.1-36.5) Seconds pCO2 52 H (35-45) mm/Hg pO2 516.0 H (80-100) mm/Hg HCO3 25.0 (21-28) mmol/L ABG pH 7.29 L (7.35-7.45) ABG Total CO2 26.6 (22-28) mmol.L ABG O2 Saturation 98.7 H (95-98) % ABG Base Excess -2.3 L (-2.0-3.0) mmol/L ABG Potassium 4.0 (3.6-5.2) mmol/L VBG pH (7.32-7.43) VBG pCO2 (40-60) VBG HCO3 (21-28) mmol/l VBG Total CO2 (22-28) mmol.L VBG O2 Sat (Calc) (40-65) % VBG Base Excess (0.0-2.0) mmol/L VBG Potassium (3.6-5.2) mmol/L Glucose TEST NOT PERFORMED Lactate 2.5 H (0.7-2.1) mmol/L FiO2 100.0 % Sodium 139.0 (132-148) mmol/L Potassium (3.6-5.0) mmol/L Chloride 110.0 H (98-107) mmol/L Carbon Dioxide (21-33) mmol/L Anion Gap (10-20) BUN (7-21) mg/dL Creatinine (0.8-1.5) mg/dl Est GFR ( Amer) Est GFR (Non-Af Amer) POC Glucose (mg/dL) 195 H 164 H (65-110) mg/dL Random Glucose (70-110) mg/dL Calcium (8.4-10.5) mg/dL Phosphorus (2.5-4.5) mg/dL Magnesium (1.7-2.2) mg/dL Arterial Blood Potassium 4.0 (3.6-5.2) mmol/L Venous Blood Potassium (3.6-5.2) mmol/L 11/12/17 11/12/17 Range/Units 12:40 07:33 WBC (4.5-11.0) 10^3/ul RBC (3.5-6.1) 10^6/uL Hgb (14.0-18.0) g/dL Hct (42.0-52.0) % MCV (80.0-105.0) fl MCH (25.0-35.0) pg MCHC (31.0-37.0) g/dl RDW (11.5-14.5) % Plt Count (120.0-450.0) 10^3/uL MPV (7.0-11.0) fl Gran % (50.0-68.0) % Lymph % (Auto) (22.0-35.0) % Toole % (Auto) (1.0-6.0) % Eos % (Auto) (1.5-5.0) % Baso % (Auto) (0.0-3.0) % Gran # (1.4-6.5) Lymph # (Auto) (1.2-3.4) Toole # (Auto) (0.1-0.6) Eos # (Auto) (0.0-0.7) Baso # (Auto) (0.0-2.0) K/mm3 APTT (25.1-36.5) Seconds pCO2 (35-45) mm/Hg pO2 (80-100) mm/Hg HCO3 (21-28) mmol/L ABG pH (7.35-7.45) ABG Total CO2 (22-28) mmol.L ABG O2 Saturation (95-98) % ABG Base Excess (-2.0-3.0) mmol/L ABG Potassium (3.6-5.2) mmol/L VBG pH (7.32-7.43) VBG pCO2 (40-60) VBG HCO3 (21-28) mmol/l VBG Total CO2 (22-28) mmol.L VBG O2 Sat (Calc) (40-65) % VBG Base Excess (0.0-2.0) mmol/L VBG Potassium (3.6-5.2) mmol/L Glucose Lactate (0.7-2.1) mmol/L FiO2 % Sodium 139 (132-148) mmol/L Potassium 4.6 (3.6-5.0) mmol/L Chloride 106 (98-107) mmol/L Carbon Dioxide 25 (21-33) mmol/L Anion Gap 13 (10-20) BUN 30 H (7-21) mg/dL Creatinine 1.2 (0.8-1.5) mg/dl Est GFR ( Amer) > 60 Est GFR (Non-Af Amer) > 60 POC Glucose (mg/dL) 149 H (65-110) mg/dL Random Glucose 171 H (70-110) mg/dL Calcium 8.8 (8.4-10.5) mg/dL Phosphorus (2.5-4.5) mg/dL Magnesium (1.7-2.2) mg/dL Arterial Blood Potassium (3.6-5.2) mmol/L Venous Blood Potassium (3.6-5.2) mmol/L Laboratory Results - last 24 hr 11/12/17 11/12/17 11/12/17 07:33 12:40 12:48 WBC RBC Hgb Hct MCV MCH MCHC RDW Plt Count MPV Gran % Lymph % (Auto) Toole % (Auto) Eos % (Auto) Baso % (Auto) Gran # Lymph # (Auto) Toole # (Auto) Eos # (Auto) Baso # (Auto) APTT pCO2 pO2 HCO3 ABG pH ABG Total CO2 ABG O2 Saturation ABG Base Excess ABG Potassium VBG pH VBG pCO2 VBG HCO3 VBG Total CO2 VBG O2 Sat (Calc) VBG Base Excess VBG Potassium Glucose Lactate FiO2 Sodium 139 Potassium 4.6 Chloride 106 Carbon Dioxide 25 Anion Gap 13 BUN 30 H Creatinine 1.2 Est GFR ( Amer) > 60 Est GFR (Non-Af Amer) > 60 POC Glucose (mg/dL) 149 H 164 H Random Glucose 171 H Calcium 8.8 Phosphorus Magnesium Arterial Blood Potassium Venous Blood Potassium 11/12/17 11/12/17 11/12/17 15:57 16:56 21:00 WBC RBC Hgb Hct MCV MCH MCHC RDW Plt Count MPV Gran % Lymph % (Auto) Toole % (Auto) Eos % (Auto) Baso % (Auto) Gran # Lymph # (Auto) Toole # (Auto) Eos # (Auto) Baso # (Auto) APTT pCO2 52 H pO2 516.0 H 46 HCO3 25.0 ABG pH 7.29 L ABG Total CO2 26.6 ABG O2 Saturation 98.7 H ABG Base Excess -2.3 L ABG Potassium 4.0 VBG pH 7.30 L VBG pCO2 54.0 VBG HCO3 26.6 VBG Total CO2 28.3 H VBG O2 Sat (Calc) 77.5 H VBG Base Excess -0.7 L VBG Potassium 4.5 Glucose TEST NOT PERFORMED 158 H Lactate 2.5 H 1.0 FiO2 100.0 21.0 Sodium 139.0 138.0 Potassium Chloride 110.0 H 108.0 H Carbon Dioxide Anion Gap BUN Creatinine Est GFR ( Amer) Est GFR (Non-Af Amer) POC Glucose (mg/dL) 195 H Random Glucose Calcium Phosphorus Magnesium Arterial Blood Potassium 4.0 Venous Blood Potassium 4.5 11/12/17 11/13/17 11/13/17 23:45 05:00 05:00 WBC 6.9 RBC 3.78 Hgb 9.2 L Hct 31.5 L MCV 83.3 MCH 24.3 L MCHC 29.2 L RDW 16.7 H Plt Count 160 MPV 9.3 Gran % 73.7 H Lymph % (Auto) 13.9 L Toole % (Auto) 9.1 H Eos % (Auto) 2.9 Baso % (Auto) 0.4 Gran # 5.09 Lymph # (Auto) 1.0 L Toole # (Auto) 0.6 Eos # (Auto) 0.2 Baso # (Auto) 0.03 APTT 49.6 H pCO2 pO2 HCO3 ABG pH ABG Total CO2 ABG O2 Saturation ABG Base Excess ABG Potassium VBG pH VBG pCO2 VBG HCO3 VBG Total CO2 VBG O2 Sat (Calc) VBG Base Excess VBG Potassium Glucose Lactate FiO2 Sodium 140 Potassium 4.3 Chloride 105 Carbon Dioxide 26 Anion Gap 13 BUN 31 H Creatinine 1.3 Est GFR ( Amer) > 60 Est GFR (Non-Af Amer) 56 POC Glucose (mg/dL) Random Glucose 145 H Calcium 9.0 Phosphorus 4.2 Magnesium 2.2 Arterial Blood Potassium Venous Blood Potassium 11/13/17 11/13/17 07:36 08:00 WBC RBC Hgb Hct MCV MCH MCHC RDW Plt Count MPV Gran % Lymph % (Auto) Toole % (Auto) Eos % (Auto) Baso % (Auto) Gran # Lymph # (Auto) Toole # (Auto) Eos # (Auto) Baso # (Auto) APTT 51.1 H pCO2 pO2 HCO3 ABG pH ABG Total CO2 ABG O2 Saturation ABG Base Excess ABG Potassium VBG pH VBG pCO2 VBG HCO3 VBG Total CO2 VBG O2 Sat (Calc) VBG Base Excess VBG Potassium Glucose Lactate FiO2 Sodium Potassium Chloride Carbon Dioxide Anion Gap BUN Creatinine Est GFR ( Amer) Est GFR (Non-Af Amer) POC Glucose (mg/dL) 152 H Random Glucose Calcium Phosphorus Magnesium Arterial Blood Potassium Venous Blood Potassium EKG/Cardiology Studies: Cardiology / EKG Studies 11/12/17 15:53 EKG [ELECTROCARDIOGRAM] Stat Comment: Reason For Exam: Rapid Fingerstick Blood Sugar Results: 152 Critical Care Progress Note - Nutrition Nutrition: Nutrition Category Date Time Status Heart Healthy Diet [DIET] Diets 11/13/17 Lunch Active Assessment/Plan - Assessment and Plan (Free Text) Assessment: 62M w/ a PMH CAD s/p stenting presented [place] [facility] [place] test on ; Entered into AFib w/ RVR and suspected to subsequently have GI Bleed. During EGD for workup of GI Bleed; Patient desaturated requiring immediate intubation. Patient was extubated shortly after. Neruo: AAO3 No FND on exam Moving extremities past midline ReOrient as necessary Pulm: Respiratory failure requiring intubation s/p extubation 11/13; tolerating NC well No signs of respiratory failure at this time Patient had episodes of apnea overnight w/ desaturation into low/mid 80s Suggested for Bipap/CPAP overnight tonight Sleep study as outpt Pulmonology Dr. Pineda following Pulm Following Cardio: Afib w/ RVR Patient initially on cardizem gtt; Cardizem gtt transitioned to cardizem 60mg PO QID C/w Heparin gtt C/w Coreg 3.125 BID C/w Lasix 40 QD C/w Lisinopril 2.5 QD C/w Digoxin 0.25 Continue monitoring HR and Pressures HD Stable; Monitor for decompensation Maintain Map >65 Cardio Following GI: GI Bleed - some blood visualized during EGD yesterday EGD aborted due to patient becoming hypoxic Cont monitoring serial H/H + Vitals Patient not undergoing scope this weekend Resume HHD w/ Carb Consistent Diet PPI QD; Avoid NSAID GI Following : BUN/Cr wnl Patient making good urine Continue monitoring Aim for euvolemia Endo: ISS Low FS ACHS Holding metformin Aim for euglycemia Patient seen, examined, discussed w/ attending Dr. Cesia Portillo DO PGY1 Internal Medicine Human Resources Director - Date & Time Date: 11/13/17 Time: 12:26 <Luis Enrique Callaway - Last Filed: 11/13/17 12:36> CCU Objective - Vital Signs / Intake & Output Vital Signs (Last 4 hours): Vital Signs Pulse BP 11/13/17 09:55 88 155/60 H 11/13/17 09:54 88 155/60 H Intake and Output (Last 8hrs): Intake & Output 11/12/17 11/13/17 11/13/17 22:59 06:59 14:59 Intake Total 15 1025 Output Total 500 Balance 15 525 Weight 347 lb 11.2 oz Intake: IV 15 625 Left Wrist 288 Oral 400 Output: Urine 500 Urine, Voided 500 Other: # Bowel Movements 0 - Medications Active Medications: Active Medications Generic Name Dose Route Start Last Admin Trade Name Freq PRN Reason Stop Dose Admin Aspirin 81 mg 11/10/17 10:00 11/13/17 09:55 Aspirin Chewable PO 81 mg DAILY BRYSON Administration Atorvastatin Calcium 10 mg 11/10/17 17:00 11/12/17 16:50 Lipitor PO Not Given DIN BRYSON Carvedilol 3.125 mg 11/11/17 18:00 11/13/17 09:54 Coreg PO 3.125 mg BID BRYSON Administration Dextrose 0 ml 11/12/17 16:23 Dextrose 50% Inj IV STAT PRN Hypoglycemia Protocol Protocol Digoxin 0.25 mg 11/12/17 14:00 Lanoxin PO 1400 BRYSON Diltiazem HCl 60 mg 11/11/17 10:00 11/13/17 09:55 Cardizem PO 60 mg QID BRYSON Administration Furosemide 40 mg 11/12/17 10:00 11/13/17 09:55 Lasix PO 40 mg DAILY BRYSON Administration Heparin Sodium/Sodium Chloride 25,000 units in 250 mls @ 18.942 mls/hr 14:11 11/13/17 06:45 Heparin 94694 Units/250ml 1/2 Normal Saline IV 12 units/kg/hr .[id number] PRN 18.942 mls/hr ADJUST RATE PER PROTOCOL Administration Protocol 12 UNITS/KG/HR Dextrose 1,000 mls @ 0 mls/hr 11/12/17 16:23 Dextrose 5% In Water 1000 Ml IV .Q0M PRN Hypoglycemia Protocol Protocol Per Protocol Insulin Human Lispro 0 units 11/12/17 16:30 11/13/17 12:27 Humalog Low SC 1 unit ACHS BRYSON Administration Protocol Lisinopril 2.5 mg 11/12/17 10:00 11/13/17 09:55 Zestril PO 2.5 mg DAILY BRYSON Administration Metformin HCl 500 mg 11/10/17 10:00 11/11/17 18:01 Glucophage PO 500 mg BID BRYSON Administration Pantoprazole Sodium 40 mg 11/11/17 06:00 11/13/17 06:10 Protonix Ec Tab PO 40 mg 0600 BRYSON Administration - Patient Studies Lab Studies: Lab Studies 11/13/17 11/13/17 11/13/17 Range/Units 08:00 07:36 05:00 WBC (4.5-11.0) 10^3/ul RBC (3.5-6.1) 10^6/uL Hgb (14.0-18.0) g/dL Hct (42.0-52.0) % MCV (80.0-105.0) fl MCH (25.0-35.0) pg MCHC (31.0-37.0) g/dl RDW (11.5-14.5) % Plt Count (120.0-450.0) 10^3/uL MPV (7.0-11.0) fl Gran % (50.0-68.0) % Lymph % (Auto) (22.0-35.0) % Toole % (Auto) (1.0-6.0) % Eos % (Auto) (1.5-5.0) % Baso % (Auto) (0.0-3.0) % Gran # (1.4-6.5) Lymph # (Auto) (1.2-3.4) Toole # (Auto) (0.1-0.6) Eos # (Auto) (0.0-0.7) Baso # (Auto) (0.0-2.0) K/mm3 APTT 51.1 H (25.1-36.5) Seconds pCO2 (35-45) mm/Hg pO2 (80-100) mm/Hg HCO3 (21-28) mmol/L ABG pH (7.35-7.45) ABG Total CO2 (22-28) mmol.L ABG O2 Saturation (95-98) % ABG Base Excess (-2.0-3.0) mmol/L ABG Potassium (3.6-5.2) mmol/L VBG pH (7.32-7.43) VBG pCO2 (40-60) VBG HCO3 (21-28) mmol/l VBG Total CO2 (22-28) mmol.L VBG O2 Sat (Calc) (40-65) % VBG Base Excess (0.0-2.0) mmol/L VBG Potassium (3.6-5.2) mmol/L Glucose Lactate (0.7-2.1) mmol/L FiO2 % Sodium 140 (132-148) mmol/L Potassium 4.3 (3.6-5.0) mmol/L Chloride 105 (98-107) mmol/L Carbon Dioxide 26 (21-33) mmol/L Anion Gap 13 (10-20) BUN 31 H (7-21) mg/dL Creatinine 1.3 (0.8-1.5) mg/dl Est GFR ( Amer) > 60 Est GFR (Non-Af Amer) 56 POC Glucose (mg/dL) 152 H (65-110) mg/dL Random Glucose 145 H (70-110) mg/dL Calcium 9.0 (8.4-10.5) mg/dL Phosphorus 4.2 (2.5-4.5) mg/dL Magnesium 2.2 (1.7-2.2) mg/dL Arterial Blood Potassium (3.6-5.2) mmol/L Venous Blood Potassium (3.6-5.2) mmol/L 11/13/17 11/12/17 11/12/17 Range/Units 05:00 23:45 21:00 WBC 6.9 (4.5-11.0) 10^3/ul RBC 3.78 (3.5-6.1) 10^6/uL Hgb 9.2 L (14.0-18.0) g/dL Hct 31.5 L (42.0-52.0) % MCV 83.3 (80.0-105.0) fl MCH 24.3 L (25.0-35.0) pg MCHC 29.2 L (31.0-37.0) g/dl RDW 16.7 H (11.5-14.5) % Plt Count 160 (120.0-450.0) 10^3/uL MPV 9.3 (7.0-11.0) fl Gran % 73.7 H (50.0-68.0) % Lymph % (Auto) 13.9 L (22.0-35.0) % Toole % (Auto) 9.1 H (1.0-6.0) % Eos % (Auto) 2.9 (1.5-5.0) % Baso % (Auto) 0.4 (0.0-3.0) % Gran # 5.09 (1.4-6.5) Lymph # (Auto) 1.0 L (1.2-3.4) Toole # (Auto) 0.6 (0.1-0.6) Eos # (Auto) 0.2 (0.0-0.7) Baso # (Auto) 0.03 (0.0-2.0) K/mm3 APTT 49.6 H (25.1-36.5) Seconds pCO2 (35-45) mm/Hg pO2 46 (80-100) mm/Hg HCO3 (21-28) mmol/L ABG pH (7.35-7.45) ABG Total CO2 (22-28) mmol.L ABG O2 Saturation (95-98) % ABG Base Excess (-2.0-3.0) mmol/L ABG Potassium (3.6-5.2) mmol/L VBG pH 7.30 L (7.32-7.43) VBG pCO2 54.0 (40-60) VBG HCO3 26.6 (21-28) mmol/l VBG Total CO2 28.3 H (22-28) mmol.L VBG O2 Sat (Calc) 77.5 H (40-65) % VBG Base Excess -0.7 L (0.0-2.0) mmol/L VBG Potassium 4.5 (3.6-5.2) mmol/L Glucose 158 H Lactate 1.0 (0.7-2.1) mmol/L FiO2 21.0 % Sodium 138.0 (132-148) mmol/L Potassium (3.6-5.0) mmol/L Chloride 108.0 H (98-107) mmol/L Carbon Dioxide (21-33) mmol/L Anion Gap (10-20) BUN (7-21) mg/dL Creatinine (0.8-1.5) mg/dl Est GFR ( Amer) Est GFR (Non-Af Amer) POC Glucose (mg/dL) (65-110) mg/dL Random Glucose (70-110) mg/dL Calcium (8.4-10.5) mg/dL Phosphorus (2.5-4.5) mg/dL Magnesium (1.7-2.2) mg/dL Arterial Blood Potassium (3.6-5.2) mmol/L Venous Blood Potassium 4.5 (3.6-5.2) mmol/L 11/12/17 11/12/17 11/12/17 Range/Units 16:56 15:57 12:48 WBC (4.5-11.0) 10^3/ul RBC (3.5-6.1) 10^6/uL Hgb (14.0-18.0) g/dL Hct (42.0-52.0) % MCV (80.0-105.0) fl MCH (25.0-35.0) pg MCHC (31.0-37.0) g/dl RDW (11.5-14.5) % Plt Count (120.0-450.0) 10^3/uL MPV (7.0-11.0) fl Gran % (50.0-68.0) % Lymph % (Auto) (22.0-35.0) % Toole % (Auto) (1.0-6.0) % Eos % (Auto) (1.5-5.0) % Baso % (Auto) (0.0-3.0) % Gran # (1.4-6.5) Lymph # (Auto) (1.2-3.4) Toole # (Auto) (0.1-0.6) Eos # (Auto) (0.0-0.7) Baso # (Auto) (0.0-2.0) K/mm3 APTT (25.1-36.5) Seconds pCO2 52 H (35-45) mm/Hg pO2 516.0 H (80-100) mm/Hg HCO3 25.0 (21-28) mmol/L ABG pH 7.29 L (7.35-7.45) ABG Total CO2 26.6 (22-28) mmol.L ABG O2 Saturation 98.7 H (95-98) % ABG Base Excess -2.3 L (-2.0-3.0) mmol/L ABG Potassium 4.0 (3.6-5.2) mmol/L VBG pH (7.32-7.43) VBG pCO2 (40-60) VBG HCO3 (21-28) mmol/l VBG Total CO2 (22-28) mmol.L VBG O2 Sat (Calc) (40-65) % VBG Base Excess (0.0-2.0) mmol/L VBG Potassium (3.6-5.2) mmol/L Glucose TEST NOT PERFORMED Lactate 2.5 H (0.7-2.1) mmol/L FiO2 100.0 % Sodium 139.0 (132-148) mmol/L Potassium (3.6-5.0) mmol/L Chloride 110.0 H (98-107) mmol/L Carbon Dioxide (21-33) mmol/L Anion Gap (10-20) BUN (7-21) mg/dL Creatinine (0.8-1.5) mg/dl Est GFR ( Amer) Est GFR (Non-Af Amer) POC Glucose (mg/dL) 195 H 164 H (65-110) mg/dL Random Glucose (70-110) mg/dL Calcium (8.4-10.5) mg/dL Phosphorus (2.5-4.5) mg/dL Magnesium (1.7-2.2) mg/dL Arterial Blood Potassium 4.0 (3.6-5.2) mmol/L Venous Blood Potassium (3.6-5.2) mmol/L 11/12/17 Range/Units 12:40 WBC (4.5-11.0) 10^3/ul RBC (3.5-6.1) 10^6/uL Hgb (14.0-18.0) g/dL Hct (42.0-52.0) % MCV (80.0-105.0) fl MCH (25.0-35.0) pg MCHC (31.0-37.0) g/dl RDW (11.5-14.5) % Plt Count (120.0-450.0) 10^3/uL MPV (7.0-11.0) fl Gran % (50.0-68.0) % Lymph % (Auto) (22.0-35.0) % Toole % (Auto) (1.0-6.0) % Eos % (Auto) (1.5-5.0) % Baso % (Auto) (0.0-3.0) % Gran # (1.4-6.5) Lymph # (Auto) (1.2-3.4) Toole # (Auto) (0.1-0.6) Eos # (Auto) (0.0-0.7) Baso # (Auto) (0.0-2.0) K/mm3 APTT (25.1-36.5) Seconds pCO2 (35-45) mm/Hg pO2 (80-100) mm/Hg HCO3 (21-28) mmol/L ABG pH (7.35-7.45) ABG Total CO2 (22-28) mmol.L ABG O2 Saturation (95-98) % ABG Base Excess (-2.0-3.0) mmol/L ABG Potassium (3.6-5.2) mmol/L VBG pH (7.32-7.43) VBG pCO2 (40-60) VBG HCO3 (21-28) mmol/l VBG Total CO2 (22-28) mmol.L VBG O2 Sat (Calc) (40-65) % VBG Base Excess (0.0-2.0) mmol/L VBG Potassium (3.6-5.2) mmol/L Glucose Lactate (0.7-2.1) mmol/L FiO2 % Sodium 139 (132-148) mmol/L Potassium 4.6 (3.6-5.0) mmol/L Chloride 106 (98-107) mmol/L Carbon Dioxide 25 (21-33) mmol/L Anion Gap 13 (10-20) BUN 30 H (7-21) mg/dL Creatinine 1.2 (0.8-1.5) mg/dl Est GFR ( Amer) > 60 Est GFR (Non-Af Amer) > 60 POC Glucose (mg/dL) (65-110) mg/dL Random Glucose 171 H (70-110) mg/dL Calcium 8.8 (8.4-10.5) mg/dL Phosphorus (2.5-4.5) mg/dL Magnesium (1.7-2.2) mg/dL Arterial Blood Potassium (3.6-5.2) mmol/L Venous Blood Potassium (3.6-5.2) mmol/L Laboratory Results - last 24 hr 11/12/17 11/12/17 11/12/17 12:40 12:48 15:57 WBC RBC Hgb Hct MCV MCH MCHC RDW Plt Count MPV Gran % Lymph % (Auto) Toole % (Auto) Eos % (Auto) Baso % (Auto) Gran # Lymph # (Auto) Toole # (Auto) Eos # (Auto) Baso # (Auto) APTT pCO2 52 H pO2 516.0 H HCO3 25.0 ABG pH 7.29 L ABG Total CO2 26.6 ABG O2 Saturation 98.7 H ABG Base Excess -2.3 L ABG Potassium 4.0 VBG pH VBG pCO2 VBG HCO3 VBG Total CO2 VBG O2 Sat (Calc) VBG Base Excess VBG Potassium Glucose TEST NOT PERFORMED Lactate 2.5 H FiO2 100.0 Sodium 139 139.0 Potassium 4.6 Chloride 106 110.0 H Carbon Dioxide 25 Anion Gap 13 BUN 30 H Creatinine 1.2 Est GFR ( Amer) > 60 Est GFR (Non-Af Amer) > 60 POC Glucose (mg/dL) 164 H Random Glucose 171 H Calcium 8.8 Phosphorus Magnesium Arterial Blood Potassium 4.0 Venous Blood Potassium 11/12/17 11/12/17 11/12/17 16:56 21:00 23:45 WBC RBC Hgb Hct MCV MCH MCHC RDW Plt Count MPV Gran % Lymph % (Auto) Toole % (Auto) Eos % (Auto) Baso % (Auto) Gran # Lymph # (Auto) Toole # (Auto) Eos # (Auto) Baso # (Auto) APTT 49.6 H pCO2 pO2 46 HCO3 ABG pH ABG Total CO2 ABG O2 Saturation ABG Base Excess ABG Potassium VBG pH 7.30 L VBG pCO2 54.0 VBG HCO3 26.6 VBG Total CO2 28.3 H VBG O2 Sat (Calc) 77.5 H VBG Base Excess -0.7 L VBG Potassium 4.5 Glucose 158 H Lactate 1.0 FiO2 21.0 Sodium 138.0 Potassium Chloride 108.0 H Carbon Dioxide Anion Gap BUN Creatinine Est GFR ( Amer) Est GFR (Non-Af Amer) POC Glucose (mg/dL) 195 H Random Glucose Calcium Phosphorus Magnesium Arterial Blood Potassium Venous Blood Potassium 4.5 11/13/17 11/13/17 11/13/17 05:00 05:00 07:36 WBC 6.9 RBC 3.78 Hgb 9.2 L Hct 31.5 L MCV 83.3 MCH 24.3 L MCHC 29.2 L RDW 16.7 H Plt Count 160 MPV 9.3 Gran % 73.7 H Lymph % (Auto) 13.9 L Toole % (Auto) 9.1 H Eos % (Auto) 2.9 Baso % (Auto) 0.4 Gran # 5.09 Lymph # (Auto) 1.0 L Toole # (Auto) 0.6 Eos # (Auto) 0.2 Baso # (Auto) 0.03 APTT pCO2 pO2 HCO3 ABG pH ABG Total CO2 ABG O2 Saturation ABG Base Excess ABG Potassium VBG pH VBG pCO2 VBG HCO3 VBG Total CO2 VBG O2 Sat (Calc) VBG Base Excess VBG Potassium Glucose Lactate FiO2 Sodium 140 Potassium 4.3 Chloride 105 Carbon Dioxide 26 Anion Gap 13 BUN 31 H Creatinine 1.3 Est GFR ( Amer) > 60 Est GFR (Non-Af Amer) 56 POC Glucose (mg/dL) 152 H Random Glucose 145 H Calcium 9.0 Phosphorus 4.2 Magnesium 2.2 Arterial Blood Potassium Venous Blood Potassium 11/13/17 08:00 WBC RBC Hgb Hct MCV MCH MCHC RDW Plt Count MPV Gran % Lymph % (Auto) Toole % (Auto) Eos % (Auto) Baso % (Auto) Gran # Lymph # (Auto) Toole # (Auto) Eos # (Auto) Baso # (Auto) APTT 51.1 H pCO2 pO2 HCO3 ABG pH ABG Total CO2 ABG O2 Saturation ABG Base Excess ABG Potassium VBG pH VBG pCO2 VBG HCO3 VBG Total CO2 VBG O2 Sat (Calc) VBG Base Excess VBG Potassium Glucose Lactate FiO2 Sodium Potassium Chloride Carbon Dioxide Anion Gap BUN Creatinine Est GFR ( Amer) Est GFR (Non-Af Amer) POC Glucose (mg/dL) Random Glucose Calcium Phosphorus Magnesium Arterial Blood Potassium Venous Blood Potassium EKG/Cardiology Studies: Cardiology / EKG Studies 11/12/17 15:53 EKG [ELECTROCARDIOGRAM] Stat Comment: Reason For Exam: Rapid Critical Care Progress Note - Nutrition Nutrition: Nutrition Category Date Time Status Heart Healthy Diet [DIET] Diets 11/13/17 Lunch Active Assessment/Plan - Assessment and Plan (Free Text) Assessment: Patient seen and examined on rounds, with resident, agree with note with following additions/exceptions: Patient is 62yo Male w/PMH CAD s/p stents admitted for outpatient stress test on 11/09, went into AFib w/ RVR and and had ?GI Bleed. During EGD yesterday desaturated requiring immediate intubation. Patient was extubated shortly after successfully in MICU Currently afebrile, BP stable, comfortable in NAD, AAOx3, sat 98% on 2LNC No major complaints Labs, imaging, chart reviewed HH stable Respiratory failure, s/p extubation DM Anemia Afib ?JUSTIN Recommend: - supp o2 as needed, BIPAP at night, duonebs PRN, IS - NO ID issues, follow up cultures - Switch IV Cardizem to PO cardizem 30mg q6h - A/C as per cardiology - follow up cardiology - BP control - monitor HH - PPI BID - follow up GI, ?repeat EGD - GI ppx - DVT ppx - Stable, transfer to telemetry
--- NOTE | 2017-11-13 12:36 | PN ---
DATE: 11/13/2017 LOCATION: The patient in CCU 129, bed 3. REASON FOR CONSULTATION AND FOLLOWUP: Atrial flutter and fibrillation, coronary artery disease with history of stent insertion, hypertension, cardiomyopathy, diabetes, hyperlipidemia, morbid obesity, status post respiratory failure while having endoscopy yesterday. BRIEF HISTORY: The patient was admitted with atrial fibrillation and found to have cardiomyopathy with LV ejection fraction of 22%. The patient was found anemic, so he went for endoscopy for workup for anemia and during the endoscopy procedure, he developed respiratory distress and hypotension so the patient was intubated for a short while and then procedure was aborted and the patient was later on extubated and transferred to Intensive Care Unit. The patient now conscious, alert; denies any chest pain, shortness of breath or palpitations. PHYSICAL EXAMINATION: VITAL SIGNS: Blood pressure 155/60, respirations 18, pulse 88, patient is afebrile. HEENT: Head is normocephalic. Eyes: Pupils normal. Conjunctivae slightly pale. NECK: JVP low. Carotids equal. THORAX: AP diameter normal. LUNGS: Clear. CARDIOVASCULAR: S1 and S2, irregular rhythm due to atrial fibrillation. ABDOMEN: Protuberant. No organomegaly. EXTREMITIES: No clubbing or cyanosis. LABORATORY DATA: WBC 6.9, hemoglobin 9.2, hematocrit 31.5, platelet 160. Sodium 140, potassium 4.3, BUN 31, creatinine 1.3. Random sugar 152. Calcium 9, phosphorus 4.2, magnesium 2.2. DIAGNOSES: Respiratory failure during the endoscopy procedure and the procedure was aborted. Also, the patient developed hypotension, atrial fibrillation, hypertension, diabetes mellitus, morbid obesity, coronary artery disease, history of angioplasty, cardiomyopathy, ejection fraction 22%, stress test recently on the day of admission was negative for ischemia. PLAN: The patient has severe cardiomyopathy with 4 chamber dilatation. If we do the cardioversion, probably it will not convert; if it converts, it will go back to atrial fibrillation ablation and after ablation will reevaluate the ejection fraction. If it stays 35 or below, then he will need AICD insertion. So right now, the patient is conscious, alert and we are going to put him back on Cardizem 60 four times a day, aspirin 81 mg daily, carvedilol 3.125 b.i.d., metformin 500 b.i.d. The patient to continue on heparin, digoxin 0.25 daily, furosemide 40 daily, atorvastatin 10 daily, Protonix 40 daily, lisinopril 2.5 daily. The patient not on Aldactone because earlier potassium was elevated. I discussed the case with Dr. Nehemias Bella and Dr. Nehemias Bella is going to discuss this with GI. If they do not plan to do any procedure, then the patient will be put on Eliquis and we will arrange ablation later on. We will continue to follow closely. Inez Chahal MD
[2017-11-13] MEDS: Digoxin 250 mcg (0.25 mg) Tab PO SCH (13:10)
--- NOTE | 2017-11-13 23:18 | CON ---
DATE: 11/13/2017 PULMONARY CONSULTATION HISTORY OF PRESENT ILLNESS: Mr. Eller is a 62-year-old gentleman with a very significant previous history. He states that he is approximately 340 pounds and has been snoring for a long time. His has witnessed apneic episodes in the past. He was thinking about seeking help, but never did so. He describes episodes of daytime somnolence, nocturia and sleepiness. 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 He has been heavy all his life, but has lost some weight, but recently put this back on. The patient's case has been discussed at length with the primary medical doctor, Dr. Jose Angel Bella. The patient had at least two episodes of respiratory arrest, one most recently during an endoscopy. The etiology of this has been summarized to be sleep apnea, but clearly not diagnosed as yet. During the last upper endoscopy, the patient became hypoxic all of a sudden which did not allow the physician to complete the procedure. His O2 sat evidently plummeted, The procedure was terminated and the patient was sent to the Intensive Care Unit for further evaluation and treatment. PAST MEDICAL HISTORY: The past history has been discussed with Dr. Bella. The patient has coronary artery stenting procedures in the past, followed by Dr. Chahal. He had new onset atrial fibrillation. He has hypertension, diabetes and morbid obesity. There is no history of chronic obstructive pulmonary disease or neurovascular incidents. The patient states that he is not short of breath whatsoever. He has no history of asthma or emphysema. He has no smoking history. He states that he does not get short of breath when he ambulates. There is no wheezing or cough. He is followed closely by Dr. Chahal and Dr. Bella. OUTPATIENT MEDICATIONS: Include aspirin, Plavix, Lotrel, Lasix, metformin, Prandin, Prilosec, metoprolol, Farxiga. SOCIAL HISTORY: No smoking history FAMILY HISTORY: HTN REVIEW OF SYSTEMS: Daytime somnolence, nocturia and sleepiness. Shortness of breath on ambulation. All other systems negative. PHYSICAL EXAMINATION: GENERAL: On physical exam, the patient is comfortable, in no acute distress, lying in bed. VITAL SIGNS: Stable. Blood pressure 140/80, heart rate 80, respiratory rate 16, O2 sat 96%. HEENT: Normocephalic, atraumatic. Conjunctivae pink. Mucous membranes moist. The patient's hypopharynx shows a Mallampati score 3. NECK: Supple without jugular venous distention, mass, bruit. CHEST: Clear to percussion and auscultation. HEART: Regular rhythm. S1, S2 without murmur, gallop or rub. ABDOMEN: Soft, bowel sounds normoactive, without mass, guarding, rebound or organomegaly. He is obese. EXTREMITIES: Reveal no clubbing, cyanosis. There is trace edema. SKIN: Dry; intact Chest x-ray shows poor inspiration and underpenetration. CLINICAL IMPRESSION: 1. Multiple episodes of hypoxemia, probably secondary to presumed obstructive sleep apnea. 2. Presumed obstructive sleep apnea. 3. Snoring with witnessed apnea. 4. Coronary artery disease. 5. Diabetes mellitus. 6. Atrial fibrillation. PLAN: We will start BiPAP immediately for this patient and follow him closely. A polysomnography will be required to confirm this diagnosis. Once the diagnosis is confirmed, he will obviously be eligible for BiPAP at home. He will need to remain in the Intensive Care Unit until these diagnoses are sorted out. It is clear that this is only one of the several diagnoses that this patient has. One must not assume at this time that the entire episodes are related to sleep apnea and other cardiologic events must be evaluated. The patient should have a pulmonary function study once he is stable as well as a baseline arterial blood gas. Thank you for the opportunity to look into this patient's diagnosis. We will follow him closely in the Intensive Care Unit and decide on the need for further intervention based on how he does on BiPAP. Jay Pineda MD [facility]
[2017-11-14] MEDS: Pantoprazole 40 mg EC Tab PO SCH (05:57)
[2017-11-14] MEDS: Insulin Lispro (humaLOG) LOW Coverage SC SCH (09:02)
--- NOTE | 2017-11-14 11:58 | PN ---
DATE: 11/14/2017 LOCATION: The patient in CCU 129, bed 5. REASON FOR CONSULTATION AND FOLLOWUP: Atrial flutter/fibrillation, cardiomyopathy, coronary artery disease, history of stent insertion, hypertension, diabetes, hyperlipidemia, morbid obesity, status post respiratory failure while having endoscopy. SUBJECTIVE: The patient sitting in chair without any chest pain, shortness of breath or palpitation. The patient has LV ejection fraction of 22%. The patient was found anemic, so he went to Endoscopy for workup for anemia and he developed respiratory distress and hypotension, so endoscopy was aborted and the patient was put on respirator for a short while and then he was extubated and transferred to Intensive Care Unit where the patient is stable now, but he is still in atrial flutter/fibrillation with moderate rate. PHYSICAL EXAMINATION: VITAL SIGNS: Blood pressure 121/56, respirations 17, pulse 74. The patient is afebrile. HEENT: Head is normocephalic. Eyes: Pupils normal. Conjunctivae slightly pale. NECK: JVP low, carotid equal. THORAX: AP diameter normal. CARDIOVASCULAR: S1, S2. LUNGS: Clear. ABDOMEN: Protuberant, no organomegaly. EXTREMITIES: No clubbing, no cyanosis. LABORATORY DATA: Sodium 140, potassium 4.3, BUN 31, creatinine 1.3, random sugar 126. Calcium, phosphorus and magnesium normal. WBC 6.9, hemoglobin 9.2, hematocrit 31.5, platelet 160. DIAGNOSES: Respiratory failure and bradycardia during endoscopy. The procedure was aborted. The patient had severe cardiomyopathy, atrial fibrillation, coronary artery disease, history of stent insertion, hypertension, diabetes mellitus, anemia, history of coronary artery disease, history of angioplasty and stent insertion. Stress test recently done as outpatient was negative for ischemia, but ejection fraction of 22%. 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 The patient already on aspirin 81 daily, Cardizem 60 p.o. four times a day, carvedilol 3.125 b.i.d., metformin 500 b.i.d., digoxin 0.25 daily, furosemide 40 daily, atorvastatin 10 daily, Protonix 40 daily, lisinopril 2.5 mg daily. We will follow. Inez Chahal MD [facility] # [id number]
--- NOTE | 2017-11-14 12:26 | PN ---
DATE: 11/13/2017 The patient was seen this Wednesday morning in Intensive Care. He underwent endoscopy yesterday, Wednesday afternoon and developed obstructive apnea. He was intubated, came to the unit; when he awoke, he was quickly extubated and he has been doing well. The patient has no history of obstructive sleep apnea, although with the neck circumference of 18.5 to 19 and weight of 350 pounds, he is certainly at high risk. I spoke to the nurse and resident on the floor who was with him this morning and said that during the night, they witnessed the episodes of heavy loud snoring and they believe it might have been obstructive sleep apnea. I spoke to the patient at length regarding the need for him to address these medical issues becoming more and more serious as he is now 62 years old. He and the need for action on his morbid obesity now playing a role in his atrial fibrillation, obstructive sleep apnea, coronary artery disease, etc. Medically and hemodynamically, he is doing well and stable, probably ready to leave the unit, but I am unsettled with him leaving in view of these witnessed episodes of obstructive apnea. I have ordered nighttime CPAP and because of the consultation with Dr. Pineda for Pulmonary, I spoke with Dr. Pineda later today. He will see the patient and order settings for his CPAP. I explained to the patient sleep studies will be needed as much as the patient would like to go home. This will certainly hold us up a little bit as I would be able to unsettle with him leaving just now. We will follow and reassess in the morning. Jose Angel Bella MD
--- NOTE | 2017-11-14 12:28 | PN ---
DATE: 11/14/2017 PULMONARY PROGRESS NOTE: SUBJECTIVE: The patient is feeling well this morning. He had a great night sleep longer than he has had in the past. He used BiPAP set up in the Intensive Care Unit. He slept right through without getting up in his usual way. It is clear from his report that the BiPAP has helped him tremendously. Major problem will be to prove that sleep apnea is real so that he can be discharged with a BiPAP/CPAP from the hospital to send him home without the appropriate therapy would be clinically inappropriate. OBJECTIVE: GENERAL: The patient is comfortable as described above. VITAL SIGNS: Stable. O2 sat 97%. NECK: Supple. No JVD. No lymphadenopathy. CHEST: Good air movement. LUNGS: Clear to percussion and auscultation. HEART: Regular rhythm. S1, S2 without murmur, gallop or rub. ABDOMEN: Soft. Bowel sounds normoactive. : Within normal limits EXTREMITIES: Reveal no clubbing, cyanosis or edema. NEUROLOGIC: No focal findings. SKIN: Dry; intact IMPRESSION: 1. Clinically, the patient has obstructive sleep apnea, which requires continuous positive airway pressure. 2. Multiple episodes of hypoxemia during procedure and in the hospital bed consistent with obstructive sleep apnea. 3. Coronary artery disease. 4. Diabetes mellitus. 5. Atrial fibrillation. PLAN: Use BiPAP while the patient remains in the hospital. We will attempt to obtain either in-hospital polysomnography or outpatient CPAP/Trilogy ventilator until sleep studies can be obtained. It would seem inappropriate to send the patient home without the benefit of assistive device during sleep. I have discussed these logistic problems with primary medical doctor, Dr. Jose Angel Bella and the patient at his bedside. We will discuss with Dr. Germain, my associate for the morning. Jay Pineda MD [facility]
[2017-11-14] MEDS: Digoxin 250 mcg (0.25 mg) Tab PO SCH (13:17)
--- NOTE | 2017-11-14 14:24 | CP.PCM.PN ---
<Bradley Mansfield - Last Filed: 11/14/17 14:20> Subjective - Date & Time of Evaluation Date of Evaluation: 11/14/17 Time of Evaluation: 14:20 - Subjective Subjective: GI Fellow PGY4, At bedside with Dr. Muro. Extensive discussion regarding plan. Patient states that he is feeling anxious and does not want to have any procedures at this time. Patient states he is waiting for CPAP before going home. Discussion regarding Eliquis and possibility of bleeding on medication and he is to seek medical attention if he see blood or black stool. He plans to see primary and cardiology doctors as outpt this week. No current complaints. Objective - Vital Signs/Intake and Output Vital Signs (last 24 hours): Temp Pulse Resp BP Pulse Ox 97.4 F L 86 17 133/65 95 11/14/17 04:00 11/14/17 13:18 11/14/17 07:10 11/14/17 13:18 11/14/17 07:10 Intake and Output: 11/14/17 11/14/17 06:59 18:59 Intake Total 250 467 Output Total 1450 Balance 250 -983 - Medications Medications: Current Medications Apixaban (Eliquis) 5 mg PO Q12 [facility] PRN Reason: Protocol Last Admin: 11/14/17 10:42 Dose: 5 mg Aspirin (Aspirin Chewable) 81 mg PO DAILY [facility] Last Admin: 11/14/17 10:41 Dose: 81 mg Atorvastatin Calcium (Lipitor) 10 mg PO DIN [facility] Last Admin: 11/13/17 17:07 Dose: 10 mg Carvedilol (Coreg) 3.125 mg PO BID [facility] Last Admin: 11/14/17 10:41 Dose: 3.125 mg Dextrose (Dextrose 50% Inj) 0 ml IV STAT PRN; Protocol PRN Reason: Hypoglycemia Protocol Digoxin (Lanoxin) 0.25 mg PO 1400 [facility] Last Admin: 11/14/17 13:17 Dose: 0.25 mg Diltiazem HCl (Cardizem) 60 mg PO QID [facility] Last Admin: 11/14/17 13:18 Dose: 60 mg Furosemide (Lasix) 40 mg PO DAILY [facility] Last Admin: 11/14/17 10:42 Dose: 40 mg Dextrose (Dextrose 5% In Water 1000 Ml) 1,000 mls @ 0 mls/hr IV .Q0M PRN; Protocol; Per Protocol PRN Reason: Hypoglycemia Protocol Lisinopril (Zestril) 2.5 mg PO DAILY [facility] Last Admin: 11/14/17 10:40 Dose: 2.5 mg Metformin HCl (Glucophage) 500 mg PO BID [facility] Last Admin: 11/14/17 11:45 Dose: 500 mg Pantoprazole Sodium (Protonix Ec Tab) 40 mg PO 0600 [facility] Last Admin: 11/14/17 05:57 Dose: 40 mg - Labs Labs: 11/13/17 05:00 11/13/17 05:00 PT 13.1 SECONDS (9.4-12.5) H 11/12/17 07:30 INR 1.14 11/12/17 07:30 APTT 51.1 Seconds (25.1-36.5) H 11/13/17 08:00 - Constitutional Appears: No Acute Distress - Head Exam Head Exam: NORMAL INSPECTION - Eye Exam Eye Exam: EOMI, Normal appearance - ENT Exam ENT Exam: Mucous Membranes Moist - Cardiovascular Exam Cardiovascular Exam: Irregular Rhythm - GI/Abdominal Exam GI & Abdominal Exam: Soft, Normal Bowel Sounds. absent: Tenderness - Extremities Exam Extremities Exam: Normal Inspection - Neurological Exam Neurological Exam: Alert, Awake, Oriented x3 - Psychiatric Exam Psychiatric exam: Normal Affect, Normal Mood - Skin Skin Exam: Normal Color Assessment and Plan - Assessment and Plan (Free Text) Assessment: 62 year old male with a past medical history significant for HTN, morbid obesity , DM2 ,diabetic foot ulcer, venous stasis of lower extremities, CBD stone, PUD, who presents for new onset atrial fibrillation. GI was consulted for acute drop in hemoglobin. FOBT negative. Patient is currently on a heparin drip and without GI complaints such as abdominal pain, N/V/D/C, hematemesis, melena or hematochezia. Plan: -EGD 11/12/17 aborted due to acute hypoxia. Small amount of blood observed in distal stomach/duodenum. Cannot comment on source as exam aborted quickly into procedure. He will need to be intubated if we are to evaluate upper and lower GI system in the future. -H/H stable -Continue to monitor with serial CBC's -Heart Healthy Moderate Carbohydrate Consistent Diet -Continue daily PPI. Avoid NSAIDs. -No planned endoscopic procedures at this time, patient wishes to go home. -All risks and benefits from GI perspective explained to patient regarding going home, not having the procedure at this time, avoiding NSAIDs, need for intubation for future procedures, Eliquis medication and the need for close follow up. <Sarah Muro V - Last Filed: 11/15/17 00:29> Objective - Vital Signs/Intake and Output Vital Signs (last 24 hours): Temp Pulse Resp BP Pulse Ox 98.1 F 73 17 154/67 H 95 11/14/17 18:00 11/14/17 18:00 11/14/17 07:10 11/14/17 17:04 11/14/17 07:10 Intake and Output: 11/14/17 11/15/17 18:59 06:59 Intake Total 1677 Output Total 3350 Balance -1673 - Medications Medications: Current Medications Apixaban (Eliquis) 5 mg PO Q12 [facility] PRN Reason: Protocol Last Admin: 11/14/17 10:42 Dose: 5 mg Aspirin (Aspirin Chewable) 81 mg PO DAILY [facility] Last Admin: 11/14/17 10:41 Dose: 81 mg Atorvastatin Calcium (Lipitor) 10 mg PO DIN [facility] Last Admin: 11/14/17 17:04 Dose: 10 mg Carvedilol (Coreg) 3.125 mg PO BID [facility] Last Admin: 11/14/17 17:04 Dose: 3.125 mg Dextrose (Dextrose 50% Inj) 0 ml IV STAT PRN; Protocol PRN Reason: Hypoglycemia Protocol Digoxin (Lanoxin) 0.25 mg PO 1400 [facility] Last Admin: 11/14/17 13:17 Dose: 0.25 mg Diltiazem HCl (Cardizem) 60 mg PO QID [facility] Last Admin: 11/14/17 17:04 Dose: 60 mg Furosemide (Lasix) 40 mg PO DAILY [facility] Last Admin: 11/14/17 10:42 Dose: 40 mg Dextrose (Dextrose 5% In Water 1000 Ml) 1,000 mls @ 0 mls/hr IV .Q0M PRN; Protocol; Per Protocol PRN Reason: Hypoglycemia Protocol Lisinopril (Zestril) 2.5 mg PO DAILY [facility] Last Admin: 11/14/17 10:40 Dose: 2.5 mg Metformin HCl (Glucophage) 500 mg PO BID [facility] Last Admin: 09/23/18 17:04 Dose: 500 mg Pantoprazole Sodium (Protonix Ec Tab) 40 mg PO 0600 [facility] Last Admin: 11/14/17 05:57 Dose: 40 mg - Labs Labs: 11/13/17 05:00 11/13/17 05:00 PT 13.1 SECONDS (9.4-12.5) H 11/12/17 07:30 INR 1.14 11/12/17 07:30 APTT 51.1 Seconds (25.1-36.5) H 11/13/17 08:00 Attending/Attestation - Attestation I have personally seen and examined this patient.: Yes I have fully participated in the care of the patient.: Yes I have reviewed all pertinent clinical information, including history, physical exam and plan: Yes Notes (Text): This is an addendum to GI progress report dictated by the GI Fellow.The patient was seen and examined earlier. Medical records, lab studies, imagings were reviewed. Last 24 hours events reviewed. Agreed with the above treatment plan as outlined in GI Fellow 's notes with the addition of the following Had a detailed discussion with PCP and the patient Patient is awaiting for C.pap machine This patient with LILY, A.fib needs both anti-platelet therapy and anticoagulation Patient is on eliquis now 11/14/17 20:04 11/15/17 00:26
--- NOTE | 2017-11-14 21:05 | PN ---
DATE: 11/14/2017 DAILY PROGRESS NOTE SUBJECTIVE: The patient was seen this Wednesday morning in Intensive Care, Coronary Care, bed 5. He is sitting out of bed, in a chair. He slept well with CPAP on and for the first time in a longtime was able to sleep through the night without waking up almost hourly as he typically has been doing at home. PHYSICAL EXAMINATION HEENT: Head and neck essentially unremarkable. LUNGS: Show good air exchange right and left. Kyphotic posture HEART: Regular. EXTREMITIES: Trace edema of morbid obesity. ASSESSMENT AND PLAN: The patient was also visited by Dr. Pineda during my visit with him. Dr. 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 I am concerned with him going home without a CPAP machine. They will work on this tomorrow and we will need to talk with social insurance analyst and case management about getting a emergent order through [facility] for a home CPAP machine. He remains in atrial fibrillation. Heart rate is still irregular, but controlled rate. Again I spoke with the patient at length regarding the importance of lifestyle changes and diet and weight reduction and posture exercises. Jose Angel Bella MD MTDD
--- NOTE | 2017-11-15 08:03 | PN ---
DATE: 11/15/2017 PULMONARY NOTE DICTATION SUBJECTIVE: The patient appears very comfortable this morning. He is not short of breath at rest. PHYSICAL EXAMINATION: VITAL SIGNS: Temperature is 98.1, pulse 66, respirations 18, blood pressure 154/67. Oxygen saturation on room air is 97%. HEENT: Normocephalic, atraumatic. No JVD. CARDIOVASCULAR: Positive S1, S2. No S3 gallop. LUNGS: Clear bilaterally. EXTREMITIES: Mild edema. No cyanosis, no clubbing. Calves are nontender to palpation. GI: Abdomen is soft, nontender and nondistended. Bowel sounds are positive. SKIN: No acute rash. NEUROLOGIC: Exam limited at the present time. IMPRESSION: 1. Rapid atrial fibrillation. 2. Extensive coronary artery disease, status post multiple stents. 3. Probable obstructive sleep apnea. 4. Status post respiratory failure. 5. Anemia. PLAN: I did discuss the case with the night nurse at length. I have also reviewed the chart at length. I have also discussed the case with my partner, Dr. Pineda, this morning at length. The patient appears very comfortable this morning. He is not short of breath at rest. His lungs are clear on physical exam. Oxygen saturation on room air is 97%. Again, I did discuss the case with Dr. Pineda at length. Apparently, the patient did experience oxygen desaturation while sleeping. He will definitely need a polysomnogram in the very near future. The polysomnogram will have to be as an outpatient. The patient can remain on oxygen at night. However, I do not know the feasibility of sending the patient home with a sleep machine prior to his testing. I will speak with my office staff this morning. Inputs by GI and Cardiology are noted. The patient's ventricular rate is well controlled at this point in time. Clinical status of the patient is significantly improved - compared to a few days ago. I will discuss the above with the entire ICU team in the next few moments. I will also discuss the above with the attending physician. Joo Germain MD [facility]
--- NOTE | 2017-11-15 12:13 | CP.PCM.PN ---
<Moi Clark - Last Filed: 11/15/17 12:10> Subjective - Date & Time of Evaluation Date of Evaluation: 11/15/17 Time of Evaluation: 12:10 - Subjective Subjective: Tarun Clark Internal Medicine Resident - Progress note for GI service Patient seen and examined this AM. No acute events reported overnight. Patient without complaints at time of interview. Patient reports flatus, passage of bm, and toleration of diet. Patient to discuss ongoing case with his PMD regarding further workup. Objective - Vital Signs/Intake and Output Vital Signs (last 24 hours): Temp Pulse Resp BP Pulse Ox 98.1 F 111 H 13 156/88 H 97 11/14/17 18:00 11/15/17 10:06 11/15/17 08:50 11/15/17 10:06 11/15/17 08:50 - Medications Medications: Current Medications Apixaban (Eliquis) 5 mg PO Q12 [facility] PRN Reason: Protocol Last Admin: 11/15/17 10:06 Dose: 5 mg Aspirin (Aspirin Chewable) 81 mg PO DAILY [facility] Last Admin: 11/15/17 10:05 Dose: 81 mg Atorvastatin Calcium (Lipitor) 10 mg PO DIN [facility] Last Admin: 11/14/17 17:04 Dose: 10 mg Carvedilol (Coreg) 3.125 mg PO BID [facility] Last Admin: 11/15/17 10:06 Dose: 3.125 mg Dextrose (Dextrose 50% Inj) 0 ml IV STAT PRN; Protocol PRN Reason: Hypoglycemia Protocol Digoxin (Lanoxin) 0.25 mg PO 1400 [facility] Last Admin: 11/14/17 13:17 Dose: 0.25 mg Diltiazem HCl (Cardizem) 60 mg PO QID [facility] Last Admin: 11/15/17 10:05 Dose: 60 mg Furosemide (Lasix) 40 mg PO DAILY [facility] Last Admin: 11/15/17 10:05 Dose: 40 mg Dextrose (Dextrose 5% In Water 1000 Ml) 1,000 mls @ 0 mls/hr IV .Q0M PRN; Protocol; Per Protocol PRN Reason: Hypoglycemia Protocol Lisinopril (Zestril) 2.5 mg PO DAILY [facility] Last Admin: 11/15/17 10:06 Dose: 2.5 mg Metformin HCl (Glucophage) 500 mg PO BID [facility] Last Admin: 11/15/17 10:05 Dose: 500 mg Pantoprazole Sodium (Protonix Ec Tab) 40 mg PO 0600 [facility] Last Admin: 11/14/17 05:57 Dose: 40 mg - Labs Labs: 11/13/17 05:00 11/13/17 05:00 PT 13.1 SECONDS (9.4-12.5) H 11/12/17 07:30 INR 1.14 11/12/17 07:30 APTT 51.1 Seconds (25.1-36.5) H 11/13/17 08:00 - Constitutional Appears: Non-toxic, No Acute Distress - Head Exam Head Exam: ATRAUMATIC, NORMAL INSPECTION, NORMOCEPHALIC - Eye Exam Eye Exam: EOMI, PERRL - ENT Exam ENT Exam: Mucous Membranes Moist - Respiratory Exam Respiratory Exam: Clear to Ausculation Bilateral, NORMAL BREATHING PATTERN - Cardiovascular Exam Cardiovascular Exam: REGULAR RHYTHM, +S1, +S2 - GI/Abdominal Exam GI & Abdominal Exam: Soft, Normal Bowel Sounds. absent: Firm, Guarding, Rigid, Tenderness - Extremities Exam Extremities Exam: Full ROM. absent: Calf Tenderness - Back Exam Back Exam: absent: CVA tenderness (L), CVA tenderness (R) - Neurological Exam Neurological Exam: Alert, Awake, Normal Gait, Oriented x3 Neuro motor strength exam: Left Upper Extremity: 5, Right Upper Extremity: 5, Left Lower Extremity: 5, Right Lower Extremity: 5 - Psychiatric Exam Psychiatric exam: Normal Affect, Normal Mood - Skin Skin Exam: Dry, Intact Assessment and Plan - Assessment and Plan (Free Text) Assessment: 62 year old male with a past medical history significant for HTN, morbid obesity , DM2 ,diabetic foot ulcer, venous stasis of lower extremities, CBD stone, PUD, who presents for new onset atrial fibrillation. GI was consulted for acute drop in hemoglobin. FOBT negative. Patient is currently on a heparin drip and without GI complaints such as abdominal pain, N/V/D/C, hematemesis, melena or hematochezia. Plan: Hematemesis Melena Hematochezia -EGD 11/12/17 aborted due to acute hypoxia. Small amount of blood observed in distal stomach/duodenum. Cannot comment on source as exam aborted quickly into procedure. He will need to be intubated if we are to evaluate upper and lower GI system in the future. -H/H stable -Serial CBC's -Heart Healthy Moderate Carbohydrate Consistent Diet -Continue daily PPI. Avoid NSAIDs. - No further endoscopy planned at this time - Patient with LILY, AFib needing both anti-platelet therpay and AC -All risks and benefits from GI perspective explained to patient regarding going home, not having the procedure at this time, avoiding NSAIDs, need for intubation for future procedures, Eliquis medication and the need for close follow up. <Bhaskar,Kovil V - Last Filed: 11/15/17 20:24> Objective - Vital Signs/Intake and Output Vital Signs (last 24 hours): Temp Pulse Resp BP Pulse Ox 98.2 F 101 H 24 117/50 L 93 L 11/15/17 12:00 11/15/17 19:10 11/15/17 19:10 11/15/17 18:06 11/15/17 18:00 Intake and Output: 11/15/17 11/16/17 18:59 06:59 Intake Total 1000 Output Total 2350 Balance -1350 - Medications Medications: Current Medications Apixaban (Eliquis) 5 mg PO Q12 [facility] PRN Reason: Protocol Last Admin: 11/15/17 10:06 Dose: 5 mg Aspirin (Aspirin Chewable) 81 mg PO DAILY [facility] Last Admin: 11/15/17 10:05 Dose: 81 mg Atorvastatin Calcium (Lipitor) 10 mg PO DIN [facility] Last Admin: 11/15/17 18:06 Dose: 10 mg Carvedilol (Coreg) 3.125 mg PO BID [facility] Last Admin: 11/15/17 18:06 Dose: 3.125 mg Dextrose (Dextrose 50% Inj) 0 ml IV STAT PRN; Protocol PRN Reason: Hypoglycemia Protocol Digoxin (Lanoxin) 0.25 mg PO 1400 [facility] Last Admin: 11/15/17 13:17 Dose: 0.25 mg Diltiazem HCl (Cardizem) 60 mg PO QID [facility] Last Admin: 11/15/17 18:05 Dose: 60 mg Furosemide (Lasix) 40 mg PO DAILY [facility] Last Admin: 11/15/17 10:05 Dose: 40 mg Dextrose (Dextrose 5% In Water 1000 Ml) 1,000 mls @ 0 mls/hr IV .Q0M PRN; Protocol; Per Protocol PRN Reason: Hypoglycemia Protocol Lisinopril (Zestril) 2.5 mg PO DAILY [facility] Last Admin: 11/15/17 10:06 Dose: 2.5 mg Metformin HCl (Glucophage) 500 mg PO BID [facility] Last Admin: 11/15/17 18:07 Dose: 500 mg Pantoprazole Sodium (Protonix Ec Tab) 40 mg PO 0600 [facility] Last Admin: 11/14/17 05:57 Dose: 40 mg - Labs Labs: 11/13/17 05:00 11/13/17 05:00 PT 13.1 SECONDS (9.4-12.5) H 11/12/17 07:30 INR 1.14 11/12/17 07:30 APTT 51.1 Seconds (25.1-36.5) H 11/13/17 08:00 Attending/Attestation - Attestation I have personally seen and examined this patient.: Yes I have fully participated in the care of the patient.: Yes I have reviewed all pertinent clinical information, including history, physical exam and plan: Yes Notes (Text): This is an addendum to GI followup report dictated by the Personal Trainer. The patient was seen and evaluated earlier. Medical records, lab studies, imagings were reviewed. Last 24 hours events reviewed. Agreed with the above treatment plan as outlined in Personal Trainer 's notes with the addition of the following Patient is on Eliqis HCT stable If HCT drops consider EGD after intubation Patient was on taking NSAIDs and combination with Eliqis could be the cause for this patient's GI bleeding Continue PPI Need elective EGD and colonoscopy after optimization 11/15/17 20:22
[2017-11-15] MEDS: Digoxin 250 mcg (0.25 mg) Tab PO SCH (13:17)
[2017-11-15] MEDS ORDERED: Digoxin 500 mcg/2ml (0.5 mg/2ml) Inj IVP ONE (13:33)
[2017-11-15] MEDS ORDERED: Digoxin 500 mcg/2ml (0.5 mg/2ml) Inj IVP STA (15:03)
--- NOTE | 2017-11-15 16:12 | PN ---
DATE: 11/15/2017 REASON FOR CONSULTATION AND FOLLOWUP: Atrial fibrillation/flutter, cardiomyopathy, coronary artery disease, history of stent in the past, status post respiratory failure during endoscopy. SUBJECTIVE: The patient denies any chest pain, shortness of breath or any palpitations. OBJECTIVE: GENERAL: Not in apparent distress. VITAL SIGNS: Temperature afebrile, heart rate 130, blood pressure 114/55. HEENT: PERRLA. Extraocular muscles intact. NECK: Supple. No carotid bruit or thyromegaly. HEART: S1, S2 regular. CHEST: Clear to auscultation. ABDOMEN: Soft. EXTREMITIES: Clubbing and cyanosis negative. LABORATORY DATA: Blood workup as follows: WBC 6.8, hemoglobin 9.2, hematocrit 31.5, platelet count 160. Chemistry shows sodium 140, potassium 4.3, chloride 105, carbon dioxide , anion gap of 13, BUN 31, creatinine 1.3. IMPRESSION: A 62-year-old morbidly obese male with past medical history significant for coronary artery disease, status post stent in the past, admitted with new-onset atrial fibrillation/flutter, rapid, rate is well controlled. The patient is also anemic, went to Endoscopy because of severe anemia. During endoscopy, the patient noted to have respiratory distress and hypotension. Procedure was aborted, intubated, now the patient is in the ICU. RECOMMENDATIONS: Aggressively control the heart rate, start oral anticoagulation; once the patient is stable, possibly discharge home, consider EP evaluation and radiofrequency ablation for atrial flutter/fibrillation. The patient has decreased LV function. The patient will get benefit from the radiofrequency ablation and once the rate becomes stable, reassess his left ventricle function in 3 to 6 months. If it still remains below 35, consider AICD. Discussed with the patient. Discussed with the patient's . Now the plan is we will control the heart rate. We will follow with you. We will continue Cardizem 60 mg three times a day. We will continue Coreg, continue low dose of lisinopril. We will get 0.25 IV digoxin one dose and we will see the heart rate maintains and we will check digoxin level tomorrow. Thank you Dr. Bella for providing us the opportunity in taking care of the patient, Chaparro Eller. Inez Guillen MD [facility] # [id number]
--- NOTE | 2017-11-15 16:47 | PN ---
DATE: 11/15/2017 DAILY PROGRESS NOTE The patient is a 62-year-old male with a history of hypertension, diabetes, morbid obesity, status post PTCA in 11/2016, history of a diabetic foot ulcer with venous stasis and venous insufficiency in the lower extremities, who was admitted to the [facility] on 11/09/2017 with new-onset atrial fibrillation and a rapid ventricular response. He was followed by his microbiology instructor, treated with beta-blockers, calcium channel blockers, and his heart rate had slowed. It was also noted that his hemoglobin had dropped from 9.7 on admission to 8.5 the following day. He was scheduled for colonoscopy with Dr. Muro, the nutrition counselor. However, while inducing the anesthesia, the patient's O2 saturation had dropped to about 50. The procedure was canceled. The patient was intubated and admitted to the Intensive Care Unit. Here in the Intensive Care Unit, the patient was quickly extubated and was doing well. Once again, however, overnight while asleep with oxygen in place, his oxygen saturation dropped into the low 80s. When seen today, the patient is sitting up in a chair. He is awake, alert and oriented. His respirations are easy. He denies any discomfort. He was allowed to ambulate to the bathroom in the Intensive Care Unit and did well. He was steady on his feet. At this point in time, we are trying to arrange for a CPAP machine, so the patient could take it home with him. The patient already proved that by being simply on oxygen overnight, his pulse oxygenation level still falls. His atrial fibrillation rate is controlled on his current medicines. He is continued to be followed by Dr. Chahal. The case to be discussed with Dr. Germain, the radiologist. As per Dr. Muro, the patient will undergo colonoscopy as needed as an outpatient after his cardiopulmonary situation has stabilized and he will probably require full anesthesia and intubation at the time of that colonoscopy. Juliano Bella MD
[2017-11-16] MEDS: Pantoprazole 40 mg EC Tab PO SCH (06:45)
[2017-11-16 07:31] LABS: BASO # 0.03 K/mm3 (0.0-2.0); BASO % 0.5 % (0.0-3.0); EOS # 0.4 (0.0-0.7); EOS % 7.4 % (1.5-5.0); GRAN # 3.74 (1.4-6.5); GRAN % 63.4 % (50.0-68.0); LYMPH # 1.1 (1.2-3.4); LYMPH % 18.4 % (22.0-35.0); MEAN CELL VOLUME 82.8 fl (80.0-105.0); MEAN CORPUSCULAR HEMOGLOBIN 24.9 pg (25.0-35.0); MEAN CORPUSCULAR HGB CONC 30.1 g/dl (31.0-37.0); MEAN PLATELET VOLUME 9.3 fl (7.0-11.0); MONO # 0.6 (0.1-0.6); MONO % 10.3 % (1.0-6.0); RBC 4.01 10^6/uL (3.5-6.1); RED CELL DISTRIBUTION WIDTH 16.3 % (11.5-14.5); WHITE BLOOD COUNT 5.9 10^3/ul (4.5-11.0)
[2017-11-16 07:59] LABS: ALB/GLOB RATIO 1.2 (1.1-1.8); ALBUMIN 3.7 g/dL (3.0-4.8); ALT/SGPT 31 U/L (7-56); AST/SGOT 31 U/L (17-59); BLOOD UREA NITROGEN 26 mg/dL (7-21); CALCIUM 8.8 mg/dL (8.4-10.5); GFR NON-AFRICAN AMERICAN > 60
--- NOTE | 2017-11-16 08:27 | PN ---
DATE: 11/16/2017 PULMONARY NOTE SUBJECTIVE: The patient appears very comfortable this morning. He is not short of breath at rest. PHYSICAL EXAMINATION: VITAL SIGNS: Temperature is 98.8, pulse 62, respirations 16, blood pressure 141/76. Oxygen saturation on nasal cannula is 98%. HEENT: Normocephalic, atraumatic. No JVD. CARDIOVASCULAR: Positive S1, S2. No S3 gallop. LUNGS: Clear bilaterally. EXTREMITIES: Mild edema. No cyanosis or clubbing. Calves are nontender to palpation. GASTROINTESTINAL: Abdomen is soft, nontender, and nondistended. Bowel sounds are positive. SKIN: No acute rash. NEUROLOGIC: Limited at the present time. IMPRESSION: 1. Rapid atrial fibrillation. 2. Extensive coronary artery disease, status post multiple cardiac stents. 3. Probable obstructive sleep apnea. 4. Status post respiratory failure. 5. Anemia. PLAN: The patient appears very comfortable this morning. He is not short of breath at rest. He does state to feeling much better overall. I did discuss the case with the night nurse at length. The night nurse stated that the patient had a very good night. However, the night nurse did inform me that the patient's oxygen saturation-- on room air--- did dip to 86% while the patient was sleeping. On physical exam, his lungs remain clear. There is no significant alveolar-arterial gradient. Inputs by Cardiology and GI are also noted. I did have a long discussion with Glassware Maker Demonstrator yesterday. The [place] operations representative will be in the hospital today, to assess the feasibility of possibly sending the patient home on a trilogy ventilator - prior to his sleep testing. Hopefully, we will at least be able to send the patient home on oxygen therapy. In addition, I did contact my office yesterday. We are arranging a sleep study as soon as possible. Clinical status of the patient is significantly improved overall. I will discuss the above with the attending physician. Joo Germain MD [facility]
--- NOTE | 2017-11-16 10:09 | CARD ---
APPROVED REPORT Date of service: 11/16/2017 EKG Measurement Heart [id number] <Conclusion> Atrial flutter with variable AV block Right bundle branch block Anteroseptal infarct, age undetermined NSSTW changes No change except the rate is slower
--- NOTE | 2017-11-16 14:00 | PN ---
DATE: 11/16/2017 DAILY PROGRESS NOTE SUBJECTIVE: The patient was seen this Wednesday at the noon hour in room 276, bed 1 with his family present and his aunt, a registered nurse from [facility]. The patient is sitting on the edge of the bed, awake, alert and clear. Finishing his lunch. Again, I commented to him about his posture with his forward lean and kyphosis and general poor posture related to morbid obesity. PHYSICAL EXAMINATION: HEAD AND NECK: Unremarkable except for the morbid obesity. Neck circumference is 21 inches. LUNGS: Essentially clear with decreased respiratory volume, both right and left. BACK: Shows obvious kyphosis as noted above. HEART: Irregular, not tachycardic. ABDOMEN: Morbidly obese. EXTREMITIES: Showed no edema. IMPRESSION: Acute respiratory failure in a 62-year-old male with multiple risk factors including male over 60, neck circumference over 18 inches, snoring audible through closed doors, witnessed these symptoms at night while sleeping. In addition to that, the patient had respiratory failure during endoscopy requiring intubation and admission to Intensive Care Unit. In addition to that, after extubated, in while in the Intensive Care Unit, his respiratory failure desaturated to 80%. Therefore, prior to my allowing him for discharge to home, I need to be certain that measures are taken to prevent further episodes of respiratory failure and hypoxia. He has documented CO2 retention and documented hypoxia while here in the hospital. The reason for this is the kyphosis and respiratory failure. The respiratory failure is due to his kyphosis and desaturating with the rise in pCO2 overnight. The risk of him going home without any type of mechanical assistance in respiration is very concerning and very real risk for sudden overnight due to acute respiratory failure. My concern with his hypoxia is that if oxygen is delivered, this may further reduce his hypoxic drive making it a profound and unmistakable need for noninvasive ventilation via Trilogy AVAPS in AE mode. This case was discussed with Case Management. They are aware of my concern. I spoke with the patient and his family. Of great concern comes liability risks in this issue as we have 2 witnessed episodes here in the hospital, one with anesthesia requiring intubation and the other while being monitored in the Intensive Care Unit bed making it absolutely absurd for me to discharge him to home without these precautionary measures being taken place. Jose Angel Bella MD [facility] # [id number] [facility]
[2017-11-16] MEDS: Digoxin 250 mcg (0.25 mg) Tab PO SCH (14:19)
--- NOTE | 2017-11-16 14:19 | CP.PCM.PN ---
<Bradley Mansfield - Last Filed: 11/16/17 17:44> Subjective - Date & Time of Evaluation Date of Evaluation: 11/16/17 Time of Evaluation: 14:15 - Subjective Subjective: GI Fellow PGY4 Patient is feeling well. HR still elevated. He is waiting for CPAP machine to take home. Objective - Vital Signs/Intake and Output Vital Signs (last 24 hours): Temp Pulse Resp BP Pulse Ox 98.2 F 140 H 20 134/69 98 11/16/17 12:00 11/16/17 12:43 11/16/17 12:00 11/16/17 12:00 11/16/17 06:00 - Medications Medications: Current Medications Apixaban (Eliquis) 5 mg PO Q12 [facility]; Protocol Last Admin: 11/16/17 09:23 Dose: 5 mg Aspirin (Aspirin Chewable) 81 mg PO DAILY [facility] Last Admin: 11/16/17 09:23 Dose: 81 mg Atorvastatin Calcium (Lipitor) 10 mg PO DIN [facility] Last Admin: 11/15/17 18:06 Dose: 10 mg Carvedilol (Coreg) 3.125 mg PO BID [facility] Last Admin: 11/16/17 09:23 Dose: 3.125 mg Dextrose (Dextrose 50% Inj) 0 ml IV STAT PRN; Protocol PRN Reason: Hypoglycemia Protocol Digoxin (Lanoxin) 0.25 mg PO 1400 [facility] Last Admin: 11/15/17 13:17 Dose: 0.25 mg Diltiazem HCl (Cardizem) 60 mg PO QID [facility] Stop: 11/16/17 23:59 Last Admin: 11/16/17 09:22 Dose: 60 mg Diltiazem HCl (Cardizem Cd) 180 mg PO DAILY [facility] Furosemide (Lasix) 40 mg PO DAILY [facility] Last Admin: 11/16/17 09:23 Dose: 40 mg Dextrose (Dextrose 5% In Water 1000 Ml) 1,000 mls @ 0 mls/hr IV .Q0M PRN; Protocol PRN Reason: Hypoglycemia Protocol Lisinopril (Zestril) 2.5 mg PO DAILY [facility] Last Admin: 11/16/17 09:23 Dose: 2.5 mg Metformin HCl (Glucophage) 500 mg PO BID [facility] Last Admin: 11/16/17 09:23 Dose: 500 mg Pantoprazole Sodium (Protonix Ec Tab) 40 mg PO 0600 [facility] Last Admin: 11/16/17 06:45 Dose: 40 mg Verapamil HCl (Verapamil Inj) 2.5 mg IVP Q6 PRN PRN Reason: Heart rate Last Admin: 11/16/17 12:43 Dose: 2.5 mg - Labs Labs: 11/16/17 06:20 11/16/17 06:20 PT 13.1 SECONDS (9.4-12.5) H 11/12/17 07:30 INR 1.14 11/12/17 07:30 APTT 51.1 Seconds (25.1-36.5) H 11/13/17 08:00 - Constitutional Appears: Non-toxic, No Acute Distress - Head Exam Head Exam: NORMAL INSPECTION - Eye Exam Eye Exam: Normal appearance - ENT Exam ENT Exam: Mucous Membranes Moist - Respiratory Exam Respiratory Exam: Clear to Ausculation Bilateral, NORMAL BREATHING PATTERN - Cardiovascular Exam Cardiovascular Exam: Irregular Rhythm, +S1, +S2 - GI/Abdominal Exam GI & Abdominal Exam: Soft, Normal Bowel Sounds. absent: Tenderness - Extremities Exam Extremities Exam: Normal Inspection - Neurological Exam Neurological Exam: Alert, Awake, Oriented x3 - Psychiatric Exam Psychiatric exam: Normal Affect, Normal Mood - Skin Skin Exam: Normal Color Assessment and Plan - Assessment and Plan (Free Text) Assessment: 62 year old male with a past medical history significant for HTN, morbid obesity, DM2 ,diabetic foot ulcer, venous stasis of lower extremities, CBD stone, PUD, who presents for new onset atrial fibrillation. GI was consulted for acute drop in hemoglobin. FOBT negative. Patient is currently on a heparin drip and without GI complaints such as abdominal pain, N/V/D/C, hematemesis, melena or hematochezia. Plan: -EGD 11/12/17 aborted due to acute hypoxia. Small amount of blood observed in distal stomach/duodenum. Cannot comment on source as exam aborted quickly into procedure. He will need to be intubated if we are to evaluate upper and lower GI system in the future. -H/H stable -Continue to monitor with serial CBC's -Heart Healthy Moderate Carbohydrate Consistent Diet -Continue daily PPI. Avoid NSAIDs. -No planned endoscopic procedures at this time, patient wishes to go home. -All risks and benefits from GI perspective explained to patient regarding going home, not having the procedure at this time, avoiding NSAIDs, need for intubation for future procedures, Eliquis medication and the need for close follow up. -He can follow up with Dr. Muro as an outpatient in 3-5 weeks. <Sarah Muro V - Last Filed: 11/16/17 22:38> Objective - Vital Signs/Intake and Output Vital Signs (last 24 hours): Temp Pulse Resp BP Pulse Ox 98.2 F 75 20 107/58 L 96 11/16/17 18:00 11/16/17 21:34 11/16/17 18:00 11/16/17 18:00 11/16/17 18:00 Intake and Output: 11/16/17 11/17/17 18:59 06:59 Intake Total 1300 Output Total 4 Balance 1296 - Medications Medications: Current Medications Apixaban (Eliquis) 5 mg PO Q12 [facility]; Protocol Last Admin: 11/16/17 21:34 Dose: 5 mg Aspirin (Aspirin Chewable) 81 mg PO DAILY [facility] Last Admin: 11/16/17 09:23 Dose: 81 mg Atorvastatin Calcium (Lipitor) 10 mg PO DIN [facility] Last Admin: 11/16/17 17:37 Dose: 10 mg Carvedilol (Coreg) 3.125 mg PO BID [facility] Last Admin: 11/16/17 17:37 Dose: 3.125 mg Dextrose (Dextrose 50% Inj) 0 ml IV STAT PRN; Protocol PRN Reason: Hypoglycemia Protocol Digoxin (Lanoxin) 0.25 mg PO 1400 [facility] Last Admin: 11/16/17 14:19 Dose: 0.25 mg Diltiazem HCl (Cardizem) 60 mg PO QID [facility] Stop: 11/16/17 23:59 Last Admin: 11/16/17 21:34 Dose: 60 mg Diltiazem HCl (Cardizem Cd) 180 mg PO DAILY [facility] Furosemide (Lasix) 40 mg PO DAILY [facility] Last Admin: 11/16/17 09:23 Dose: 40 mg Dextrose (Dextrose 5% In Water 1000 Ml) 1,000 mls @ 0 mls/hr IV .Q0M PRN; Protocol PRN Reason: Hypoglycemia Protocol Lisinopril (Zestril) 2.5 mg PO DAILY [facility] Last Admin: 11/16/17 09:23 Dose: 2.5 mg Metformin HCl (Glucophage) 500 mg PO BID [facility] Last Admin: 11/16/17 17:37 Dose: 500 mg Pantoprazole Sodium (Protonix Ec Tab) 40 mg PO 0600 [facility] Last Admin: 11/16/17 06:45 Dose: 40 mg Verapamil HCl (Verapamil Inj) 2.5 mg IVP Q6 PRN PRN Reason: Heart rate Last Admin: 11/16/17 12:43 Dose: 2.5 mg - Labs Labs: 11/16/17 06:20 11/16/17 06:20 PT 13.1 SECONDS (9.4-12.5) H 11/12/17 07:30 INR 1.14 11/12/17 07:30 APTT 51.1 Seconds (25.1-36.5) H 11/13/17 08:00 Attending/Attestation - Attestation I have personally seen and examined this patient.: Yes I have fully participated in the care of the patient.: Yes I have reviewed all pertinent clinical information, including history, physical exam and plan: Yes Notes (Text): This is an addendum to GI progress report dictated by the GI Fellow.The patient was seen and examined earlier. Medical records, lab studies, imagings were reviewed. Last 24 hours events reviewed. Agreed with the above treatment plan as outlined in GI Fellow 's notes with the addition of the following HCT stable Tolerating diet On PPI and Eliquis Advised to avoid NSAIDs No GI workup at present, unless active bleeding on fall in HCT Need elective endoscopic evaluation once patient is optimized cardiopulmonary status 11/16/17 22:35
--- NOTE | 2017-11-16 14:39 | PN ---
DATE: 11/16/2017 REASON FOR THE CONSULTATION AND FOLLOWUP: Atrial fibrillation and flutter, cardiomyopathy, coronary artery disease, history of stent in the past, status post respiratory failure during endoscopy. SUBJECTIVE: The patient denies any chest pain, shortness of breath or any palpitation. OBJECTIVE: GENERAL: Not in any apparent distress, sitting at the bedside. VITAL SIGNS: Temperature afebrile, heart rate 62, blood pressure 127/73. HEENT: PERRLA. Extraocular muscles intact. NECK: Supple. No carotid bruit. No thyromegaly. CHEST: Clear to auscultation. HEART: S1 and S2 regular. ABDOMEN: Soft. EXTREMITIES: Clubbing and cyanosis negative. LABORATORY DATA: Blood workup as follows; WBC 5.9, hemoglobin 10, hematocrit 33.2, platelet count 183. Chemistry shows sodium 140, potassium 4.5, chloride 103, carbon dioxide 31, anion gap of 11, BUN 26, creatinine 1.1. Telemetry: Atrial flutter with controlled heart rate of 89. EKG this morning, atrial flutter with variable block rate of 74. IMPRESSION: A 62-year-old male with morbid obesity, body mass index 49, weight of the patient 350 pounds. Admitted with atrial fibrillation/flutter; history of coronary artery disease, status post stent; recent stress test done shows fixed defect, no reversible ischemia, ejection fraction decreased to 20%. The patient underwent endoscopy complicated by respiratory failure requiring intubation, successfully extubated on the medical floor. History of atrial fibrillation/flutter; cardiomyopathy, ischemic and nonischemic; morbid obesity; history of sleep apnea. Rate is well controlled. RECOMMENDATIONS: Continue digoxin. Continue Cardizem. Continue Coreg. Continue lisinopril for heart failure. Continue anticoagulation. Okay to be discharged from Cardiology point of view. Once the patient is okay from Respiratory point of view, the patient needs CPAP. Follow up as outpatient. I have also suggested the patient, the patient get the benefit from radiofrequency ablation and reassess the LV function after radiofrequency ablation. If the EF does not improve, consider AICD. Discussed with the patient, discussed with the patient's as well. We will follow with you. Computer system dictating from the top of the head, unable to also see the patient's lab. For now, continue Cardizem as mentioned. Continue carvedilol, continue digoxin and continue Lasix. We will change Cardizem to CD from tomorrow 180 mg. Computer system is unavailable at this point. Thank you, Dr. Bella, for providing us the opportunity in taking care of the patient, Chaparro Eller. Inez Guillen MD
[2017-11-17 06:22] VITALS: O2SAT 99
--- NOTE | 2017-11-17 06:49 | CP.PCM.PN ---
Subjective - Date & Time of Evaluation Date of Evaluation: 11/17/17 Time of Evaluation: 06:40 - Subjective Subjective: Awake,lying in bed, No distress, awake Reason for consultation and follow up: Cardiac evaluation of new onset atrial fibrillation, elective Thallium Stress test, status post intubation due to respiratory failure during endoscopy Seen and examined by me and Dr. Guillen Objective - Vital Signs/Intake and Output Vital Signs (last 24 hours): Temp Pulse Resp BP Pulse Ox 97.2 F L 68 18 123/54 L 99 11/17/17 06:00 11/17/17 06:00 11/17/17 06:00 11/17/17 06:00 11/17/17 06:00 Intake and Output: 11/16/17 11/17/17 18:59 06:59 Intake Total 1300 480 Output Total 4 Balance 1296 480 - Medications Medications: Current Medications Apixaban (Eliquis) 5 mg PO Q12 [facility]; Protocol Last Admin: 11/16/17 21:34 Dose: 5 mg Aspirin (Aspirin Chewable) 81 mg PO DAILY [facility] Last Admin: 11/16/17 09:23 Dose: 81 mg Atorvastatin Calcium (Lipitor) 10 mg PO DIN [facility] Last Admin: 11/16/17 17:37 Dose: 10 mg Carvedilol (Coreg) 3.125 mg PO BID [facility] Last Admin: 11/16/17 17:37 Dose: 3.125 mg Dextrose (Dextrose 50% Inj) 0 ml IV STAT PRN; Protocol PRN Reason: Hypoglycemia Protocol Digoxin (Lanoxin) 0.25 mg PO 1400 [facility] Last Admin: 11/16/17 14:19 Dose: 0.25 mg Diltiazem HCl (Cardizem Cd) 180 mg PO DAILY [facility] Furosemide (Lasix) 40 mg PO DAILY [facility] Last Admin: 11/16/17 09:23 Dose: 40 mg Dextrose (Dextrose 5% In Water 1000 Ml) 1,000 mls @ 0 mls/hr IV .Q0M PRN; Protocol PRN Reason: Hypoglycemia Protocol Lisinopril (Zestril) 2.5 mg PO DAILY [facility] Last Admin: 11/16/17 09:23 Dose: 2.5 mg Metformin HCl (Glucophage) 500 mg PO BID [facility] Last Admin: 11/16/17 17:37 Dose: 500 mg Pantoprazole Sodium (Protonix Ec Tab) 40 mg PO 0600 [facility] Last Admin: 11/16/17 06:45 Dose: 40 mg Verapamil HCl (Verapamil Inj) 2.5 mg IVP Q6 PRN PRN Reason: Heart rate Last Admin: 11/16/17 12:43 Dose: 2.5 mg - Labs Labs: 11/16/17 06:20 11/16/17 06:20 PT 13.1 SECONDS (9.4-12.5) H 11/12/17 07:30 INR 1.14 11/12/17 07:30 APTT 51.1 Seconds (25.1-36.5) H 11/13/17 08:00 - Constitutional Appears: No Acute Distress - Eye Exam Eye Exam: Normal appearance - Respiratory Exam Respiratory Exam: Decreased Breath Sounds, Clear to Ausculation Bilateral, NORMAL BREATHING PATTERN - Cardiovascular Exam Cardiovascular Exam: Irregular Rhythm, +S1, +S2 Additional comments: Telemetry-aflutter - GI/Abdominal Exam GI & Abdominal Exam: Soft, Normal Bowel Sounds - Back Exam Additional comments: 1-2+ edema - Neurological Exam Neurological Exam: Alert, Awake, Oriented x3 - Psychiatric Exam Psychiatric exam: Normal Affect - Skin Skin Exam: Dry, Warm Assessment and Plan - Assessment and Plan (Free Text) Assessment: 62 year old male morbidly obese who came in for elective stress test and found to be in rapid atrial fibrillation. He was sent to the ER and started on Cardizem drip with bolus.He was also given Digoxin, Verapamil, and beta ba which did not bring the heart rate down. History of coronary artery disease with drug eluding stent on the RCA and LAD, diabetes, hypertension, and hyperlipidemia. Admitted to telemetry on Cardizem drip and Heparin drip. Completed stress test. GI work up for low H/H. IV Cardizem switch to oral. For EGD .Cleared for procedure. 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 stabilized in ICU and eventually extubated. Transferred to telemetry now. Anticoagulated with Eliquis. Plan: No distress, possible discharge today He will follow up with Respiratory for further work up He will be going home with CPAP machine Cardiac status stable for now Telemetry Atrial flutter with controlled rate In future, if stays Afib/aflutter will recommend radiofrequency ablation In the future, may need AICD for low EF (LVEF 22%), will follow up Follow up in office 1-2 weeks He will follow up with GI for further GI work up Stable blood pressure Continue current medications Continue current treatment Lifestyle modifications Weight reduction Glucose control Will follow up Plan and treatment discussed with Dr. Guillen
--- NOTE | 2017-11-17 07:31 | PN ---
DATE: 11/17/2017 PULMONARY NOTE DICTATION SUBJECTIVE: The patient appears very comfortable this morning. He is not short of breath at rest. PHYSICAL EXAMINATION: VITAL SIGNS: Temperature is 97.2, pulse 68, respirations 18, blood pressure 123/54. Oxygen saturation on room air is 99%. HEENT: Normocephalic, atraumatic. No JVD. CARDIOVASCULAR: Positive S1, S2. No S3 gallop. LUNGS: Clear bilaterally. EXTREMITIES: Mild edema. No cyanosis or clubbing. Calves are nontender to palpation. GI: Abdomen is soft, nontender and nondistended. Bowel sounds are positive. SKIN: No acute rash. NEUROLOGIC: Exam limited at the present time. IMPRESSION: 1. Rapid atrial fibrillation. 2. Extensive coronary artery disease, status post multiple cardiac stents. 3. Probable obstructive sleep apnea. 4. Status post respiratory failure. 5. Anemia. PLAN: The patient appears very comfortable this morning. He is not short of breath at rest. He does state to feeling much better overall. I did discuss the case with the night nurse at length. The night nurse stated that the patient had a very good night. On physical exam, his lungs remain clear. In addition, the oxygen saturation on room air is now 99%. I did have a long discussion with the [employer] sales account representative at my office yesterday. The patient has qualified for home oxygen. We are now evaluating the feasibility of the patient getting a trilogy ventilator at home - prior to his sleep testing. This morning, the patient did state to me that he was able to get "the machine" at home. I will check with Finishing Tunnel Operator and [employer] sales account representative again this morning. Clinical status of the patient is significantly improved overall. However, again, the future status/prognosis for this patient does remain somewhat guarded. I will discuss the above with the attending physician this morning. Joo Germain MD [facility]
[2017-11-17] MEDS ORDERED: diltiaZEM 180 mg/24 Hours CD Cap PO SCH (10:00)
[2017-11-17] MEDS: Pantoprazole 40 mg EC Tab PO SCH (10:04)
[2017-11-17 12:09] VITALS: RESP 19; TEMP 98.4
--- NOTE | 2017-11-17 12:48 | PN ---
DATE: 11/17/2017 SUBJECTIVE: The patient is a 62-year-old male who was admitted to the [facility] with new-onset atrial fibrillation and a rapid ventricular response. The patient is known to have a history of hypertension, diabetes, morbid obesity, status post PTCA in 11/2016, history of diabetic foot ulcers and venous stasis and venous insufficiency in the lower extremities. He was admitted on 11/09/2017. He is being followed by his overnight associate, was treated with beta-blockers, calcium channel blockers and his heart rate slowed. Of note, his hemoglobin dropped overnight from admission 9.7 to 8.5 the following morning, therefore, Gastroenterology consult with Dr. Muro was requested. A colonoscopy was scheduled, but as the patient was undergoing induction to anesthesia, his pulse ox dropped to 50%. The patient was therefore intubated, brought to the Intensive Care Unit where he was soon extubated and has been doing well. Has noted that twice during his hospital stay, his pulse ox has dropped considerably to the 80s or high 60s overnight and for this reason, we are awaiting approval for the patient to obtain a CPAP machine to go home with. He is a cardiac patient. He was wearing nasal cannula oxygen at least once during the hypoxic episodes in the hospital during his sleep. We do not want to risk similar episode at home. Case is discussed with Dr. Germain. We are awaiting to hear from the company [email or web address] outside sales representative as far as a loan on a CPAP machine, so the patient could be discharged and as an outpatient undergo sleep apnea studies. Being optimistic in anticipation of approval for this device, medications were reviewed with the patient. Of his previous home medicines, the patient will no longer be taking K-Dur, Mobic, cyclobenzaprine, Plavix or amlodipine, benazepril (Lotrel). I will be calling into [facility] new prescriptions for spironolactone 25 mg daily, diltiazem 180 mg daily, Eliquis 5 mg every 12 hours, digoxin 0.25 mg daily and lisinopril 2.5 mg daily. His other medications as he was taking in the hospital, aspirin, Coreg will be replaced with metoprolol 25 mg twice a day as was at home. He will continue with his metformin and Lasix. Hopeful of discharge to home soon with approval of his CPAP device. Juliano Bella MD
--- NOTE | 2017-11-17 13:50 | CP.PCM.PN ---
<Yuni Estes - Last Filed: 11/17/17 13:45> Subjective - Date & Time of Evaluation Date of Evaluation: 11/17/17 Time of Evaluation: 09:40 - Subjective Subjective: Seen and examined at bedside, chart reviewed, no acute overnight events. Denies N/V abdominal pain, GI bleeding, sob or chest pain. Objective - Vital Signs/Intake and Output Vital Signs (last 24 hours): Temp Pulse Resp BP Pulse Ox 97.2 F L 136 H 18 158/71 H 99 11/17/17 06:00 11/17/17 10:09 11/17/17 06:00 11/17/17 10:09 11/17/17 06:00 Intake and Output: 11/17/17 11/17/17 06:59 18:59 Intake Total 480 Balance 480 - Medications Medications: Current Medications Apixaban (Eliquis) 5 mg PO Q12 [facility]; Protocol Last Admin: 11/17/17 10:03 Dose: 5 mg Aspirin (Aspirin Chewable) 81 mg PO DAILY [facility] Last Admin: 11/17/17 10:03 Dose: 81 mg Atorvastatin Calcium (Lipitor) 10 mg PO DIN [facility] Last Admin: 11/16/17 17:37 Dose: 10 mg Carvedilol (Coreg) 3.125 mg PO BID [facility] Last Admin: 11/17/17 10:09 Dose: 3.125 mg Dextrose (Dextrose 50% Inj) 0 ml IV STAT PRN; Protocol PRN Reason: Hypoglycemia Protocol Digoxin (Lanoxin) 0.25 mg PO 1400 [facility] Last Admin: 11/16/17 14:19 Dose: 0.25 mg Diltiazem HCl (Cardizem Cd) 180 mg PO DAILY [facility] Last Admin: 11/17/17 10:08 Dose: 180 mg Furosemide (Lasix) 40 mg PO DAILY [facility] Stop: 11/17/17 11:00 Last Admin: 11/17/17 10:04 Dose: 40 mg Furosemide (Lasix) 40 mg PO 0800,1400 [facility] Dextrose (Dextrose 5% In Water 1000 Ml) 1,000 mls @ 0 mls/hr IV .Q0M PRN; Protocol PRN Reason: Hypoglycemia Protocol Lisinopril (Zestril) 2.5 mg PO DAILY [facility] Last Admin: 11/17/17 10:08 Dose: 2.5 mg Metformin HCl (Glucophage) 500 mg PO BID [facility] Last Admin: 11/17/17 10:03 Dose: 500 mg Pantoprazole Sodium (Protonix Ec Tab) 40 mg PO 0600 [facility] Last Admin: 11/17/17 10:04 Dose: 40 mg Spironolactone (Aldactone) 25 mg PO DAILY [facility] Last Admin: 11/17/17 10:04 Dose: 25 mg Verapamil HCl (Verapamil Inj) 2.5 mg IVP Q6 PRN PRN Reason: Heart rate Last Admin: 11/16/17 12:43 Dose: 2.5 mg - Labs Labs: 11/16/17 06:20 11/16/17 06:20 PT 13.1 SECONDS (9.4-12.5) H 11/12/17 07:30 INR 1.14 11/12/17 07:30 APTT 51.1 Seconds (25.1-36.5) H 11/13/17 08:00 - Constitutional Appears: No Acute Distress - Head Exam Head Exam: NORMOCEPHALIC - Eye Exam Eye Exam: Normal appearance - ENT Exam ENT Exam: Mucous Membranes Moist - Respiratory Exam Respiratory Exam: Respiratory Distress, NORMAL BREATHING PATTERN Additional comments: no rales or wheeze - Cardiovascular Exam Cardiovascular Exam: +S1, +S2 - GI/Abdominal Exam GI & Abdominal Exam: Soft, Normal Bowel Sounds Additional comments: softly obese, non tender - Extremities Exam Additional comments: venous stasis, no calf tenderness - Neurological Exam Neurological Exam: Alert, Awake Assessment and Plan - Assessment and Plan (Free Text) Assessment: ASSESSMENT: New Onset Atrial Fibrillation Anemia, r/o GIB, PUD JUSTIN h/o Gastric Ulcer Chronic Back Pain, NSAID use Morbid Obesity DM HTN Poor Ejection fraction 17% Plan: s/p EGD 11/12/17 aborted due to acute hypoxia. Small amount of blood observed in distal stomach/duodenum. Cannot comment on source as exam aborted quickly into procedure. He will need to be intubated if we are to evaluate upper and lower GI system in the future. -H/H stable -Continue to monitor with serial CBC's -Heart Healthy Moderate Carbohydrate Consistent Diet -Continue daily PPI. Avoid NSAIDs. -All risks and benefits from GI perspective explained to patient regarding going home, not having the procedure at this time, avoiding NSAIDs, need for intubation for future procedures, Eliquis medication and the need for close follow up. Patient for possible dc home today, will be sent on home O2w/sleep machine, endorses that he will FU with pulmonary in 2-3 weeks, as well as cardiology and hiw PCP, he was instructed to FU in our office 3-4 weeks after pulmonology/cardiology FU. Patient will be dc on Eliquis, instructed to monitor for any signs of bleeding. Dicuss w/ PCP. Discussed/reviewed w/ Dr. Muro. <Sarah Muro V - Last Filed: 11/17/17 22:48> Objective - Vital Signs/Intake and Output Vital Signs (last 24 hours): Temp Pulse Resp BP Pulse Ox 98.4 F 96 H 19 135/62 99 11/17/17 12:00 11/17/17 14:00 11/17/17 12:00 11/17/17 14:07 11/17/17 06:00 Intake and Output: 11/17/17 11/18/17 18:59 06:59 Intake Total 720 Balance 720 - Labs Labs: 11/16/17 06:20 11/16/17 06:20 PT 13.1 SECONDS (9.4-12.5) H 11/12/17 07:30 INR 1.14 11/12/17 07:30 APTT 51.1 Seconds (25.1-36.5) H 11/13/17 08:00 Attending/Attestation - Attestation I have personally seen and examined this patient.: Yes I have fully participated in the care of the patient.: Yes I have reviewed all pertinent clinical information, including history, physical exam and plan: Yes Notes (Text): This is an addendum to GI progress report dictated by Yuni Estes APN.The pat ient was seen and examined earlier. Medical records, lab studies, imagings were reviewed. Last 24 hours events reviewed. Agreed with the above treatment plan as outlined in Yuni Estes APN's notes with the addition of the following hb stable On Eliquis for a.fib On PPI Avoid NSAID Followup hb 11/17/17 22:47
[2017-11-17] MEDS: Digoxin 250 mcg (0.25 mg) Tab PO SCH (14:07)
[2017-11-17 14:12] VITALS: BP 135/62; PULSE 102
[2017-11-17 15:37] VITALS: PULSE 96
--- NOTE | 2017-11-18 08:50 | PN ---
DATE: 11/17/2017 REASON FOR DICTATION: Addendum to initial progress note dictated by the nurse practitioner. The patient has a history of morbid obesity, cardiomyopathy, atrial fibrillation and flutter; history of sleep apnea, waiting for CPAP machine. RECOMMENDATIONS: To continue anticoagulation. Continue Coreg. Continue Cardizem. Continue furosemide, we will increase twice one at 08:00 p.m. and one at 03:00 p.m. We will add on also spironolactone, heart failure therapy. Continue digoxin and continue Cardizem to control the heart rate. Recent stress test abnormal, ejection fraction 20%. Echo shows 4 chamber dilatation. Suggest radiofrequency ablation and after that reassess LV function. If it remains below 35, consider AICD. Discussed with the patient in length. We will follow with you. We will also add spironolactone 25 daily and increase the Lasix to 40 mg at 08:00 a.m. and 02:00 p.m. We will follow with you. Last digoxin level was 1.51 on 11/16/2017. We will repeat digoxin level in the morning. Thank you Dr. Bella for providing us the opportunity in taking care of the patient, Chaparro Eller. Inez Guillen MD
== END 2017-11-17 15:57 | disposition home or self-care (01) | DRG 308 ==
LOC: ED 11:22 → ERH 13:14 → 2RNO 16:29 → CCU 11-12 16:09 → 2RSO 11-15 19:50
PROVIDERS: ADMIT Internal Medicine; ATTEND Internal Medicine
PROC: 0BH17EZ Insertion of Endotracheal Airway into Trachea, Via Natural or Artificial Opening (ICD-10-PCS; 2017-11-12)
PROC: 0DJ08ZZ Inspection of Upper Intestinal Tract, Via Natural or Artificial Opening Endoscopic (ICD-10-PCS; principal; 2017-11-12 15:45)
DX: I48.91 Unspecified atrial fibrillation (principal); J96.91 Respiratory failure, unspecified with hypoxia; J96.92 Respiratory failure, unspecified with hypercapnia; I13.0 Hypertensive heart and chronic kidney disease with heart failure and stage 1 through stage 4 chronic kidney disease, or unspecified chronic kidney disease; K92.2 Gastrointestinal hemorrhage, unspecified; Z68.42 Body mass index [BMI] 45.0-49.9, adult; I48.92 Unspecified atrial flutter; I50.9 Heart failure, unspecified; N18.9 Chronic kidney disease, unspecified; D64.9 Anemia, unspecified; E11.22 Type 2 diabetes mellitus with diabetic chronic kidney disease; E66.01 Morbid (severe) obesity due to excess calories; E78.5 Hyperlipidemia, unspecified; G47.33 Obstructive sleep apnea (adult) (pediatric); G89.29 Other chronic pain; I25.10 Atherosclerotic heart disease of native coronary artery without angina pectoris; I42.9 Cardiomyopathy, unspecified; I87.2 Venous insufficiency (chronic) (peripheral); I87.8 Other specified disorders of veins; Z88.2 Allergy status to sulfonamides; K21.9 Gastro-esophageal reflux disease without esophagitis; Z53.09 Procedure and treatment not carried out because of other contraindication; Z79.02 Long term (current) use of antithrombotics/antiplatelets; Z79.82 Long term (current) use of aspirin; Z79.1 Long term (current) use of non-steroidal anti-inflammatories (NSAID); Z79.84 Long term (current) use of oral hypoglycemic drugs; Z87.11 Personal history of peptic ulcer disease; Z87.442 Personal history of urinary calculi; Z90.49 Acquired absence of other specified parts of digestive tract; Z95.5 Presence of coronary angioplasty implant and graft; Z82.49 Family history of ischemic heart disease and other diseases of the circulatory system; R00.0 Tachycardia, unspecified; I45.10 Unspecified right bundle-branch block